=== PATIENT | female | born 1950 | race Caucasian/White ===

== ENCOUNTER → 2016-05-10 | Outpatient (CLI) | payer BC ==
[~2016-05-10] VITALS: Ht 162.6 cm; Wt 68.0 kg
[~2016-05-10] MED LIST: ACDPT PO; ACET-2469 PO; CETI10TA20 PO; CHOL50005 PO; MAGN500T PO; MULT-642 PO; OMG1KC PO; PNT40TEC; SIME125C PO; UBID10CA5 PO; ZLP10T PO; ZOLP10TA PO; [UNRECOGNIZED DRUG - CODE]
--- OUTSIDE RECORDS SUMMARY | 2016-05-10 09:30 | XMS REPORT | Continuity of Care Document ---
Author Author [facility] Organization [facility] Address Unknown Phone Unavailable Care Team Providers Care Egg Processor Name Role Phone Rajan Woods PCP [phone] Source Comments Some departments are not documenting in the electronic medical record. If you do not see the information that you expected, contact Release of Information in the Health Information Management department at [phone] for further assistance in locating additional records.[facility] Active Allergies and Adverse Reactions Allergen Noted Date Severity Reactions Comments Codeine 02/06/2016 Low NAUSEA AND VOMITING Morphine 02/06/2016 Medium SHORTNESS OF BREATH, ITCHING Sterapred 02/06/2016 High SWOLLEN TONGUE Current Medications Prescription Sig. Disp. Refills Start End Date Status Date Simethicone (GAS-X) 125 Take by mouth. Active mg cap cetirizine (ZYRTEC) 10 mg Take 10 mg by mouth at Active tablet bedtime daily. acetaminophen (TYLENOL) Take 1,000 mg by mouth at Active 500 mg tablet bedtime as needed for Pain. Max of 4,000 mg of acetaminophen in 24 hours. fish oil /omega-3 fatty Take 1 Cap by mouth Active acids (SEA-OMEGA) daily. 340/1000 mg capsule ranitidine hcl(+) Take 150 mg by mouth Active (ZANTAC) 150 mg tablet daily. Active Problems No known active problems Most Recent Encounters Date Type Specialty Providers Description 04/11/2016 Telephone GastroenterAdolfo Garcia MD Medication Follow-up 03/26/2016 Orders Only Adolfo Pinto MD 03/22/2016 Telephone Adolfo Pinto MD Follow-up Phone Call 03/22/2016 Result Letter Eagle Florez MD 03/19/2016 Telephone Adolfo Pinto MD Results; Records Request 03/16/2016 [facility] Eagle Barragan MD Diarrhea, unspecified Encounter 03/16/2016 Hospital Radiology Adolfo Newberry MD Encounter 03/14/2016 Screening Form 02/10/2016 Surgery Adolfo Newberry MD HYDROGEN BREATH TEST for weight loss , diarrhea 02/08/2016 Telephone Gastroenterology Adolfo Newberry MD Follow-up Phone Call 02/08/2016 [facility] Grant Ma MD Diarrhea Encounter 02/08/2016 Telephone Pretty Starkey RN Pre-Procedure Instructions Social History Tobacco Use Types Packs/Day Years Used Date Never Smoker Alcohol Use Drinks/Week oz/Week Comments No 0 Standard 0.0 drinks or equivalent Last Filed Vital Signs Vital Sign Reading Time Taken Blood Pressure 159/85 02/06/2016 8:34 AM CDT Pulse 96 02/06/2016 8:34 AM CDT Temperature 36.4 C (97.5 F) 02/06/2016 8:34 AM CDT Respiratory Rate 16 02/06/2016 8:34 AM CDT Height 1.676 m (5' 6") 02/06/2016 8:34 AM CDT Weight 72.576 kg (160 lb) 02/10/2016 9:23 AM CDT Body Mass Index 25.84 02/10/2016 9:23 AM CDT Oxygen Saturation - - Plan of Care Date Type Specialty Providers Description 06/18/2016 Appointment Allergy,Immunology and Kristi Agee DO Rheumatology [address] [facility] [address] [place] [address] [phone] (Fax) Health Maintenance Due Date Last Done Comments Hepatitis C Screening 1950 Physical (Comprehensive) 1958 Exam Pertussis Vaccine 1962 Tetanus Vaccine 1968 Cervical Cancer Screening 1972 Breast Cancer Screening 1991 Shingles Vaccine 2011 Influenza Vaccine 12/08/2015 Colorectal Cancer 03/16/2026 03/16/2016 Screening Procedures from Last 3 Months Procedure Name Priority Date/Time Associated Diagnosis Comments PROCEDURES-SCAN 02/17/2016 Results for this 1:46 PM VENEER PATCHER procedure are in the results section. HYDROGEN BREATH TEST for 02/10/2016 Weight loss weight loss , diarrhea 9:45 AM CDT Results from Last [address] ABD/PELV W CONTRAST (03/16/2016 2:05 PM) Impressions 1. No bowel obstruction, inflammatory mass, abscess or fistula. 2. No abdominal or pelvic adenopathy. Approved by Berna Duarte M.D. on 03/16/2016 3:20 PM By my electronic signature, I attest that I have personally reviewed the images for this examination and formulated the interpretations and opinions expressed in this report Finalized by Florinda Gallardo M.D. on 03/16/2016 3:47 PM. Dictated by Berna Duarte M.D. on 03/16/2016 2:[address] ABDOMEN AND PELVIS Clinical Indication:Female, 65 years old. Diarrhea and bloating. Prior Milena fundoplication. Evaluate for Whipple disease. Technique:Multiple contiguous axial images were obtained through the abdomen and pelvis following the administration of IV contrast material. Portal venous and delayed imaging was obtained. Post processing coronal and sagittal reconstruction images were made from the axial images. IV contrast: Isovue-370 Bowel contrast:Breeza and water Comparison: None FINDINGS: Lower Thorax: Mild dependent atelectasis. The heart is normal in size without significant pericardial effusion.. Liver and Biliary system: The liver is normal in size without focal hepatic lesion. The major portal veins are patent. The gallbladder is unremarkable. No biliary ductal dilatation. Spleen: The spleen is upper limits of normal in size. Adrenal Glands and Kidneys: The adrenal glands and kidneys are unremarkable. Pancreas and Retroperitoneum: Pancreas unremarkable. No enlarged retroperitoneal lymph nodes. Aorta and Major Vessels: Abdominal aorta is normal in caliber with mild aortoiliac atherosclerotic plaque. Bowel, Mesentery and Peritoneal space: Postsurgical changes of Milena fundoplica tion. The large and small bowel loops are normal in caliber. No bowel obstruction, ascites, or lymphadenopathy. Pelvis: The mildly distended urinary bladder is unremarkable. The uterus is absent. No enlarged pelvic lymph nodes or ascites. Abdominal wall and Osseous Structures: Mild degenerative changes of the thoracolumbar spine. Minimal anterolisthesis of L4-L5. Procedure Note Interface, Radiant Results - SatMar 16, 2016 3:[address] ABDOMEN AND PELVIS Clinical Indication: Female, 65 years old. Diarrhea and bloating. Prior Milena fundoplication. Evaluate for Whipple disease. Technique: Multiple contiguous axial images were obtained through the abdomen and pelvis following the administration of IV contrast material. Portal venous and delayed imaging was obtained. Post processing coronal and sagittal reconstruction images were made from the axial images. IV contrast: Isovue-370 Bowel contrast: Breeza and water Comparison: None FINDINGS: Lower Thorax: Mild dependent atelectasis. The heart is normal in size without significant pericardial effusion.. Liver and Biliary system: The liver is normal in size without focal hepatic lesion. The major portal veins are patent. The gallbladder is unremarkable. No biliary ductal dilatation. Spleen: The spleen is upper limits of normal in size. Adrenal Glands and Kidneys: The adrenal glands and kidneys are unremarkable. Pancreas and Retroperitoneum: Pancreas unremarkable. No enlarged retroperitoneal lymph nodes. Aorta and Major Vessels: Abdominal aorta is normal in caliber with mild aortoiliac atherosclerotic plaque. Bowel, Mesentery and Peritoneal space: Postsurgical changes of Milena fundoplication. The large and small bowel loops are normal in caliber. No bowel obstruction, ascites, or lymphadenopathy. Pelvis: The mildly distended urinary bladder is unremarkable. The uterus is absent. No enlarged pelvic lymph nodes or ascites. Abdominal wall and Osseous Structures: Mild degenerative changes of the thoracolumbar spine. Minimal anterolisthesis of L4-L5. IMPRESSION 1. No bowel obstruction, inflammatory mass, abscess or fistula. 2. No abdominal or pelvic adenopathy. Approved by Berna Duarte M.D. on 03/16/2016 3:20 PM By my electronic signature, I attest that I have personally reviewed the images for this examination and formulated the interpretations and opinions expressed in this report Finalized by Florinda Gallardo M.D. on 03/16/2016 3:47 PM. Dictated by Berna Duarte M.D. on 03/16/2016 2:23 PM. POC CREATININE, RAD (03/16/2016 1:22 PM) Component Value Range Creatinine, POC 0.8 0.4-1.00 mg/dL SURGICAL PATHOLOGY (03/16/2016 10:12 AM) Component Value Range PATHOLOGY REPORT [facility] [email or web address] Mica Hart MD, PhD, Director of Anatomic Pathology Department of Pathology and Laboratory Medicine [address] [place] [phone] Surgical Pathology Office: [phone] SURGICAL PATHOLOGY REPORT NAME: KEREN CLAY SURG PATH #: [id number] MR #: [id number] SPECIMEN CLASS: SR BILLING #: [id number] ALT ID #: LOCATION: [facility] DATE OF PROCEDURE: 03/16/2016 AGE: 65 SEX: F DATE RECEIVED: 03/17/2016 : 1950 TIME RECEIVED: 10:12 PHYSICIAN: ADOLFO NEWBERRY M.D. DATE OF REPORT: 03/20/2016 COPY TO: [facility] DATE OF PRINTIN03/21/2016 ################################################## ###################### Final Diagnosis: A. Small bowel mucosa, "duodenal", bx: Normal villous architecture. Congo red special stain is negative for amyloid deposition. B. Gastric mucosa, "gastric bx random", biopsy: No diagnostic abnormalities. No H. pylori-like organisms are identified on H and E sections. Congo red special stain is negative for amyloid deposition. C. Colonic mucosa, "random colon", bx: No diagnostic abnormalities. Congo red special stain is negative for amyloid deposition. D. Colonic mucosa, "rectal", bx: No diagnostic abnormalities. Congo red special stain is negative for amyloid deposition. Attestation: By this signature, I attest that I have personally formulated the final interpretation expressed in this report and that the above diagnosis is based upon my examination of the slides and/or other material indicated in this report. +++Electronically Signed Out By+++ ksw/03/19/2016 Interpreted by: Luis Wilson MD, Attending Physician 03/20/2016 ################################################## ###################### Material Received: A: duodenal bx B: gastric bx random C: random colon bx D: rectal bx History: 65-year-old female with a history of diarrhea, bloating and weight loss. Gross Description: A. Received in formalin labeled "duodenal biopsy" is a 0.6 x 0.5 x 0.2 cm aggregate of laureano-brown soft tissue fragments. The specimen is entirely submitted in cassette A1. (djm) B. Received in formalin labeled "random gastric biopsy" is a 0.5 x 0.3 x 0.2 cm aggregate of laureano-brown soft tissue fragments. The specimen is entirely submitted in cassette B1. (djm) C. Received in formalin labeled "random colon biopsy" is a 0.8 x 0.7 x 0.2 cm aggregate of laureano-brown soft tissue fragments. The specimen is entirely submitted in cassette C1. (djm) D. Received in formalin labeled "rectal biopsy" is a 1.1 x 0.7 x 0.2 cm aggregate of laureano-brown soft tissue fragments. The specimen is entirely submitted in cassette D1. (djm) djm/03/17/2016 ENDOSCOPIC ULTRASOUND (03/16/2016)COLONOSCOPY (03/16/2016)PROCEDURES-SCAN (02/16 1:46 PM) Narrative Ordered by an unspecified provider.
--- OUTSIDE RECORDS SUMMARY | 2016-05-10 09:31 | XMS REPORT | Continuity of Care Document ---
Author Author [facility] Organization [facility] Address Unknown Phone Unavailable Care Team Providers Care Tar Worker Name Role Phone Rajan Woods PCP [phone] Source Comments Some departments are not documenting in the electronic medical record. If you do not see the information that you expected, contact Release of Information in the Health Information Management department at [phone] for further assistance in locating additional records.[facility] Active Allergies and Adverse Reactions Allergen [...] Adolfo Pinto MD Results; Records Request 03/16/2016 [facility] Eagle Barragan MD Diarrhea, unspecified Encounter 03/16/2016 Hospital Radiology Adolfo Newberry MD Encounter 03/14/2016 Screening Form 02/10/2016 Surgery Adolfo Newberry MD HYDROGEN BREATH TEST for weight loss , diarrhea 02/08/2016 Telephone Gastroenterology Adolfo Newberry MD Follow-up Phone Call 02/08/2016 [facility] Grant Ma MD Diarrhea Encounter 02/08/2016 Telephone [...] Allergy,Immunology and Kristi Agee DO Rheumatology [address] [facility] [address] [place] [address] [phone] (Fax) Health Maintenance Due Date Last Done Comments Hepatitis C Screening 1950 Physical (Comprehensive) 1958 Exam Pertussis Vaccine 1962 Tetanus Vaccine 1968 Cervical Cancer Screening 1972 Breast Cancer Screening 1991 Shingles Vaccine 2011 Influenza Vaccine 12/08/2015 Colorectal Cancer 03/16/2026 03/16/2016 Screening Procedures from Last 3 Months Procedure Name Priority Date/Time Associated Diagnosis Comments PROCEDURES-SCAN 02/17/2016 Results for this 1:46 PM EYEGLASS CUTTER procedure are in the results section. HYDROGEN [...] Results - SatMar 16, 2016 3:[address] ABDOMEN AND PELVIS Clinical Indication: Female, [...] AM) Component Value Range PATHOLOGY REPORT [facility] [email or web address] Mica Hart MD, PhD, Director of Anatomic Pathology Department of Pathology and Laboratory Medicine [address] [place] [phone] Surgical Pathology Office: [phone] SURGICAL PATHOLOGY REPORT NAME: KEREN CLAY SURG PATH #: [id number] MR #: [id number] SPECIMEN CLASS: SR BILLING #: [id number] ALT ID #: LOCATION: [facility] DATE OF PROCEDURE: 03/16/2016 AGE: 65 SEX: F DATE RECEIVED: 03/17/2016 : 1950 TIME RECEIVED: 10:12 PHYSICIAN: ADOLFO NEWBERRY M.D. DATE OF REPORT: 03/20/2016 COPY TO: [facility] DATE OF PRINTIN03/21/2016 ################################################## ###################### Final [...]
[2016-05-10 10:09] LABS: BASOPHILS % (AUTO) 0 % (0-10); EOSINOPHILS # (AUTO) 0.1 10^3/uL (0.0-0.3); EOSINOPHILS % (AUTO) 2 % (0-10); LYMPHOCYTES # (AUTO) 1.2 X 10^3 (1.0-4.0); LYMPHOCYTES % (AUTO) 40 % (12-44); MEAN CORPUSCULAR HEMOGLOBIN 29 PG (25-34); MEAN CORPUSCULAR HGB CONC 34 G/DL (32-36); MEAN CORPUSCULAR VOLUME 87 FL (80-99); MEAN PLATELET VOLUME 9.7 FL (7.4-10.4); MONOCYTES # (AUTO) 0.3 X 10^3 (0.0-1.0); MONOCYTES % (AUTO) 11 % (0-12); NEUTROPHILS # (AUTO) 1.4 X 10^3 (1.8-7.8); NEUTROPHILS % (AUTO) 47 % (42-75); PLATELET COUNT 201 10^3/uL (130-400); RED BLOOD COUNT 4.54 10^6/uL (4.35-5.85)
--- NOTE | 2016-05-10 10:56 | Progress Note-Standard ---
Standard Progress Note Progress Notes/Assess & Plan Progress/Assessment & Plan consult for lumbar puncture pt chart reviewed. ct normal. platelets wnl. start time 1025 end time 1044 in sitting position skin prepped and draped under sterile technique. subarachnoid space id'd with positive csf return at lumbar 2-3 x 1 attempt.. appearance clear. opening pressure 16 cm H2O. 3 cc x 4 vials drawn off and labeled for lab examination. needle withdrawn. pt tolerated procedure well. bp 110\77 hr 61 resp 16. sao2 99% FLAVIO CHO CRNA May 10, 2016 10:56
[2016-05-10 11:34] LABS: APPEARANCE,CSF CLEAR; COLOR,CSF COLORLESS; WHITE BLOOD CELL,CSF 0 CELLS (0-5)
[2016-05-10 11:35] VITALS: BP 110/71
[2016-05-10 11:46] LABS: CSF GLUCOSE 57 MG/DL (50-80); CSF TOTAL PROTEIN 19 MG/DL (15-40)
[2016-05-14 08:02] LABS: CSF VDRL Non Reactive (NON REACTIV)
--- OUTSIDE RECORDS SUMMARY | 2016-05-21 15:10 | XMS REPORT | Continuity of Care Document ---
Author Author [facility] Organization [facility] Address Unknown Phone Unavailable Care Team Providers Care Edge Runner Name Role Phone Rajan Woods PCP [phone] Source Comments Some departments are not documenting in the electronic medical record. If you do not see the information that you expected, contact Release of Information in the Health Information Management department at [phone] for further assistance in locating additional records.[facility] Active Allergies and Adverse Reactions Allergen [...] Adolfo Pinto MD Results; Records Request 03/16/2016 [facility] Eagle Brady MD Diarrhea, unspecified Encounter 03/16/2016 Hospital Radiology [...] Allergy,Immunology and Kristi Agee DO Rheumatology [address] [facility] [address] [place] [address] [phone] (Fax) Health Maintenance Due Date Last Done Comments Hepatitis C Screening 1950 Physical (Comprehensive) 1958 Exam Pertussis Vaccine 1962 Tetanus Vaccine 1968 Cervical Cancer Screening 1972 Breast Cancer Screening 1991 Shingles Vaccine 2011 Influenza Vaccine 12/08/2015 Colorectal Cancer 03/16/2026 03/16/2016 Screening Results from Last [address] ABD/PELV [...] Results - SatMar 16, 2016 3:[address] ABDOMEN AND PELVIS Clinical Indication: Female, [...] AM) Component Value Range PATHOLOGY REPORT [facility] www.[email or web address] Mica Hart MD, PhD, Director of Anatomic Pathology Department of Pathology and Laboratory Medicine [address] [place] [phone] Surgical Pathology Office: [phone] SURGICAL PATHOLOGY REPORT NAME: KEREN CLAY SURG PATH #: [id number] MR #: [id number] SPECIMEN CLASS: SR BILLING #: [id number] ALT ID #: LOCATION: [facility] DATE OF PROCEDURE: 03/16/2016 AGE: 65 SEX: F DATE RECEIVED: 03/17/2016 : 1950 TIME RECEIVED: 10:12 PHYSICIAN: ADOLFO NEWBERRY M.D. DATE OF REPORT: 03/20/2016 COPY TO: E[facility]LE BRAD[facility] DATE OF PRINTIN03/21/2016 ################################################## ###################### Final [...] is entirely submitted in cassette D1. (djm) kiana/03/17/2016 ENDOSCOPIC ULTRASOUND (03/16/2016)COLONOSCOPY (03/16/2016)
== END ==
LOC: SDC 09:25 → EDSTATUS 10:00
PROVIDERS: ATTEND Anesthesiology
DX: R51 Headache (principal); H53.9 Unspecified visual disturbance; R50.9 Fever, unspecified; Z20.828 Contact with and (suspected) exposure to other viral communicable diseases
CPT/HCPCS: 36415; 82945; 84157; 85025; 86592; 87070; 87116; 87205; 87252; 89051

== ENCOUNTER 2016-05-17 14:35 | Outpatient (RCR) | payer BC ==
--- OUTSIDE RECORDS SUMMARY | 2016-05-14 14:40 | XMS REPORT | Continuity of Care Document ---
Author Author [facility] Organization [facility] Address Unknown Phone Unavailable Care Team Providers Care Acid Splicer Name Role Phone Rajan Woods PCP [phone] Source Comments Some departments are not documenting in the electronic medical record. If you do not see the information that you expected, contact Release of Information in the Health Information Management department at [phone] for further assistance in locating additional records.[facility] Active Allergies and Adverse Reactions Allergen Noted [...] Adolfo Pinto MD Results; Records Request 03/16/2016 [facility] Eagle Barragan MD Diarrhea, unspecified Encounter 03/16/2016 Hospital Radiology Adolfo Newberry MD Encounter 03/14/2016 Screening Form Social History Tobacco Use Types Packs/Day Years [...] Allergy,Immunology and Kristi Agee DO Rheumatology [address] [facility] [address] [place] [address] [phone] (Fax) Health Maintenance Due Date Last Done Comments Hepatitis C Screening 1950 Physical (Comprehensive) 1958 Exam Pertussis Vaccine 1962 Tetanus Vaccine 1968 Cervical Cancer Screening 1972 Breast Cancer Screening 1991 Shingles Vaccine 2011 Influenza Vaccine 12/08/2015 Colorectal Cancer 03/16/2026 03/16/2016 Screening Procedures from Last 3 Months Procedure Name Priority Date/Time Associated Diagnosis Comments PROCEDURES-SCAN 02/17/2016 Results for this 1:46 PM GINNING 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 Results from Last [address] ABD/PELV [...] Results - SatMar 16, 2016 3:[address] ABDOMEN AND PELVIS Clinical Indication: Female, [...] AM) Component Value Range PATHOLOGY REPORT [facility] [email or web address] Victor Mica Hart MD, PhD, Director of Anatomic Pathology Department of Pathology and Laboratory Medicine [address] [place] [phone] Surgical Pathology Office: [phone] SURGICAL PATHOLOGY REPORT NAME: KEREN CLAY SURG PATH #: [id number] MR #: [id number] SPECIMEN CLASS: SR BILLING #: [id number] ALT ID #: LOCATION: [facility] DATE OF PROCEDURE: 03/16/2016 AGE: 65 SEX: F DATE RECEIVED: 03/17/2016 : 1950 TIME RECEIVED: 10:12 PHYSICIAN: ADOLFO NEWBERRY M.D. DATE OF REPORT: 03/20/2016 COPY TO: E[facility]LE [facility] DATE OF PRINTIN03/21/2016 ################################################## ###################### Final [...]
--- OUTSIDE RECORDS SUMMARY | 2016-05-15 14:39 | XMS REPORT | Continuity of Care Document ---
Author Author [facility] Organization [facility] Address Unknown Phone Unavailable Care Team Providers Care Lapel Stitcher Name Role Phone Rajan Woods PCP [phone] Source Comments Some departments are not documenting in the electronic medical record. If you do not see the information that you expected, contact Release of Information in the Health Information Management department at [phone] for further assistance in locating additional records.[facility] Active Allergies and Adverse Reactions Allergen [...] Date Type Specialty Providers Description 04/11/2016 Telephone GastroenterAdlofo Garcia MD Medication Follow-up 03/26/2016 Orders Only Adolfo Pinto MD 03/22/2016 Telephone Adolfo Pinto MD Follow-up Phone Call 03/22/2016 Result Letter Eagle Florez MD 03/19/2016 Telephone Adolfo Pinto MD Results; Records Request 03/16/2016 [facility] Eagle Barragan MD Diarrhea, unspecified Encounter [...] Providers Description 06/18/2016 Appointment Allergy,Immunology and Kristi Aege DO Rheumatology [address] [facility] [address] [place] [address] [phone] (Fax) Health Maintenance Due Date Last Done Comments Hepatitis C Screening 1950 Physical (Comprehensive) 1958 Exam Pertussis Vaccine 1962 Tetanus Vaccine 1968 Cervical Cancer Screening 1972 Breast Cancer Screening 1991 Shingles Vaccine 2011 Influenza Vaccine 12/08/2015 Colorectal Cancer 03/16/2026 03/16/2016 Screening Procedures from Last 3 Months Procedure Name Priority Date/Time Associated Diagnosis Comments PROCEDURES-SCAN 02/17/2016 Results for this 1:46 PM CONCRETE BATCH PLANT 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 [...] Results - SatMar 16, 2016 3:50 PM CONCRETE BATCH PLANT OPERATOR CT ABDOMEN AND PELVIS Clinical Indication: [...] Value Range PATHOLOGY REPORT [facility] [email or web address] Mica Hart MD, PhD, Director of Anatomic Pathology Department of Pathology and Laboratory Medicine [address] [place] [phone] Surgical Pathology Office: [phone] SURGICAL PATHOLOGY REPORT NAME: KEREN CLAY SURG PATH #: [id number] MR #: [id number] SPECIMEN CLASS: SR BILLING #: [id number] ALT ID #: LOCATION: [facility] DATE OF PROCEDURE: 03/16/2016 AGE: 65 SEX: F DATE RECEIVED: 03/17/2016 : 1950 TIME RECEIVED: 10:12 PHYSICIAN: ADOLFO NEWBERRY M.D. DATE OF REPORT: 03/20/2016 COPY TO: EAGLE OLYAEE [facility] DATE OF PRINTIN03/21/2016 ################################################## ###################### Final Diagnosis: [...]
== END 2016-08-12 | disposition home or self-care (01) ==
LOC: LAB 14:35
PROVIDERS: ATTEND Nurse Practitioner Family
DX: K58.9 Irritable bowel syndrome, unspecified (principal); R63.4 Abnormal weight loss
CPT/HCPCS: 82274; 87045; 87046; 87177

== ENCOUNTER → 2016-06-01 | Outpatient (CLI) | payer BC ==
--- OUTSIDE RECORDS SUMMARY | 2016-06-01 11:21 | XMS REPORT | Continuity of Care Document ---
Author Author [facility] Organization [facility] Address Unknown Phone Unavailable Care Team Providers Care Research Asst Name Role Phone Rajan Woods PCP [phone] Source Comments Some departments are not documenting in the electronic medical record. If you do not see the information that you expected, contact Release of Information in the Health Information Management department at [phone] for further assistance in locating additional records.[facility] Active Allergies and Adverse Reactions Allergen [...] Adolfo Pinto MD Results; Records Request 03/16/2016 [facility] Eagle Brady MD Diarrhea, unspecified Encounter [...] Allergy,Immunology and Kristi Agee DO Rheumatology [address] [facility] [address] [place] [address] [phone] (Fax) Health Maintenance Due Date Last Done [...] Results - SatMar 16, 2016 3:50 PM SED 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 [email or web address] Mica Hart MD, PhD, Director of Anatomic Pathology Department of Pathology and Laboratory Medicine [address] [place] [phone] Surgical Pathology Office: [phone] SURGICAL PATHOLOGY REPORT NAME: KEREN CLAY SURG PATH #: [id number] MR #: [id number] SPECIMEN CLASS: SR BILLING #: [id number] ALT ID #: LOCATION: [facility] DATE OF PROCEDURE: 03/16/2016 AGE: 65 SEX: F DATE RECEIVED: 03/17/2016 : 1950 TIME RECEIVED: 10:12 PHYSICIAN: ADOLFO NEWBERRY M.D. DATE OF REPORT: 03/20/2016 COPY TO: E[facility]LE BRAD[facility] DATE OF PRINTIN03/21/2016 ################################################## ###################### Final Diagnosis: [...]
--- NOTE | 2016-06-01 13:00 | Diagnostic Imaging Report ---
PROCEDURE: US Carotid Duplex Bilateral. TECHNIQUE: Multiple real-time grayscale images were obtained over the carotid arteries in various projections bilaterally. Additional duplex Doppler and color Doppler images were also obtained. INDICATION: Ataxia. Dizziness. FINDINGS: There is moderate plaquing noted in the carotid bulbs bilaterally. This is predominantly calcified. Waveforms and peak velocities are normal throughout the carotid arteries as well as vertebral arteries throughout the neck. Carotid ratios are symmetrical. IMPRESSION: Moderate atherosclerotic plaquing with no hemodynamic changes present within the carotid arteries. Stenosis is estimated to be 30% or less bilaterally within the internal carotid arteries. Dictated by: Dictated on workstation # [id number]
== END ==
LOC: RAD 11:17
PROVIDERS: ATTEND Internal Medicine
DX: I65.23 Occlusion and stenosis of bilateral carotid arteries (principal)
CPT/HCPCS: 93880

== ENCOUNTER 2016-06-22 11:25 | Outpatient (RCR) | payer BC ==
--- OUTSIDE RECORDS SUMMARY | 2016-06-22 11:29 | XMS REPORT | Continuity of Care Document ---
Author Author [facility] Organization [facility] Address Unknown Phone Unavailable Care Team Providers Care Cello Teacher Name Role Phone PeggyRajan PCP [phone] Source Comments Some departments are not documenting in the electronic medical record. If you do not see the information that you expected, contact Release of Information in the Health Information Management department at [phone] for further assistance in locating additional records.[facility] Active Allergies and Adverse Reactions Allergen Noted Date Severity Reactions Comments Azithromycin 06/18/2016 High ANGIOEDEMA Within a few minutes, she had tongue swelling. Codeine 02/06/2016 Low NAUSEA AND VOMITING Morphine 02/06/2016 Medium SHORTNESS OF BREATH, ITCHING Current Medications Prescription Sig. Disp. Refills Start End Date Status Date Simethicone (GAS-X) 125 Take by mouth. Active mg cap cetirizine (ZYRTEC) 10 mg Take 10 mg by mouth at Active tablet bedtime daily. acetaminophen (TYLENOL) Take 1,000 mg by mouth at Active 500 mg tablet bedtime as needed for Pain. Max of 4,000 mg of acetaminophen in 24 hours. ranitidine hcl(+) Take 150 mg by mouth Active (ZANTAC) 150 mg tablet daily. CHOLECALCIFEROL (VITAMIN Take by mouth. Active D3) (VITAMIN D3 PO) cyanocobalamin (VITAMIN Inject 1,000 mcg into the Active B-12, RUBRAMIN) 1,000 muscle every 30 days. mcg/mL injection doxycycline (VIBRAMYCIN) Take 100 mg by mouth Active 100 mg tablet twice daily. hydroxychloroquine Take 200 mg by mouth Active (PLAQUENIL) 200 mg tablet daily. Take with food. UDMTA-N-AZDEIZSQMUIPK Take by mouth. Active (FOOD ENZYME PO) magnesium oxide (MAG-OX) Take 400 mg by mouth Active 400 mg tablet daily. zolpidem (AMBIEN) 10 mg Take 10 mg by mouth at Active tablet bedtime as needed for Sleep. potassium chloride SR Take 10 mEq by mouth Active (K-DUR) 10 mEq tablet daily. Take with a meal and a full glass of water. ALPRAZolam (XANAX) 0.25 Take 0.25 mg by mouth at Active mg tablet bedtime as needed for Anxiety. BIFIDOBACTERIUM INFANTIS Take by mouth. Active (ALIGN PO) DEXTROMETHORPHAN HBR Take by mouth. Active (BENYLIN ADULT FORMULA PO) fish oil /omega-3 fatty Take 1 Cap by mouth 06/19/19 Discontin acids (SEA-OMEGA) daily. 17 ued 340/1000 mg capsule Active Problems No known active problems Most Recent Encounters Date Type Specialty Providers Description 06/18/2016 [facility] Kristi Agee, Other urticaria Encounter 06/18/2016 Office Visit Allergy,Immunology and Kristi Agee DO Chronic urticaria Rheumatology (Primary Dx) 06/13/2016 Telephone Allergy,Immunology and Kristi Agee DO Other - questions about Rheumatology appointment 04/11/2016 Telephone Gastroenterology Trae Llanes MD Medication Follow-up 03/26/2016 Orders Only Gastroenterology Tare Llanes MD Social History Tobacco Use Types Packs/Day Years Used Date Never Smoker Alcohol Use Drinks/Week oz/Week Comments No 0 Standard 0.0 drinks or equivalent Last Filed Vital Signs Vital Sign Reading Time Taken Blood Pressure 117/73 06/18/2016 10:15 AM CDT Pulse 71 06/18/2016 10:15 AM CDT Temperature 36.8 C (98.2 F) 06/18/2016 10:15 AM CDT Respiratory Rate 16 06/18/2016 10:15 AM CDT Height 1.676 m (5' 5.98") 06/18/2016 10:15 AM CDT Weight 65.59 kg (144 lb 9.6 oz) 06/18/2016 10:15 AM CDT Body Mass Index 23.35 06/18/2016 10:15 AM CDT Oxygen Saturation - - Plan of Care Health Maintenance Due Date Last Done Comments Physical (Comprehensive) 1957 Exam Cervical Cancer Screening 1972 Breast Cancer Screening 1991 Shingles Vaccine 2011 Osteoporosis Screening 2016 Prevnar/Pneumovax (#1) 2016 Influenza Vaccine 12/07/2016 12/08/2015 Tetanus Vaccine 04/08/2021 04/08/2011 (Previously completed) Colorectal Cancer 03/16/2026 03/16/2016 Screening Pertussis Vaccine Addressed 04/08/2011 (Previously completed) Overridden with the intention of not completing the topic Hepatitis C Screening Completed 06/18/2016 Results from Last 3 Months GALACTOSE ALPHA 1,3 GALACTOSE IGE (06/18/2016 1:11 PM) Component Value Range Mbbbixmzl-wtgcw-9,3-galac <0.10 tose IgE Reference range: <0.35 Unit: kU/L Previous reports (EPIFANIO 2009;123:426-433) have demonstrated that patients with IgE antibodies to zestclwle-r-6,3-galactose are at risk for delayed anaphylaxis, angioedema, or urticaria following consumption of beef, pork, or higgins. *This test was developed and its performance characteristics determined by [facility]. It has not been cleared or approved by the U.S. Food and Drug Administration. Testing Performed At: [facility] [address] [place] [address] [place] [id number] CLIA ID: [id number] LDH-LACTATE DEHYDROGENASE (06/18/2016 1:11 PM) Component Value Range Lactate Dehydrogenase 153 100-210 U/L Specimen Blood IMMUNOFIXATION, SERUM (IFES) (06/18/2016 1:11 PM) Component Value Range Immuno Fix-Serum NO PARAPROTEIN SEEN Pathologist Signature INTERPRETED BY DENA OCHOA M.D. By the PATH SIGNATURE ABOVE, I attest that I have personally formulated the final interpretation expressed in this report and that the above diagnosis is based upon my examination of the slides and/or other material indicated in this report. Specimen Blood TOTAL PROTEIN SEP (06/18/2016 1:11 PM) Component Value Range Total Protein 6.5 6.0-8.0 g/dL Specimen Blood ELECTROPHORESIS-SERUM PROTEIN (06/18/2016 1:11 PM) Component Value Range Total Protein-SEP 6.5 6.0-8.0 G/DL Albumin % 61.7 48-68 % Alpha 1 % 4.3 2-6 % Alpha 2 % 9.8 5-15 % Beta %,Serum 10.5 9-17 % Gamma % 13.7 9-21 % Interpretation - SEP NORMAL ELECTROPHORETIC PATTERN Pathologist Signature INTERPRETED BY DENA OCHOA M.D. By the PATH SIGNATURE ABOVE, I attest that I have personally formulated the final interpretation expressed in this report and that the above diagnosis is based upon my examination of the slides and/or other material indicated in this report. Specimen Blood C REACTIVE PROTEIN (CRP) (06/18/2016 1:11 PM) Component Value Range C-Reactive Protein <0.02 <1.0 MG/DL Specimen Blood ANTI-THYROPEROXIDASE (MICROSOMAL)AB (06/18/2016 1:11 PM) Component Value Range Microsomal AB, TPO <3.00 <5.61 IU/ML Specimen Blood HEPATITIS C AB (06/18/2016 1:11 PM) Component Value Range Anti HCV NEG Specimen Blood CRYOGLOBULIN W REFLEX IMMUNOFIXATION (06/18/2016 1:11 PM) Component Value Range Cryoglobulin, S Negative Reference range: Negative Unit: %ppt This test is negative at 24 hours. All samples are held and reviewed again at 7 days. If delayed precipitation occurs after 7 days, Immunofixation will be performed and an additional report will follow. [email or web address] Specimen Blood COMPLEMENT, TOTAL (CH50) (06/18/2016 1:11 PM) Component Value Range Complement CH50 64Comment: 41-95 U/mL CH50 INTERPRETATION <41 LOW 41-95 NORMAL >95 HIGH Specimen Blood SED RATE (06/18/2016 1:11 PM) Component Value Range Sed Rate -ESR 1 0-30 MM/HR Specimen Blood THYROGLOBULIN AB (06/18/2016 1:11 PM) Component Value Range Thyroglobulin Ab <3.00 <4.11 IU/ML Specimen Blood TRYPTASE (06/18/2016 1:11 PM) Component Value Range Tryptase <1.0 Reference range: <11.5 Unit: ng/mL [facility] Specimen Blood
[2016-07-02 10:14] LABS: URINE VOLUME REF 3600 ML
[2016-07-02 10:15] LABS: CREATININE METANEPHRINES MG/DL 29 MG/DL; METANEPHRINES RATIO 83 UG/G CRT (0-300); NORMETANEPHRINES RATIO 190 UG/G CRT (0-400)
[2016-07-02 10:16] LABS: NETANEPHRINES INTERP SEE FOOTNOTE
[2016-07-02 10:18] LABS: META CREAT URINE 1044 MG/D (500-1400); METANEPHRINES URINE 86 ug/day (39-143); NORMETANEPHRINES URINE 198 ug/day (109-393)
[2016-07-02 10:23] LABS: MISC LAB TEST & RESULT U N-METHYLH LVL
== END 2016-09-20 | disposition home or self-care (01) ==
LOC: LAB 11:25
PROVIDERS: ATTEND Allergy & Immunology Clinical & Laboratory Immunology
DX: L50.8 Other urticaria (principal)
CPT/HCPCS: 36415; 83835

== ENCOUNTER → 2016-07-06 | Outpatient (CLI) | payer BC ==
[~2016-07-06] MED LIST changes: +REGADENOSON 0.4 MG/5 ML SYR (LEXISCAN) IV ONE
[2016-07-06] MEDS: CATHETER FLUSH 10 ML SYR IV PRN ×2 (07:32→08:29)
[2016-07-06 08:28] VITALS: BP 145/79
--- NOTE | 2016-07-06 14:50 | STRESS TEST ---
PROCEDURE PHYSICIAN: VIET POWELL DATE OF PROCEDURE: 07/06/2016 RESTING AND POST REGADENOSON TECHNETIUM 99M TETROFOSMIN SPECT CT IMAGING ORDERING PHYSICIAN: Dr. Kaur. PRIMARY PHYSICIAN: Dr. Kaur. CLINICAL DIAGNOSES: 1. Chest discomfort. 2. Coronary artery disease. Baseline images were carried out after injection of 10.44 mCi technetium 99m tetrofosmin. This was followed by 0.4 mg of regadenoson and 31.5 mCi technetium 99m tetrofosmin for stress imaging. This was carried out under Dr. Kaur's supervision and the electrocardiographic portion of this study is reported separately by Dr. Kaur. Review of images at rest and following stress, does not indicate any significant perfusion defect with myocardial ischemia or infarction. Gated images show normal global left ventricular systolic function with normal regional wall motion. Left ventricular ejection fraction is calculated to be 74%. Left ventricular end-diastolic volume is 68 mL. TID is absent (1.1). CONCLUSION: 1. No evidence of any significant myocardial ischemia or infarction on this study. 2. Normal regional wall motion. 3. Normal global left ventricular systolic function with a calculated ejection fraction of 74%. 4. Normal left ventricular cavity size. Job ID: [id number] Dictated Date: 07/06/2016 13:41:02 Talent Engineer Date: 07/06/2016 14:46:36 / beth
== END ==
LOC: CARD 07:10
PROVIDERS: ATTEND Nurse Practitioner Family
DX: I25.10 Atherosclerotic heart disease of native coronary artery without angina pectoris (principal); R07.9 Chest pain, unspecified
CPT/HCPCS: 78452; 93017

== ENCOUNTER 2016-11-23 12:05 | Outpatient (CLI) | payer BC ==
[~2016-11-23] VITALS: Ht 162.6 cm; Wt 60.1 kg
[~2016-11-23 12:05] MED LIST changes: -REGADENOSON 0.4 MG/5 ML SYR (LEXISCAN) IV ONE
[2016-11-23] MEDS ORDERED: TRYP500C PO (12:35)
[2016-11-23] MEDS ORDERED: CNC1KV IJ (12:35)
[2016-11-23] MEDS ORDERED: LORA10TA7 PO (12:35)
[2016-11-23] MEDS ORDERED: CHOL4PAC16 PO (12:35)
[2016-11-23] MEDS ORDERED: NYST50002 PO (12:35)
[2016-11-23] MEDS ORDERED: GLUT25PO4 INJ (12:35)
[2016-11-23] MEDS ORDERED: THIO300C PO (12:35)
[2016-11-23] MEDS ORDERED: POT1TABL PO (12:35)
[2016-11-23] MEDS ORDERED: MULT-297 PO (12:35)
[2016-11-23] MEDS ORDERED: [UNRECOGNIZED DRUG - CODE] PO (12:35)
[2016-11-23] MEDS ORDERED: MAGN100T PO (12:35)
[2016-11-23] MEDS ORDERED: FLDR.1T PO (12:35)
[2016-11-23] MEDS ORDERED: RANI150T15 PO (12:35)
[2016-11-23] MEDS ORDERED: AZIT250T PO (12:35)
[2016-11-23] MEDS ORDERED: [UNRECOGNIZED DRUG - OTHER] PO (12:35)
[2016-11-23] MEDS ORDERED: THYR30TA2 PO (12:35)
[2016-11-23] MEDS ORDERED: [UNRECOGNIZED DRUG - CODE] PO (12:35)
[2016-11-23] MEDS ORDERED: LACT1CAP64 PO (12:35)
[2016-11-23 12:43] VITALS: BP 147/84
[2016-11-28] MEDS ORDERED: TRAM50TA2 PO (13:26)
== END 2016-11-26 10:49 | disposition home or self-care (01) ==
LOC: PREOP 12:05
PROVIDERS: ATTEND Surgery
DX: Z01.818 Encounter for other preprocedural examination (principal); R59.0 Localized enlarged lymph nodes
CPT/HCPCS: 87081

== ENCOUNTER 2016-11-28 09:28 | Day surgery (SDC) | payer BC ==
[~2016-11-28] VITALS: Ht 162.6 cm; Wt 60.1 kg
[~2016-11-28 09:28] MED LIST changes: +AZIT250T PO; +CHOL4PAC16 PO; +CNC1KV IJ; +FLDR.1T PO; +GLUT25PO4 INJ; +LACT1CAP64 PO; +LORA10TA7 PO; +MAGN100T PO; +MULT-297 PO; +NYST50002 PO; +POT1TABL PO; +RANI150T15 PO; +THIO300C PO; +THYR30TA2 PO; +TRYP500C PO; +[UNRECOGNIZED DRUG - CODE] PO; +[UNRECOGNIZED DRUG - CODE] PO; +[UNRECOGNIZED DRUG - OTHER] PO
--- OUTSIDE RECORDS SUMMARY | 2016-11-28 09:47 | XMS REPORT | Clinical Summary ---
Author Author [facility] Organization [facility] Address Unknown Phone Unavailable Care Team Providers Care Edge Stainer Machine Name Role Phone PCP Unavailable Source Comments Some departments are not documenting in the electronic medical record. If you do not see the information that you expected, contact Release of Information in the Health Information Management department at [phone] for further assistance in locating additional records.[facility] Allergies Active Allergy Reactions Severity Noted Date Comments Methylprednisolone SHORTNESS OF BREATH, High 07/05/2016 Pt requesting to make a SWOLLEN TONGUE note that she may need to avoid all steroids. Morphine SHORTNESS OF BREATH, Medium 02/06/2016 ITCHING Codeine NAUSEA AND VOMITING Low 02/06/2016 Current Medications Prescription Sig. Disp. Refills Start [...] 200 mg tablet daily. Take with food. [id number] Take by mouth. Active (FOOD ENZYME PO) [...] by mouth. Active (BENYLIN ADULT FORMULA PO) Active Problems Problem Noted Date Urticaria 07/02/2016 Overview: Presumed to be urticaria but may be chronic pruritus vs insect bites. Patient believes these rashes are Herxheimer reactions from the doxycycline for chronic Lyme disease. She is also worried that some of the rashes may be associated with spirochetes moving. She also has a history of urticaria back in 2007 that were exacerbated by pressure. Currently managed with Zyrtec. Weight loss 07/02/2016 Overview: 40-45# since September. Has significantly altered her dietary habits, avoiding gluten, dairy, and sugar because she feels these things promote the chronic Lyme disease. Mental status change 07/02/2016 Overview: Patient describes "episodes" that last 14-18 hours when she is non-function. She can walk but cannot make decisions and may have HTN and tachycardia as well as hot/cold flashes with cold hands and nose. She described it as if some flips a switch off and then back on. Xanax has not been helpful. Cozaar caused her BP to drop too far. MRI 01/09/16 was negative other than some chronic small vessel ischemic changes in the periventricular and subcortical white matter. Allergy or toxic reaction to venom 07/02/2016 Overview: Large local reactions to bees and hornets. Treated with antihistamines. Recurrent sinus infections 07/02/2016 Overview: Sounds like she has had recurrent and/or chronic sinusitis which has characteristically improved since starting the doxycycline and is also better with Zyrtec. May have some allergic rhinoconjunctivitis component. Suspected Lyme disease 07/02/2016 Overview: Patient believes she has chronic Lyme disease and is followed by a local physician Dr. Kaur for this. Currently on week 2 of doxycycline and Plaquenil under the care of Dr. Kaur. She states the plan is to increase her to doxycycline 400 mg IV. She has traveled to the [facility] and [place]. ECHO 09/26/15 revealed a LVEF 60%, mild TR and PAP of 30 mmHg. Chronic diarrhea 07/02/2016 Overview: September through January, associated with 40-45# weight loss as well. EGD and colonoscopy 11/28/15 was reportedly normal other than an intact fundoplication and a few sigmoid diverticula. Biopsies were within normal limits. Celiac evaluation has been negative. CT neck/chest/abd/pelvis 12/29/15 was negative other than L4-5 stenosis and sigmoid diverticulosis. Treated with Xifaxin for possible SIBO and recently Flagyl for the chronic Lyme disease. No identifiable trigger and this has resolved. Biopsies negative 03/22/16 (even negative congo red stain). GET negative 03/06/16. Encounters Date Type Specialty Care Team Description 08/28/2016 Documentation Allergy,Immunology and Kristi Agee DO Rheumatology from Last 3 Months Family History Medical History Relation Name Comments Cancer Father skin Diabetes Father Heart Disease Father Cancer-Breast Mother Diabetes Mother Heart Disease Mother Stroke Mother Relation Name Status Comments Father Mother Social History Tobacco Use Types Packs/Day Years Used Date Never Smoker Alcohol Use Drinks/Week oz/Week Comments No 0 Standard 0.0 drinks or equivalent Sex Assigned at Date Recorded Not on file Last Filed Vital Signs Vital Sign Reading Time Taken Blood Pressure 117/73 06/18/2016 10:15 AM CDT Pulse 71 06/18/2016 10:15 AM CDT Temperature 36.8 C (98.2 F) 06/18/2016 10:15 AM CDT Respiratory Rate 16 06/18/2016 10:15 AM CDT Oxygen Saturation - - Inhaled Oxygen - - Concentration Weight 65.6 kg (144 lb 9.6 oz) 06/18/2016 10:15 AM CDT Height 167.6 cm (5' 5.98") 06/18/2016 10:15 AM CDT Body Mass Index 23.35 06/18/2016 10:15 AM CDT Plan of Treatment Health Maintenance Due Date Last Done Comments PHYSICAL (COMPREHENSIVE) 1957 EXAM BREAST CANCER SCREENING 1991 SHINGLES VACCINE 2011 OSTEOPOROSIS SCREENING 2016 PREVNAR/PNEUMOVAX (#1) 2016 INFLUENZA VACCINE 12/07/2016 12/08/2015 TETANUS VACCINE 04/08/2021 04/08/2011 (Previously completed) COLORECTAL CANCER 03/16/2026 03/16/2016 SCREENING PERTUSSIS VACCINE Addressed 04/08/2011 (Previously completed) Overridden with the intention of not completing the topic HEPATITIS C SCREENING Completed 06/18/2016 Results Not on filefrom Last 3 Months
--- OUTSIDE RECORDS SUMMARY | 2016-11-28 09:47 | XMS REPORT | Encounter Summary ---
Author Author [facility] Organization [facility] Address Unknown Phone Unavailable Care Team Providers Care Floor Surfacer Name Role Phone PCP Unavailable Encounter Details Date Type Department Care Team Description 08/28/2016 Documentation [facility] Kristi Agee DO Physicians - Internal [address] [facility] [place] [address] [place] [address] OFFICE BLDG [phone] [address] [place] [address] Social History Tobacco Use Types Packs/Day Years Used Date Never Smoker Alcohol Use Drinks/Week oz/Week Comments No 0 Standard 0.0 drinks or equivalent Sex Assigned at Date Recorded Not on file as of this encounter Progress Notes * Kristi Agee DO - 08/28/2016 9:53 AM CDT Reviewed outside records from [facility] - scanned into EMR and pertinent findings were noted below: 07/06/16 - resting and post-regadenoson technetium 99m tetrofosmin spect CT imagin. No evidence of any significant myocardial ischemia or infarction on this study. 2. Normal regional wall motion. 3. Normal global left ventricular systolic function with a calculated ejection fraction of 74%. 4. Normal left ventricular cavity size. in this encounter Plan of Treatment Not on fileas of this encounter Visit Diagnoses Not on filein this encounter
[2016-11-28] MEDS ORDERED: proPOfol 200 MG/20 ML (DIPRIVAN) VIAL IV ONE (09:57)
[2016-11-28] MEDS ORDERED: SEVOFLURANE (ULTANE) 15 ML INHAL SOLN ONE ×3 (09:57→11:53)
[2016-11-28] MEDS ORDERED: LIDOCAINE PF 2% 5 ML (XYLOCAINE) VIAL ONE (09:57)
[2016-11-28] MEDS ORDERED: MIDAZOLAM 2 MG/2 ML (VERSED) VIAL ONE (09:58)
[2016-11-28] MEDS ORDERED: fentaNYL INJECTION 100 MCG/2 ML AMP ONE (09:58)
[2016-11-28] MEDS ORDERED: ceFAZolin 1,000 MG (ANCEF) VIAL ONE (10:05)
[2016-11-28] MEDS ORDERED: NS (IVPB) 50 ML ONE (10:06)
[2016-11-28] MEDS ORDERED: FAMOTIDINE 20MG/2ML IV (PEPCID) IV ONE (10:15)
[2016-11-28] MEDS ORDERED: ONDANSETRON 4 MG/2 ML (SDV) Z0FRAN IV ONE (10:15)
[2016-11-28] MEDS ORDERED: SCOPOLAMINE 1.5 MG (TRANSDERM-SCOP) PATCH TOP ONE (10:15)
[2016-11-28] MEDS: LACTATED RINGERS 1,000 ML IV PRN ×2 (10:26→11:55)
[2016-11-28] MEDS ORDERED: BUPIVACAINE 0.5% 30 ML (SENSORCAINE) VIAL ONE (10:27)
[2016-11-28 10:35] VITALS: BP 132/68
[2016-11-28] MEDS ORDERED: ceFAZolin 1 GM/NS 50 ML IVPB IV ONE ×2 (11:00)
[2016-11-28] MEDS ORDERED: ONDANSETRON 4 MG/2 ML (SDV) Z0FRAN IVP PRN (11:45)
[2016-11-28] MEDS ORDERED: HYDROmorphone (DILAUDID) 2 MG/ML VIAL IVP PRN (11:45)
[2016-11-28] MEDS ORDERED: fentaNYL INJECTION 100 MCG/2 ML AMP IVP PRN (11:45)
[2016-11-28] MEDS ORDERED: LACTATED RINGERS 1,000 ML IV ONE (12:05)
[2016-11-28 13:15] VITALS: BP 175/89
--- NOTE | 2016-11-28 13:22 | Progress Note-Pre Operative ---
Pre-Operative Progress Note H&P Reviewed The H&P was reviewed, patient examined and no changes noted. Date Seen by Provider: Nov 15, 2016 Time Seen by Provider: 14:20 Date H&P Reviewed: Nov 28, 2016 Time H&P Reviewed: 10:42 Pre-Operative Diagnosis: Left axillary lymphadenopathy DREW SOLORIO MD Nov 28, 2016 1:22 pm
--- NOTE | 2016-11-28 13:24 | Operative Report ---
Operative Report Date of Procedure/Surgery Nov 28, 2016 Surgeon (s) DREW SOLORIO MD Email Marketing Processor (s): Not applicable Post-Operative Diagnosis Same Procedure Performed Excision biopsy of left axillary lymph node Description of Procedure Anesthesia Type: General Estimated blood loss (mL): Minimal Specimen(s) collected/removed Left axillary lymph node Description of the Procedure Indication for procedure: This lady has been evaluated for profound weight loss and unexplained axillary lymphadenopathy. She was therefore offered an excision biopsy of the left axillary lymph node in anticipation of establishing a definitive diagnosis. Informed consent was obtained after reviewing the operative details and complications of postoperative hematoma and wound infection. Description of procedure: She was placed supine on the operative table and general anesthesia induced. A gram of Ancef was administered intravenously as prophylaxis against wound infection. Sequential compression devices were placed around her legs, to minimize the risk of venous thrombosis. Left axilla was prepared and draped in the usual sterile manner. Pre-emptying analgesia was established using 0.5 percent Marcaine with epinephrine. A 4 cm incision was made over the axilla and an enlarged lymph node excised intact. Lymphatics were controlled with light ligaclips and the area irrigated with saline. The node was sent fresh for histologic analysis and flow cytometry. Incision was then closed using 3-0 Vicryl for the subcutaneous tissue and 4-0 Vicryl for skin, in a subcuticular fashion She tolerated the procedure well, was extubated in the operating room and taken to the recovery room in a stable condition. Findings of the Procedure See operative report Allergies and Home Medications Allergies Coded Allergies: clarithromycin (Verified Allergy, Unknown, 11/23/16) codeine (Verified Allergy, Unknown, 11/23/16) morphine (Unverified Allergy, Unknown, 11/23/16) Uncoded Allergies: STEROIDS (Allergy, Unknown, 08/13/08) Home Medications Acetaminophen/Diphenhydramine 1 Each Tablet, 2 EACH PO HS, (Reported) Activated Charcoal 260 Mg Capsule, 4 CAP PO DAILY, (Reported) Alpha Lipoic Acid 300 Mg Capsule, 300 MG PO DAILY, (Reported) Azithromycin 250 Mg Tablet, 500 MG PO DAILY, (Reported) Cetirizine HCl 10 Mg Tablet, 10 MG PO DAILY, (Reported) Cholecalciferol (Vitamin D3) 50,000 Unit Capsule, 50,000 UNIT PO WEEK, (Reported ) Cholestyramine (with Sugar) 4 Gm Powd.pack, 4 GM PO DAILY, (Reported) Cyanocobalamin 1,000 Mcg/Ml Inj, 1,000 MCG IJ MWF, (Reported) Fludrocortisone Acetate 0.1 Mg Tab, 0.1 MG PO MWF, (Reported) Glutathione 25 Gm Powder, 2.5 ML INJ MWF, (Reported) Glutathione 50 Gm Powder, 500 MG PO DAILY, (Reported) Lactobacillus Combo No.11 1 Each Cap.sprink, 2 EACH PO DAILY, (Reported) Loratadine 10 Mg Tablet, 30 MG PO DAILY, (Reported) Magnesium Glycinate 100 Mg Tablet, 120 MG PO DAILY, (Reported) Multivit with Calcium,Iron,Min 1 Each Tablet, 2 EACH PO DAILY, (Reported) Nystatin 500,000 Unit Tablet, 2 TAB PO DAILY, (Reported) Pot Bicarb/Sod Bicarb/Cit AC 1 Each Tablet.eff, 1 EACH PO DAILY, (Reported) Ranitidine HCl 150 Mg Tablet, 150 MG PO DAILY, (Reported) Simethicone 125 Mg Capsule, 125 MG PO TID, (Reported) Thyroid,Pork 30 Mg Tablet, 60 MG PO DAILY, (Reported) Tryptophan 500 Mg Capsule, 500 MG PO DAILY, (Reported) Ubidecarenone 10 Mg Capsule, 10 MG PO DAILY, (Reported) Zolpidem Tartrate 10 Mg Tablet, 10 MG PO HS, (Reported) [Lumbrokinase] , 20 MG PO DAILY, (Reported) DREW SOLORIO MD Nov 28, 2016 1:24 pm
[2016-11-28] MEDS ORDERED: TRAM50TA2 PO (13:26)
--- NOTE | 2016-11-28 13:27 | Discharge Inst-Simple/Standard ---
Discharge Inst-Standard Discharge Medications New, Converted or Re-Newed RX: RX on Chart Patient Instructions/Follow Up Plan of Care/Instructions/FU: Dressings off in 48 hours. Follow-up in 2 weeks. Activity as Tolerated: Yes Discharge Diet: No Restrictions DREW SOLORIO MD Nov 28, 2016 1:27 pm
[2016-11-28 13:45] VITALS: BP 178/84
[2016-11-28 14:15] VITALS: BP 150/73
[2016-11-28 15:00] VITALS: BP 150/73
[2016-11-28 15:15] VITALS: BP 150/73
== END 2016-11-28 15:15 | disposition home or self-care (01) ==
LOC: SDC 09:28
PROVIDERS: ATTEND Surgery
DX: R59.9 Enlarged lymph nodes, unspecified (principal); A69.20 Lyme disease, unspecified; G43.909 Migraine, unspecified, not intractable, without status migrainosus; Z79.899 Other long term (current) drug therapy

== ENCOUNTER → 2016-12-11 | Outpatient (CLI) | payer BC ==
[~2016-12-11] MED LIST changes: +TRAM50TA2 PO
--- NOTE | 2016-12-11 11:59 | Diagnostic Imaging Report ---
INDICATION: Abnormal screening mammogram. Comparison made to prior examination 09/23/2015, and 03/10/2010, as well as 03/23/2016. FINDINGS: There is a moderate amount of residual fibroglandular tissue bilaterally. There are scattered benign-type calcifications and vascular calcifications. There is no dominant mass, spiculated lesion, or suspicious calcifications identified. IMPRESSION: Category 2 benign. ACR BI-RADS Category 2: Benign findings. Result letter will be mailed to the patient. Note: At least 10% of breast cancer is not imaged by mammography. Dictated by: Dictated on workstation # [id number]
== END ==
LOC: RAD 07:38
PROVIDERS: ATTEND Family Medicine
DX: R92.8 Other abnormal and inconclusive findings on diagnostic imaging of breast (principal)
CPT/HCPCS: 77066

== ENCOUNTER → 2017-01-25 | Outpatient (CLI) | payer BC | LOC: RAD 09:26 | PROVIDERS: ATTEND Nurse Practitioner Family | DX: G40.909 Epilepsy, unspecified, not intractable, without status epilepticus (principal) | CPT/HCPCS: 95816 ==

== ENCOUNTER 2017-03-29 18:57 | Emergency (ER) | payer BC ==
[~2017-03-29] VITALS: Ht 162.6 cm; Wt 60.1 kg
--- OUTSIDE RECORDS SUMMARY | 2017-03-29 19:03 | XMS REPORT | Continuity of Care Document ---
Author Author [facility] Organization [facility] Address Unknown Phone Unavailable Allergies Active Description Code Type Severity Reaction Onset Reported/Identified Relationship to Patient Clinical Status Yes STEROIDS STEROIDS Unknown N/A 08/13/2008 Yes clarithromycin [id number] Drug Allergy Unknown N/A 11/23/2016 Yes codeine [id number] Drug Allergy Unknown N/A 11/23/2016 Yes morphine [id number] Drug Allergy Unknown N/A 11/23/2016 Medications There is no data. 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 02/18/2012 Ot 733.99 BONE CARTILAGE DIS NEC 02/18/2012 Ot 735.4 OTHER HAMMER TOE 06/16/2013 JANENE OBRIEN DO V05.8 ZOSTAVAX DX 07/25/2015 Ot 735.0 HALLUX VALGUS 07/25/2015 Ot 735.4 OTHER HAMMER TOE 07/25/2015 Ot V72.83 EXAM PRE- OPERATIVE NEC 07/25/2015 Ot V74.8 SCREEN- BACTERIAL DIS NEC 07/25/2015 Ot 733.99 BONE CARTILAGE DIS NEC 07/25/2015 Ot 735.4 OTHER HAMMER TOE 07/25/2015 Ot V72.84 EXAM PRE- OPERATIVE NOS 07/25/2015 JUAN DALTON MD Ot 724.02 SPINAL STENOSIS, LUMBAR REG, W/OUT NEURO 07/25/2015 JUAN DALTON MD Ot 959.19 OTH INJURY OF OTHER SITES OF TRUNK 07/25/2015 JUAN DALTON MD Ot E000.8 OTHER EXTERNAL CAUSE STATUS 07/25/2015 JUAN DALTON MD Ot E849.0 ACCIDENT IN HOME 07/25/2015 JUAN DALTON MD Ot E888.9 FALL NOS 07/28/2015 Ot 735.0 HALLUX VALGUS 07/28/2015 Ot 735.4 OTHER HAMMER TOE 07/28/2015 Ot V72.83 EXAM PRE- OPERATIVE NEC 07/28/2015 Ot V74.8 SCREEN- BACTERIAL DIS NEC 07/28/2015 Ot 733.99 BONE CARTILAGE DIS NEC 07/28/2015 Ot 735.4 OTHER HAMMER TOE 07/28/2015 Ot V72.84 EXAM PRE- OPERATIVE NOS 07/28/2015 JUAN DALTON MD Ot 724.02 SPINAL STENOSIS, LUMBAR REG, W/OUT NEURO 07/28/2015 JUAN DALTON MD Ot 959.19 OTH INJURY OF OTHER SITES OF TRUNK 07/28/2015 JUAN DALTON MD Ot E000.8 OTHER EXTERNAL CAUSE STATUS 07/28/2015 JUAN DALTON MD Ot E849.0 ACCIDENT IN HOME 07/28/2015 JUAN DALTON MD Ot E888.9 FALL NOS 09/19/2015 Ot 735.0 HALLUX VALGUS 09/19/2015 Ot 735.4 OTHER HAMMER TOE 09/19/2015 Ot V72.83 EXAM PRE- OPERATIVE NEC 09/19/2015 Ot V74.8 SCREEN- BACTERIAL DIS NEC 09/19/2015 Ot 733.99 BONE CARTILAGE DIS NEC 09/19/2015 Ot 735.4 OTHER HAMMER TOE 09/19/2015 Ot V72.84 EXAM PRE- OPERATIVE NOS 09/19/2015 JUAN DALTON MD Ot 724.02 SPINAL STENOSIS, LUMBAR REG, W/OUT NEURO 09/19/2015 JUAN DALTON MD Ot 959.19 OTH INJURY OF OTHER SITES OF TRUNK 09/19/2015 JUAN DALTON MD Ot E000.8 OTHER EXTERNAL CAUSE STATUS 09/19/2015 JUAN DALTON MD Ot E849.0 ACCIDENT IN HOME 09/19/2015 JUAN DALTON MD Ot E888.9 FALL NOS 09/22/2015 JUAN DALTON MD Ot Z82.49 FAMILY HX OF ISCHEM HEART DIS AND OTH DI 09/26/2015 JUAN DALTON MD R Ot R92.8 OTH ABN AND INCONCLUSIVE FINDINGS ON DX 09/26/2015 JUAN DALTON MD Ot Z12.31 ENCNTR SCREEN MAMMOGRAM FOR MALIGNANT NE 09/26/2015 JUAN DALTON MD R Ot Z82.49 FAMILY HX OF ISCHEM HEART DIS AND OTH DI 09/27/2015 JUAN DALTON MD R Ot Q23.1 CONGENITAL INSUFFICIENCY OF AORTIC VALVE 10/06/2015 JUAN DALTON MD R Ot R92.8 OTH ABN AND INCONCLUSIVE FINDINGS ON DX 10/13/2015 JUAN DALTON MD Ot R92.8 OTH ABN AND INCONCLUSIVE FINDINGS ON DX 10/13/2015 JUAN DALTON MD Ot Z12.31 ENCNTR SCREEN MAMMOGRAM FOR MALIGNANT NE 10/13/2015 JUAN DALTON MD R Ot Z82.49 FAMILY HX OF ISCHEM HEART DIS AND OTH DI 10/13/2015 JUAN DALTON MD Ot Q23.1 CONGENITAL INSUFFICIENCY OF AORTIC VALVE 10/13/2015 JUAN DALTON MD Ot Z82.49 FAMILY HX OF ISCHEM HEART DIS AND OTH DI 10/28/2015 JUAN DALTON MD R Ot R92.8 OTH ABN AND INCONCLUSIVE FINDINGS ON DX 11/24/2015 LYNDSEY VELÁZQUEZ, DREW Velazco Ot K21.9 GASTRO-ESOPHAGEAL REFLUX DISEASE WITHOUT 11/24/2015 DREW SOLORIO MD Ot Z01.818 ENCOUNTER FOR OTHER PREPROCEDURAL EXAMIN 11/28/2015 Ot 735.0 HALLUX VALGUS 11/28/2015 Ot 735.4 OTHER HAMMER TOE 11/28/2015 Ot V72.83 EXAM PRE- OPERATIVE NEC 11/28/2015 Ot V74.8 SCREEN- BACTERIAL DIS NEC 11/28/2015 Ot 733.99 BONE CARTILAGE DIS NEC 11/28/2015 Ot 735.4 OTHER HAMMER TOE 11/28/2015 Ot V72.84 EXAM PRE- OPERATIVE NOS 11/28/2015 JUAN DALTON MD Ot 724.02 SPINAL STENOSIS, LUMBAR REG, W/OUT NEURO 11/28/2015 JUAN DALTON MD Ot 959.19 OTH INJURY OF OTHER SITES OF TRUNK 11/28/2015 JUAN DALTON MD Ot E000.8 OTHER EXTERNAL CAUSE STATUS 11/28/2015 JUAN DALTON MD Ot E849.0 ACCIDENT IN HOME 11/28/2015 JUAN DALTON MD Ot E888.9 FALL NOS 11/28/2015 JUAN DALTON MD Ot R92.8 OTH ABN AND INCONCLUSIVE FINDINGS ON DX 11/28/2015 JUAN DALTON MD Ot Z12.31 ENCNTR SCREEN MAMMOGRAM FOR MALIGNANT NE 11/28/2015 JUAN DALTON MD Ot Z82.49 FAMILY HX OF ISCHEM HEART DIS AND OTH DI 11/28/2015 JUAN DALTON MD Ot Q23.1 CONGENITAL INSUFFICIENCY OF AORTIC VALVE 11/28/2015 JUAN DALTON MD Ot Z82.49 FAMILY HX OF ISCHEM HEART DIS AND OTH DI 11/28/2015 JUAN DALTON MD, Ot R92.8 OTH ABN AND INCONCLUSIVE FINDINGS ON DX 11/28/2015 LYNDSEY VELÁZQUEZ, DREW Velazco Ot K57.90 DVRTCLOS OF INTEST, PART UNSP, W/O PERF 11/28/2015 DREW SOLORIO MD Ot R63.4 ABNORMAL WEIGHT LOSS 11/28/2015 DREW SOLORIO MD Ot Z83.71 FAMILY HISTORY OF COLONIC POLYPS 11/29/2015 DREW SOLORIO MD Ot K57.90 DVRTCLOS OF INTEST, PART UNSP, W/O PERF 11/29/2015 DREW SOLORIO MD Ot R63.4 ABNORMAL WEIGHT LOSS 11/29/2015 DREW SOLORIO MD Ot Z83.71 FAMILY HISTORY OF COLONIC POLYPS 12/28/2015 Ot 735.0 HALLUX VALGUS 12/28/2015 Ot 735.4 OTHER HAMMER TOE 12/28/2015 Ot V72.83 EXAM PRE- OPERATIVE NEC 12/28/2015 Ot V74.8 SCREEN- BACTERIAL DIS NEC 12/28/2015 Ot 733.99 BONE CARTILAGE DIS NEC 12/28/2015 Ot 735.4 OTHER HAMMER TOE 12/28/2015 Ot V72.84 EXAM PRE- OPERATIVE NOS 12/28/2015 JUAN DALTON MD Ot 724.02 SPINAL STENOSIS, LUMBAR REG, W/OUT NEURO 12/28/2015 JUAN DALTON MD R Ot 959.19 OTH INJURY OF OTHER SITES OF TRUNK 12/28/2015 JUAN DALTON MD Ot E000.8 OTHER EXTERNAL CAUSE STATUS 12/28/2015 JUAN DALTON MD Ot E849.0 ACCIDENT IN HOME 12/28/2015 JUAN DALTON MD Ot E888.9 FALL NOS 12/28/2015 JUAN DALTON MD R Ot R92.8 OTH ABN AND INCONCLUSIVE FINDINGS ON DX 12/28/2015 JUAN DALTON MD Ot Z12.31 ENCNTR SCREEN MAMMOGRAM FOR MALIGNANT NE 12/28/2015 JUAN DALTON MD Ot Z82.49 FAMILY HX OF ISCHEM HEART DIS AND OTH DI 12/28/2015 JUAN DALTON MD Ot Q23.1 CONGENITAL INSUFFICIENCY OF AORTIC VALVE 12/28/2015 JUAN DALTON MD Ot Z82.49 FAMILY HX OF ISCHEM HEART DIS AND OTH DI 12/28/2015 JUAN DALTON MD Ot R92.8 OTH ABN AND INCONCLUSIVE FINDINGS ON DX 12/29/2015 JUAN DALTON MD R Ot R61 GENERALIZED HYPERHIDROSIS 12/29/2015 JUAN DALTON MD R Ot R63.4 ABNORMAL WEIGHT LOSS 12/29/2015 JUAN DALTON MD R Ot R61 GENERALIZED HYPERHIDROSIS 12/29/2015 JUAN DALTON MD R Ot R63.4 ABNORMAL WEIGHT LOSS 12/30/2015 JUAN DALTON MD R Ot K57.30 DVRTCLOS OF LG INT W/O PERFORATION OR AB 12/30/2015 JUAN DALTON MD R Ot M48.06 SPINAL STENOSIS, LUMBAR REGION 12/30/2015 JUAN DALTON MD Ot R59.0 LOCALIZED ENLARGED LYMPH NODES 12/30/2015 JUAN DALTON MD R Ot R61 GENERALIZED HYPERHIDROSIS 01/10/2016 JUAN DALTON MD R Ot R61 GENERALIZED HYPERHIDROSIS 01/10/2016 JUAN DALTON MD R Ot R63.4 ABNORMAL WEIGHT LOSS 01/10/2016 JUAN DALTON MD R Ot K57.30 DVRTCLOS OF LG INT W/O PERFORATION OR AB 01/10/2016 JUAN DALTON MD R Ot M48.06 SPINAL STENOSIS, LUMBAR REGION 01/10/2016 JUAN DALTON MD R Ot R59.0 LOCALIZED ENLARGED LYMPH NODES 01/10/2016 JUAN DALTON MD R Ot R61 GENERALIZED HYPERHIDROSIS 01/13/2016 JUAN DALTON MD R Ot R51 HEADACHE 01/13/2016 ARNOLD DALTON MDYD R Ot R53.1 WEAKNESS 01/13/2016 JUAN DALTON MD R Ot R53.83 OTHER FATIGUE 01/18/2016 JUAN DALTON MD R Ot R51 HEADACHE 01/18/2016 JUAN DALTON MD R Ot R53.1 WEAKNESS 01/18/2016 JUAN DALTON MD R Ot R53.83 OTHER FATIGUE 03/07/2016 JUAN DALTON MD R Ot R11.2 NAUSEA WITH VOMITING, UNSPECIFIED 03/07/2016 JUAN DALTON MD R Ot R14.0 ABDOMINAL DISTENSION (GASEOUS) 03/07/2016 JUAN DALTON MD R Ot R19.7 DIARRHEA, UNSPECIFIED 03/07/2016 JUAN DALTON MD R Ot R63.0 ANOREXIA 03/21/2016 JUAN DALTON MD R Ot R11.2 NAUSEA WITH VOMITING, UNSPECIFIED 03/21/2016 JUAN DALTON MD R Ot R14.0 ABDOMINAL DISTENSION (GASEOUS) 03/21/2016 JUAN DALTON MD R Ot R19.7 DIARRHEA, UNSPECIFIED 03/21/2016 JUAN DALTON MD R Ot R63.0 ANOREXIA 03/23/2016 Ot 735.0 HALLUX VALGUS 03/23/2016 Ot 735.4 OTHER HAMMER TOE 03/23/2016 Ot V72.83 EXAM PRE- OPERATIVE NEC 03/23/2016 Ot V74.8 SCREEN- BACTERIAL DIS NEC 03/23/2016 Ot 733.99 BONE CARTILAGE DIS NEC 03/23/2016 Ot 735.4 OTHER HAMMER TOE 03/23/2016 Ot V72.84 EXAM PRE- OPERATIVE NOS 03/23/2016 JUAN DALTON MD R Ot 724.02 SPINAL STENOSIS, LUMBAR REG, W/OUT NEURO 03/23/2016 JUAN DALTON MD R Ot 959.19 OTH INJURY OF OTHER SITES OF TRUNK 03/23/2016 JUAN DALTON MD R Ot E000.8 OTHER EXTERNAL CAUSE STATUS 03/23/2016 JUAN DALTON MD R Ot E849.0 ACCIDENT IN HOME 03/23/2016 JUAN DALTON MD Ot E888.9 FALL NOS 03/23/2016 JUAN DALTON MD R Ot R92.8 OTH ABN AND INCONCLUSIVE FINDINGS ON DX 03/23/2016 JUAN DALTON MD R Ot Z12.31 ENCNTR SCREEN MAMMOGRAM FOR MALIGNANT NE 03/23/2016 JUAN DALTON MD R Ot Z82.49 FAMILY HX OF ISCHEM HEART DIS AND OTH DI 03/23/2016 JUAN DALTON MD R Ot Q23.1 CONGENITAL INSUFFICIENCY OF AORTIC VALVE 03/23/2016 JUAN DALTON MD R Ot Z82.49 FAMILY HX OF ISCHEM HEART DIS AND OTH DI 03/23/2016 JUAN DALTON MD R Ot R92.8 OTH ABN AND INCONCLUSIVE FINDINGS ON DX 03/23/2016 JUAN DALTON MD R Ot R61 GENERALIZED HYPERHIDROSIS 03/23/2016 JUAN DALTON MD R Ot R63.4 ABNORMAL WEIGHT LOSS 03/23/2016 JUAN DALTON MD R Ot K57.30 DVRTCLOS OF LG INT W/O PERFORATION OR AB 03/23/2016 JUAN DALTON MD R Ot M48.06 SPINAL STENOSIS, LUMBAR REGION 03/23/2016 JUAN DALTON MD R Ot R59.0 LOCALIZED ENLARGED LYMPH NODES 03/23/2016 JUAN DALTON MD R Ot R61 GENERALIZED HYPERHIDROSIS 03/23/2016 JUAN DALTON MD R Ot R51 HEADACHE 03/23/2016 JUAN DALTON MD R Ot R53.1 WEAKNESS 03/23/2016 JUAN DALTON MD R Ot R53.83 OTHER FATIGUE 03/23/2016 JUAN DALTON MD R Ot R11.2 NAUSEA WITH VOMITING, UNSPECIFIED 03/23/2016 JUAN DALTON MD R Ot R14.0 ABDOMINAL DISTENSION (GASEOUS) 03/23/2016 JUAN DALTON MD R Ot R19.7 DIARRHEA, UNSPECIFIED 03/23/2016 JUAN DALTON MD R Ot R63.0 ANOREXIA 03/26/2016 JUAN DALTON MD R Ot R53.83 OTHER FATIGUE 03/26/2016 JUAN DALTON MD R Ot R92.8 OTH ABN AND INCONCLUSIVE FINDINGS ON DX 03/26/2016 JUAN DALTON MD R Ot Z20.828 CONTACT W AND EXPOSURE TO OTH VIRAL COMM 03/26/2016 JUAN DALTON MD R Ot Z77.011 CONTACT WITH AND (SUSPECTED) EXPOSURE TO 03/26/2016 JUAN DALTON MD R Ot R53.83 OTHER FATIGUE 03/26/2016 JUAN DALTON MD R Ot R92.8 OTH ABN AND INCONCLUSIVE FINDINGS ON DX 03/26/2016 JUAN DALTON MD R Ot Z20.828 CONTACT W AND EXPOSURE TO OTH VIRAL COMM 03/26/2016 JUAN DALTON MD R Ot Z77.011 CONTACT WITH AND (SUSPECTED) EXPOSURE TO 04/04/2016 JUAN DALTON MD R Ot R53.83 OTHER FATIGUE 04/04/2016 JUAN DALTON MD Ot R92.8 OTH ABN AND INCONCLUSIVE FINDINGS ON DX 04/04/2016 JUAN DALTON MD R Ot Z20.828 CONTACT W AND EXPOSURE TO OTH VIRAL COMM 04/04/2016 JUAN DALTON MD R Ot Z77.011 CONTACT WITH AND (SUSPECTED) EXPOSURE TO 05/11/2016 ADELAIDA SANTOS DO Ot H53.9 UNSPECIFIED VISUAL DISTURBANCE 05/11/2016 ADELAIDA SANTOS DO Ot R50.9 FEVER, UNSPECIFIED 05/11/2016 ADELAIDA SANTOS DO Ot R51 HEADACHE 05/11/2016 ADELAIDA SANTOS DO Ot Z20.828 CONTACT W AND EXPOSURE TO OTH VIRAL COMM 05/15/2016 ЕЛЕНА WEBSTER DIRECTOR OF SCIENCE Ot K58.9 IRRITABLE BOWEL SYNDROME WITHOUT DIARRHE 05/15/2016 ЕЛЕНА WEBSTER DIRECTOR OF SCIENCE Ot R63.4 ABNORMAL WEIGHT LOSS 05/15/2016 ADELAIDA SANTOS DO Ot H53.9 UNSPECIFIED VISUAL DISTURBANCE 05/15/2016 [facility] DO, ADELAIDA Velazco Ot R50.9 FEVER, UNSPECIFIED 05/15/2016 [facility] DO, ADELAIDA M Ot R51 HEADACHE 05/15/2016 [facility], ADELAIDA Velazco Ot Z20.828 CONTACT W AND EXPOSURE TO OTH VIRAL COMM 05/15/2016 [facility] DO ADELAIDA M Ot H53.9 UNSPECIFIED VISUAL DISTURBANCE 05/15/2016 [facility] DO ADELAIDA M Ot R50.9 FEVER, UNSPECIFIED 05/15/2016 [facility] ADELAIDA M Ot R51 HEADACHE 05/15/2016 [facility], ADELAIDA Velazco Ot Z20.828 CONTACT W AND EXPOSURE TO OTH VIRAL COMM 05/15/2016 ЕЛЕНА WEBSTER DIRECTOR OF SCIENCE Ot K58.9 IRRITABLE BOWEL SYNDROME WITHOUT DIARRHE 05/15/2016 ЕЛЕНА WEBSTER DIRECTOR OF SCIENCE Ot R63.4 ABNORMAL WEIGHT LOSS 05/21/2016 [facility] ADELAIDA Velazco Ot H53.9 UNSPECIFIED VISUAL DISTURBANCE 05/21/2016 [facility] ADELAIDA Velazco Ot R50.9 FEVER, UNSPECIFIED 05/21/2016 [facility] ADELAIDA M Ot R51 HEADACHE 05/21/2016 [facility] ADELAIDA Velazco Ot Z20.828 CONTACT W AND EXPOSURE TO OTH VIRAL COMM 05/28/2016 [facility] DO ADELAIDA M Ot H53.9 UNSPECIFIED VISUAL DISTURBANCE 05/28/2016 [facility] DO ADELAIDA M Ot R50.9 FEVER, UNSPECIFIED 05/28/2016 [facility] ADELAIDA M Ot R51 HEADACHE 05/28/2016 [facility], ADELAIDA Velazco Ot Z20.828 CONTACT W AND EXPOSURE TO OTH VIRAL COMM 05/31/2016 [facility] DO ADELAIDA M Ot H53.9 UNSPECIFIED VISUAL DISTURBANCE 05/31/2016 [facility] DO ADELAIDA M Ot R50.9 FEVER, UNSPECIFIED 05/31/2016 [facility] DO, ADELAIDA M Ot R51 HEADACHE 05/31/2016 [facility] ADELAIDA Velazco Ot Z20.828 CONTACT W AND EXPOSURE TO OTH VIRAL COMM 06/07/2016 DARREL WEBSTER DO Ot I65.23 OCCLUSION AND STENOSIS OF BILATERAL JAY 06/07/2016 DARREL WEBSTER DO Ot I65.23 OCCLUSION AND STENOSIS OF BILATERAL AJY 06/11/2016 DARINЕЛЕНА DIRECTOR OF SCIENCE Ot K58.9 IRRITABLE BOWEL SYNDROME WITHOUT DIARRHE 06/11/2016 JOSE CARLOS WEBSTERIA Arielle CAMACHOP Ot R63.4 ABNORMAL WEIGHT LOSS 06/13/2016 DARREL WEBSTER DO Ot I65.23 OCCLUSION AND STENOSIS OF BILATERAL JAY 06/21/2016 DARINЕЛЕНА DIRECTOR OF SCIENCE Ot K58.9 IRRITABLE BOWEL SYNDROME WITHOUT DIARRHE 06/21/2016 ЕЛЕНА WEBSTER DIRECTOR OF SCIENCE Ot R63.4 ABNORMAL WEIGHT LOSS 06/25/2016 MICHAEL DO BROOKE Nicole Ot L50.8 OTHER URTICARIA 07/11/2016 Ot 735.0 HALLUX VALGUS 07/11/2016 Ot 735.4 OTHER HAMMER TOE 07/11/2016 Ot V72.83 EXAM PRE- OPERATIVE NEC 07/11/2016 Ot V74.8 SCREEN- BACTERIAL DIS NEC 07/11/2016 Ot 733.99 BONE CARTILAGE DIS NEC 07/11/2016 Ot 735.4 OTHER HAMMER TOE 07/11/2016 Ot V72.84 EXAM PRE- OPERATIVE NOS 07/11/2016 JUAN DALTON MD Ot 724.02 SPINAL STENOSIS, LUMBAR REG, W/OUT NEURO 07/11/2016 JUAN DALTON MD Ot 959.19 OTH INJURY OF OTHER SITES OF TRUNK 07/11/2016 JUAN DALTON MD Ot E000.8 OTHER EXTERNAL CAUSE STATUS 07/11/2016 JUAN DALTON MD Ot E849.0 ACCIDENT IN HOME 07/11/2016 JUAN DALTON MD, Ot E888.9 FALL NOS 07/11/2016 UJAN DALTON MD, Ot R92.8 OTH ABN AND INCONCLUSIVE FINDINGS ON DX 07/11/2016 JUAN DALTON MD, Ot Z12.31 ENCNTR SCREEN MAMMOGRAM FOR MALIGNANT NE 07/11/2016 JUAN DALTON MD, Ot Z82.49 FAMILY HX OF ISCHEM HEART DIS AND OTH DI 07/11/2016 JUAN DALTON MD Ot Q23.1 CONGENITAL INSUFFICIENCY OF AORTIC VALVE 07/11/2016 JUAN DALTON MD Ot Z82.49 FAMILY HX OF ISCHEM HEART DIS AND OTH DI 07/11/2016 JUAN DALTON MD, Ot R92.8 OTH ABN AND INCONCLUSIVE FINDINGS ON DX 07/11/2016 JUAN DALTON MD Ot R61 GENERALIZED HYPERHIDROSIS 07/11/2016 JUAN DALTON MD Ot R63.4 ABNORMAL WEIGHT LOSS 07/11/2016 JUAN DALTON MD Ot K57.30 DVRTCLOS OF LG INT W/O PERFORATION OR AB 07/11/2016 JUAN DALTON MD, Ot M48.06 SPINAL STENOSIS, LUMBAR REGION 07/11/2016 JUAN DALTON MD Ot R59.0 LOCALIZED ENLARGED LYMPH NODES 07/11/2016 JUAN DALTON MD Ot R61 GENERALIZED HYPERHIDROSIS 07/11/2016 JUAN DALTON MD Ot R51 HEADACHE 07/11/2016 JUAN DALTON MD Ot R53.1 WEAKNESS 07/11/2016 JUAN DALTON MD Ot R53.83 OTHER FATIGUE 07/11/2016 JUAN DALTON MD Ot R11.2 NAUSEA WITH VOMITING, UNSPECIFIED 07/11/2016 JUAN DALTON MD Ot R14.0 ABDOMINAL DISTENSION (GASEOUS) 07/11/2016 JUAN DALTON MD Ot R19.7 DIARRHEA, UNSPECIFIED 07/11/2016 JUAN DALTON MD Ot R63.0 ANOREXIA 07/11/2016 JUAN DALTON MD Ot R53.83 OTHER FATIGUE 07/11/2016 JUAN DALTON MD Ot R92.8 OTH ABN AND INCONCLUSIVE FINDINGS ON DX 07/11/2016 JUAN DALTON MD, Ot Z20.828 CONTACT W AND EXPOSURE TO OTH VIRAL COMM 07/11/2016 JUAN DALTON MD, Ot Z77.011 CONTACT WITH AND (SUSPECTED) EXPOSURE TO 07/11/2016 ADELAIDA SANTOS DO Ot H53.9 UNSPECIFIED VISUAL DISTURBANCE 07/11/2016 ADELAIDA SANTOS DO Ot R50.9 FEVER, UNSPECIFIED 07/11/2016 ADELAIDA SANTOS DO Ot R51 HEADACHE 07/11/2016 TAVOADELAIDA ADEN DO Ot Z20.828 CONTACT W AND EXPOSURE TO OTH VIRAL COMM 07/11/2016 ЕЛЕНА WEBSTER DIRECTOR OF SCIENCE Ot K58.9 IRRITABLE BOWEL SYNDROME WITHOUT DIARRHE 07/11/2016 ЕЛЕНА WEBSTER DIRECTOR OF SCIENCE Ot R63.4 ABNORMAL WEIGHT LOSS 07/11/2016 DARREL WEBSTER DO Ot I65.23 OCCLUSION AND STENOSIS OF BILATERAL JAY 07/11/2016 MICHAEL ARANA BROOKE A Ot L50.8 OTHER URTICARIA 07/11/2016 JOSE CARLOS WEBSTERIA L DIRECTOR OF SCIENCE Ot I25.10 ATHSCL HEART DISEASE OF [place] CORONARY 07/11/2016 JOSE CARLOS WEBSTERIA L DIRECTOR OF SCIENCE Ot R07.9 CHEST PAIN, UNSPECIFIED 07/23/2016 POLA RODRIGUEZ DOINA A Ot L50.8 OTHER URTICARIA 07/23/2016 JOSE CARLOS WEBSTERIA L DIRECTOR OF SCIENCE Ot I25.10 ATHSCL HEART DISEASE OF [place] CORONARY 07/23/2016 JOSE CARLOS WEBSTERIA L DIRECTOR OF SCIENCE Ot R07.9 CHEST PAIN, UNSPECIFIED 08/12/2016 JOSE CARLOS WEBSTERIA L DIRECTOR OF SCIENCE Ot K58.9 IRRITABLE BOWEL SYNDROME WITHOUT DIARRHE 08/12/2016 JOSE CARLOS WEBSTERIA L DIRECTOR OF SCIENCE Ot R63.4 ABNORMAL WEIGHT LOSS 09/20/2016 POLA RODRIGUEZ DOINA A Ot L50.8 OTHER URTICARIA 11/23/2016 JOSE CARLOS WEBSTERIA L DIRECTOR OF SCIENCE Ot K58.9 IRRITABLE BOWEL SYNDROME WITHOUT DIARRHE 11/23/2016 KANE WEBSTERRICIA L DIRECTOR OF SCIENCE Ot R63.4 ABNORMAL WEIGHT LOSS 11/23/2016 POLA RODRIGUEZ DOINA A Ot L50.8 OTHER URTICARIA 11/28/2016 LYNDSEY VELÁZQUEZ, DREW Velazco Ot A69.20 LYME DISEASE, UNSPECIFIED 11/28/2016 LYNDSEY VELÁZQUEZ, DREW Velazco Ot G43.909 MIGRAINE, UNSP, NOT INTRACTABLE, WITHOUT 11/28/2016 LYNDSEY VELÁZQUEZ, DREW Velazco Ot R59.9 ENLARGED LYMPH NODES, UNSPECIFIED 11/28/2016 LYNDSEY VELÁZQUEZ, DREW Velazco Ot Z79.899 OTHER NURSING HOME (CURRENT) DRUG THERAPY 11/29/2016 LYNDSEY VELÁZQUEZ, DREW Velazco Ot R59.0 LOCALIZED ENLARGED LYMPH NODES 11/29/2016 LYNDSEY VELÁZQUEZ, DREW Velazco Ot Z01.818 ENCOUNTER FOR OTHER PREPROCEDURAL EXAMIN 11/30/2016 LYNDSEY VELÁZQUEZ, DREW Velazco Ot A69.20 LYME DISEASE, UNSPECIFIED 11/30/2016 LYNDSEY VELÁZQUEZ, DREW Velazco Ot G43.909 MIGRAINE, UNSP, NOT INTRACTABLE, WITHOUT 11/30/2016 LYNDSEY VELÁZQUEZ, DREW Velazco Ot R59.9 ENLARGED LYMPH NODES, UNSPECIFIED 11/30/2016 LYNDSEY VELÁZQUEZ, DREW M Ot Z79.899 OTHER NURSING HOME (CURRENT) DRUG THERAPY 12/04/2016 LYNDSEY VELÁZQUEZ, DREW Velazco Ot A69.20 LYME DISEASE, UNSPECIFIED 12/04/2016 LYNDSEY VELÁZQUEZ, DREW Velazco Ot G43.909 MIGRAINE, UNSP, NOT INTRACTABLE, WITHOUT 12/04/2016 LYNDSEY VELÁZQUEZ, DREW Velazco Ot R59.9 ENLARGED LYMPH NODES, UNSPECIFIED 12/04/2016 LYNDSEY VELÁZQUEZ, DREW Velazco Ot Z79.899 OTHER NURSING HOME (CURRENT) DRUG THERAPY 12/05/2016 LYNDSEY VELÁZQUEZ, DREW Velazco Ot A69.20 LYME DISEASE, UNSPECIFIED 12/05/2016 LYNDSEY VELÁZQUEZ, DREW Velazco Ot G43.909 MIGRAINE, UNSP, NOT INTRACTABLE, WITHOUT 12/05/2016 LYNDSEY VELÁZQUEZ, DREW Velazco Ot R59.9 ENLARGED LYMPH NODES, UNSPECIFIED 12/05/2016 LYNDSEY VELÁZQUEZ, DREW Velazco Ot Z79.899 OTHER NURSING HOME (CURRENT) DRUG THERAPY 12/06/2016 LYNDSEY VELÁZQUEZ, DREW Velazco Ot 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 Results Test Result Range Erythrocyte sedimentation rate by westergren method - 12/28/15 11:47 Erythrocyte sedimentation rate by westergren method 6 mm 0-30 Ehrlichia chaffeensis antibody panel (IgG and IgM) - 12/28/15 11:47 Serum Ehrlichia chaffeensis IgG antibody detection <1:16 <1:16 Serum Ehrlichia chaffeensis IgM antibody detection <1:10 <1:10 Serum Borrelia species antibody assay (units/volume) - 12/28/15 11:47 Borrelia burgdorferi (Lyme disease) antibody 0.21 0.00- 0.90 Serum or plasma estradiol (E2) measurement (mass/volume) - 12/28/15 11:47 Serum or plasma estrogen measurement (mass/volume) 81.4 pg/mL [facility] [id number] - 01/09/16 17:30 Serum or plasma urea nitrogen measurement (mass/volume) 12 mg/dL 7-18 Serum or plasma creatinine measurement (mass/volume) 1.05 mg/dL 0.60-1.30 Serum or plasma urea nitrogen/creatinine mass ratio 11 NRG Serum or plasma creatinine measurement with calculation of estimated glomerular filtration rate 53 NRG Serum gliadin antibody assay (units/volume) - 01/09/16 17:30 Serum gliadin IgA antibody assay (units/volume) 3 % 0-19 Gliadin IgG antibody assay 2 % 0-19 Lead measurement (mass/volume) - 03/23/16 09:22 Specimen type Venous G Blood lead detection 3.1 <=10.0 Rickettsia rickettsii IgG and IgM antibody assay - 03/23/16 09:22 Serum Rickettsia rickettsii IgG antibody assay (units/volume) <1:16 <1:16 [place] spotted fever panel <1:10 <1:10 Complete blood count (CBC) with automated white blood cell (WBC) differential - 05/10/16 10:00 Blood leukocytes automated count (number/volume) 3.0 10*3/uL 4.3-11.0 Blood erythrocytes automated count (number/volume) 4.54 10*6/uL 4.35-5.85 Venous blood hemoglobin measurement (mass/volume) 13.3 g/dL 11.5-16.0 Blood hematocrit (volume fraction) 40 % 35-52 Automated erythrocyte mean corpuscular volume 87 [foz_us] 80-99 Automated erythrocyte mean corpuscular hemoglobin (mass per erythrocyte) 29 pg 25-34 Automated erythrocyte mean corpuscular hemoglobin concentration measurement ( mass/volume) 34 g/dL 32-36 Automated erythrocyte distribution width ratio 13.0 % 10.0-14.5 Automated blood platelet count (count/volume) 201 10*3/uL 130-400 Automated blood platelet mean volume measurement 9.7 [foz_us] 7.4-10.4 Automated blood neutrophils/100 leukocytes 47 % 42-75 Automated blood lymphocytes/100 leukocytes 40 % 12-44 Blood monocytes/100 leukocytes 11 % 0-12 Automated blood eosinophils/100 leukocytes 2 % 0-10 Automated blood basophils/100 leukocytes 0 % 0-10 Blood neutrophils automated count (number/volume) 1.4 10*3 1.8-7.8 Blood lymphocytes automated count (number/volume) 1.2 10*3 1.0-4.0 Blood monocytes automated count (number/volume) 0.3 10*3 0.0-1.0 Automated eosinophil count 0.1 10*3/uL 0.0-0.3 Automated blood basophil count (count/volume) 0.0 10*3/uL 0.0-0.1 Cerebrospinal fluid cell count - 05/10/16 10:43 Cerebrospinal fluid appearance description CLEAR NRG Cerebrospinal fluid color identification COLORLESS NRG Cerebrospinal fluid leukocytes count (number/volume) 0 % 0-5 Cerebrospinal fluid erythrocytes count (number/volume) 0 % 0-0 Manual cerebrospinal fluid lymphocytes/100 leukocytes TNP NRG Manual cerebrospinal fluid mononuclear cells/100 leukocytes TNP NRG Manual cerebrospinal fluid polymorphonuclear cells/100 leukocytes TNP NRG Cerebrospinal fluid cell count on specimen from last tube collected 3 NRG Cerebrospinal fluid glucose measurement (mass/volume) - 05/10/16 10:43 Cerebrospinal fluid glucose measurement (mass/volume) 57 mg/dL 50-80 Cerebrospinal fluid protein measurement (mass/volume) - 05/10/16 10:43 Cerebrospinal fluid protein measurement (mass/volume) 19 mg/dL 15-40 Gram stain microscopy - 05/10/16 10:43 GRAM STAIN RESULT NO WBC'S OR BACTERIA OBSERVED NRG Bacterial cerebrospinal fluid culture - 05/10/16 10:43 Bacterial cerebrospinal fluid culture NG NRG Cerebrospinal fluid VDRL titer - 05/10/16 10:43 Cerebrospinal fluid VDRL titer Non Reactive NON REACTIV * Reference lab test name - 05/10/16 10:43 * Reference lab test results LYME PCR CSF NRG Mycobacterium species detection by organism specific culture - 05/10/16 10:43 AFB CULTURE NEGATIVE NRG DATE FINAL AFB CULTURE 07/03/16 08:49 NRG * Reference lab test name - 05/10/16 10:43 * Reference lab test results Lymph Choriomen NRG Virus identification by culture - 05/10/16 10:43 DATE OF REF LAB REPORT 05/23/16 11:40 NRG Virus identification by culture FOOTNOTE NRG Stool occult blood screen - 05/14/16 15:00 Stool gastrointestinal hemoglobin detection NEGATIVE NEGATIVE Stool bacteria identification by culture - 05/14/16 15:00 Stool bacteria identification by culture N2 NRG Ova and parasites - 05/14/16 15:00 DATE OF REF LAB REPORT 05/18/2016 NRG OTP NEGATIVE RESULT PARASITES NOT FOUND NRG Ova and parasites - 05/15/16 11:00 DATE OF REF LAB REPORT 05/18/2016 NRG OTP NEGATIVE RESULT PARASITES NOT FOUND NRG Ova and parasites - 05/17/16 07:15 DATE OF REF LAB REPORT 05/22/16 NRG OTP NEGATIVE RESULT PARASITES NOT FOUND NRG 24 hour urine metanephrine measurement (mass/volume) - 06/22/16 11:30 [id number] 55 ug/L NRG Urine collection time duration 24 h NRG Urine volume measurement 3600 mL NRG Metanephrine and normetanephrine [interpretation] in serum or plasma narrative SEE FOOTNOTE NRG 24 hour urine normetanephrine/creatinine mass ratio 190 ug/g{Cre} 0-400 Urine metanephrine measurement (mass/volume) 86 % 39-143 Urine normetanephrine measurement (mass/volume) 198 % 109 -393 Timed urine creatinine measurement(moles/volume) 1044 mg 500-1400 Urine metanephrine/creatinine mass ratio 29 mg/dL NRG Urine metanephrines/creatinine mass ratio 83 ug/g{Cre} 0- 300 * Reference lab test name - 06/22/16 11:30 * Reference lab test results U N-METHYLH LVL NRG Methicillin resistant Staphylococcus aureus (MRSA) screening culture - 13:00 Methicillin resistant Staphylococcus aureus (MRSA) screening culture NEG NRG Encounters ACCT No. Visit Date/Time Discharge Status Pt. Type Provider Facility Loc./Unit Complaint [id number] 01/25/2017 09:26:00 01/25/2017 23:59:59 CLS Outpatient ЕЛЕНА WEBSTER [facility] RAD SEIZURE ACTIVITY [id number] 12/11/2016 07:38:00 12/11/2016 23:59:59 CLS Outpatient SHA VELÁZQUEZ, JUAN R [facility] RAD R92.8 ABNORMAL MAMMO [id number] 11/28/2016 09:28:00 11/28/2016 15:15:00 DIS Outpatient DREW SOLORIO MD [facility] SDC LEFT AXILLARY LYMPHADENOPATHY [id number] 11/23/2016 12:05:00 11/26/2016 10:49:00 DIS Outpatient DREW SOLORIO MD [facility] PREOP LEFT AXILLARY LYMPHADENOPATHY [id number] 09/21/2016 00:12:00 09/21/2016 23:59:59 CLS Preadmit BROOKE RODRIGUEZ DO [facility] LAB CHRONIC URTICARIA [id number] 06/22/2016 11:25:00 09/20/2016 00:01:00 DIS Outpatient BROOKE RODRIGUEZ DO [facility] LAB CHRONIC URTICARIA [id number] 08/13/2016 00:14:00 08/13/2016 23:59:59 CLS Preadmit ЕЛЕНА WEBSTERP [facility] LAB IBS-WEIGHT LOSS [id number] 05/17/2016 14:35:00 08/12/2016 00:01:00 DIS Outpatient ЕЛЕНА WEBSTER DIRECTOR OF SCIENCE [facility] LAB IBS-WEIGHT LOSS [id number] 07/06/2016 07:10:00 07/06/2016 23:59:59 CLS Outpatient ЕЛЕНА WEBSTER DIRECTOR [employer] SCIENCE [facility] CARD CAD,CHEST PAIN [id number] 06/01/2016 11:17:00 06/01/2016 23:59:59 CLS Outpatient DARIN DARREL Reeves [facility] RAD DIZZINESS [id number] 05/10/2016 09:25:00 05/10/2016 23:59:59 CLS Outpatient TOM ARANA ADELAIDA Velazco [facility] HEADACHES;TICK BITE [id number] 03/23/2016 08:43:00 03/23/2016 23:59:59 CLS Outpatient JUAN DALTON MD [facility] RAD 6 MONTH FOLLOW UP, FATIGUE NO ENERGY [id number] 03/06/2016 08:36:00 03/06/2016 23:59:59 CLS Outpatient JUAN DALTON MD [facility] CARD BLOATING,DIARRHEA, NAUSEA [id number] 01/09/2016 16:58:00 01/09/2016 23:59:59 CLS Outpatient JUAN DALTON MD [facility] RAD BRAIN FOG [id number] 12/29/2015 08:45:00 12/29/2015 23:59:59 CLS Outpatient JUAN DALTON MD [facility] RAD WEIGHT LOSS, DIAPHARIESIS [id number] 12/28/2015 11:28:00 12/28/2015 23:59:59 CLS Outpatient JUAN DALTON MD [facility] LAB WEIGHT LOSS, DIAPHARISIS [id number] 11/28/2015 09:33:00 11/28/2015 12:30:00 DIS Outpatient DREW SOLORIO MD [facility] CHANGE IN BOWEL HABITS; GERD [id number] 11/24/2015 05:56:00 11/24/2015 14:15:00 DIS Outpatient DREW SOLORIO MD [facility] PREOP CHANGE IN BOWEL HABITS; GERD [id number] 10/05/2015 14:04:00 10/05/2015 23:59:59 CLS Outpatient JUAN DALTON MD [facility] RAD ASYMMETRY PROJECTING ABOVE NIPPLE [id number] 09/26/2015 14:27:00 09/26/2015 23:59:59 CLS Outpatient JUAN DALTON MD [facility] CARD BICUSPID VALVE-FAMILIAL [id number] 09/23/2015 07:44:00 09/23/2015 23:59:59 CLS Outpatient JUAN DALTON MD [facility] RAD SCREENING, STRONG FAMILY AORTIC DIS [id number] 09/19/2015 14:48:00 09/19/2015 23:59:59 CLS Outpatient JUAN DALTON MD [facility] LAB BICUSPID VALVE FAMILIAL [id number] 01/29/2013 11:21:00 01/29/2013 23:59:59 CLS Outpatient JUAN DALTON MD [facility] RAD FALL W/CONT PAIN [id number] 02/18/2012 08:28:00 Document Registration [id number] 02/14/2012 12:53:00 Document Registration [id number] 05/11/2011 05:34:00 Document Registration [id number] 05/04/2011 09:19:00 Document Registration [id number] 06/16/2013 14:42:00 06/16/2013 23:59:59 CLS Outpatient JANENE OBRIEN DO
--- OUTSIDE RECORDS SUMMARY | 2017-03-29 19:03 | XMS REPORT | Clinical Summary ---
Author Author [facility] Organization [facility] Address Unknown Phone Unavailable Care Team Providers Care Tax Compliance Representative Name Role Phone PCP Unavailable Source Comments Some departments are not documenting in the electronic medical record. If you do not see the information that you expected, contact Release of Information in the Health Information Management department at [phone] for further assistance in locating additional records.[facility] Allergies Active Allergy Reactions Severity Noted Date [...] 200 mg tablet daily. Take with food. [id number] Take by mouth. Active (FOOD ENZYME PO) [...] IV. She has [place] [facility] and [place]. ECHO 09/26/15 revealed a LVEF [...] negative congo red stain). GET negative 03/06/16. Family History Medical History Relation Name Comments [...] SCREENING 2016 PREVNAR/PNEUMOVAX (#1) 2016 INFLUENZA VACCINE 11/06/2016 12/08/2015 TETANUS VACCINE 04/08/2021 04/08/2011 (Previously completed) COLORECTAL CANCER 03/16/2026 03/16/2016 SCREENING PERTUSSIS VACCINE Addressed 04/08/2011 (Previously completed) Overridden with the intention of not completing the topic HEPATITIS C SCREENING Completed 06/18/2016 Results Not on filefrom Last 3 Months
[2017-03-29 19:15] LABS: BASOPHILS % (AUTO) 0 % (0-10); EOSINOPHILS # (AUTO) 0.1 10^3/uL (0.0-0.3); EOSINOPHILS % (AUTO) 1 % (0-10); LYMPHOCYTES # (AUTO) 2.3 X 10^3 (1.0-4.0); LYMPHOCYTES % (AUTO) 52 % (12-44); MEAN CORPUSCULAR HEMOGLOBIN 29 PG (25-34); MEAN CORPUSCULAR HGB CONC 33 G/DL (32-36); MEAN CORPUSCULAR VOLUME 89 FL (80-99); MEAN PLATELET VOLUME 10.2 FL (7.4-10.4); MONOCYTES # (AUTO) 0.4 X 10^3 (0.0-1.0); MONOCYTES % (AUTO) 9 % (0-12); NEUTROPHILS # (AUTO) 1.7 X 10^3 (1.8-7.8); NEUTROPHILS % (AUTO) 38 % (42-75); PLATELET COUNT 211 10^3/uL (130-400); RED BLOOD COUNT 4.88 10^6/uL (4.35-5.85); RED CELL DISTRIBUTION WIDTH 13.3 % (10.0-14.5); WHITE BLOOD COUNT 4.4 10^3/uL (4.3-11.0)
[2017-03-29 19:17] LABS: BILIRUBIN,URINE NEGATIVE (NEGATIVE); KETONES,URINE NEGATIVE (NEGATIVE); LEUKOCYTE ESTERASE ,URINE NEGATIVE (NEGATIVE); NITRITE,URINE NEGATIVE (NEGATIVE); PH,URINE 7 (5-9); PROTEIN,URINE NEGATIVE (NEGATIVE); UROBILINOGEN,URINE NORMAL (NORMAL)
[2017-03-29 19:24] LABS: SQUAMOUS EPITHELIAL CELL,UR RARE /HPF
[2017-03-29] MEDS ORDERED: NALOXONE 2 MG/2 ML (NARCAN) SYR IV ONE ×2 (19:30→19:45)
[2017-03-29] MEDS ORDERED: NS IV 1000 ML 1,000 ML IV ONE ×2 (19:33→20:59)
--- NOTE | 2017-03-29 19:37 | Diagnostic Imaging Report ---
PROCEDURE: CT head and CT cervical spine without contrast. TECHNIQUE: Multiple contiguous axial images were obtained through the brain and cervical spine without the use of intravenous contrast. Sagittal and coronal reformations through the cervical spine were then performed. INDICATION: Possible overdose, mental status changes, fall COMPARISON: None CT head: Ventricles are normal in size, shape, and position. There is no midline shift or mass effect. There is no hemorrhage or evidence of acute ischemia. The bony calvarium is normal. Mastoid air cells and paranasal sinuses clear. IMPRESSION: Negative CT head. CT cervical spine: Alignment is normal. There is no subluxation or fracture. Degenerative changes are present throughout. There is no osseous lesion. IMPRESSION: No traumatic malalignment or fracture. Dictated by: Dictated on workstation # [id number]
[2017-03-29 19:46] LABS: ALANINE AMINOTRANSFERASE 20 U/L (0-55); ALBUMIN 3.9 GM/DL (3.2-4.5); ANION GAP 11 MMOL/L (5-14); ASPARTATE AMINO TRANSFERASE 19 U/L (5-34); BILIRUBIN,TOTAL 0.6 MG/DL (0.1-1.0); BLOOD UREA NITROGEN 15 MG/DL (7-18); BUN/CREATININE RATIO 17; CALCIUM 8.8 MG/DL (8.5-10.1); CARBON DIOXIDE 27 MMOL/L (21-32); CHLORIDE 105 MMOL/L (98-107); CREATININE SERUM 0.87 MG/DL (0.60-1.30); GFR ESTIMATED > 60; GLUCOSE 83 MG/DL (70-105); MAGNESIUM 2.2 MG/DL (1.8-2.4); SODIUM 143 MMOL/L (135-145); TOTAL PROTEIN 6.4 GM/DL (6.4-8.2)
[2017-03-29 19:51] LABS: TROPONIN I < 0.30 NG/ML (<0.30)
--- NOTE | 2017-03-29 19:52 | ED General ---
General Chief Complaint: Altered Mental Status Stated Complaint: FALL;OVERDOSE Nursing Triage Note: altered mental status, possible drug overdose Nursing Sepsis Screen: No Definite Risk Source of Information: Patient Exam Limitations: No Limitations History of Present Illness Time Seen by Provider: 18:58 Initial Comments This 66-year-old woman presents to the emergency room by private vehicle. Her brought her in after she had a fall in the home and struck her head. He reports she has been having episodes of decreased alertness and generalized weakness intermittently for many months. Recently these episodes have been happening about every other day. He lets her rest when these episodes occur. Apparently she has been worked up extensively for these episodes including a visit to the [facility]. She is on multiple medications that could cause sedation including Remeron and Ambien. She does have a history of an axonal Ambien overdose in the past. Patient's became concerned tonight when he went in to wake her up and did not get an appropriate response. He noticed a Remeron pill in the bed. He believes based on counts of pills and the quantity of pills in the home that she took approximately ten 15 mg tablets. He does not know what time the ingestion occurred. Patient has been in her room since the morning hours. Patient is maintaining her airway at this time. She did become hypoxic but recovered her oxygen saturations on nasal cannula at 4 L/m. Patient had a mild tremor of the right upper extremity which reports is typical for her episodes. Allergies and Home Medications Allergies Coded Allergies: clarithromycin (Verified Allergy, Unknown, 11/23/16) codeine (Verified Allergy, Unknown, 11/23/16) morphine (Unverified Allergy, Unknown, 11/23/16) Uncoded Allergies: STEROIDS (Allergy, Unknown, 08/13/08) Home Medications Acetaminophen/Diphenhydramine 1 Each Tablet, 2 EACH PO HS, (Reported) Alpha Lipoic Acid 300 Mg Capsule, 300 MG PO DAILY, (Reported) Azithromycin 250 Mg Tablet, 500 MG PO DAILY, (Reported) Cetirizine HCl 10 Mg Tablet, 10 MG PO DAILY, (Reported) Cholecalciferol (Vitamin D3) 50,000 Unit Capsule, 50,000 UNIT PO WEEK, (Reported ) Cholestyramine (with Sugar) 4 Gm Powd.pack, 4 GM PO DAILY, (Reported) Cyanocobalamin 1,000 Mcg/Ml Inj, 1,000 MCG IJ MWF, (Reported) Fludrocortisone Acetate 0.1 Mg Tab, 0.1 MG PO MWF, (Reported) Glutathione 25 Gm Powder, 2.5 ML INJ MWF, (Reported) Glutathione 50 Gm Powder, 500 MG PO DAILY, (Reported) Lactobacillus Combo No.11 1 Each Cap.sprink, 2 EACH PO DAILY, (Reported) Loratadine 10 Mg Tablet, 30 MG PO DAILY, (Reported) Magnesium Glycinate 100 Mg Tablet, 120 MG PO DAILY, (Reported) Multivit with Calcium,Iron,Min 1 Each Tablet, 2 EACH PO DAILY, (Reported) Nystatin 500,000 Unit Tablet, 2 TAB PO DAILY, (Reported) Pot Bicarb/Sod Bicarb/Cit AC 1 Each Tablet.eff, 1 EACH PO DAILY, (Reported) Ranitidine HCl 150 Mg Tablet, 150 MG PO DAILY, (Reported) Simethicone 125 Mg Capsule, 125 MG PO TID, (Reported) Thyroid,Pork 30 Mg Tablet, 60 MG PO DAILY, (Reported) Tramadol HCl 50 Mg Tablet, 50 MG PO Q12H PRN for PAIN-MILD TO MODERATE, #30 Prescribed by: DREW SOLORIO on 11/28/16 1326 Tryptophan 500 Mg Capsule, 500 MG PO DAILY, (Reported) Ubidecarenone 10 Mg Capsule, 10 MG PO DAILY, (Reported) Zolpidem Tartrate 10 Mg Tablet, 10 MG PO HS, (Reported) [Lumbrokinase] , 20 MG PO DAILY, (Reported) Constitutional: see HPI, malaise, weakness EENTM: no symptoms reported Respiratory: no symptoms reported Cardiovascular: no symptoms reported Gastrointestinal: no symptoms reported Genitourinary: no symptoms reported Musculoskeletal: no symptoms reported Skin: no symptoms reported Psychiatric/Neurological: See HPI Hematologic/Lymphatic: No Symptoms Reported Past Lidrkbz-Zpszvt-Wuxhmb Hx Patient Social History Alcohol Use: Denies Use Recreational Drug Use: No Smoking Status: Never a Smoker 2nd Hand Smoke Exposure: No Recent Foreign Travel: No Contact w/Someone Who Travel: No Recent Infectious Disease Expo: No Recent Hopitalizations: No Immunizations Up To Date Tetanus Booster (TDap): Unknown PED Vaccines UTD: No Seasonal Allergies Seasonal Allergies: Yes (NOT SURE-MAY BE PART OF TIC BORN ILLNESS) Surgeries History of Surgeries: Yes (FOOT SURGERY, HIATAL HERNIA REPAIR, ECTOPIC , WISDOM TEETH) Surgeries: Hysterectomy Respiratory History of Respiratory Disorde: No Cardiovascular History of Cardiac Disorders: Yes (HX ABLATION FOR A-FIB-DIDNT WORK, AFTER HIATAL HERNIA WENT AWAY) Neurological History of Neurological Disord: Yes (TIC BORN ILLNESS-CAUSES TREMORS) Neurological Disorders: Headaches /Migraines Reproductive System : No Hx Reproductive Disorders: No Sexually Transmitted Disease: No HIV/AIDS: No 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, 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 Gastrointestinal History of Gastrointestinal Di: Yes Gastrointestinal Disorders: Chronic Diarrhea Musculoskeletal History of Musculoskeletal Dis: Yes (STENOSIS OF SPINE) Endocrine History of Endocrine Disorders: Yes (TAKES THYROID MEDS TO HELP METABOLISM) Endocrine Disorders: Hypothyroidsim HEENT Loss of Vision: Bilateral Hearing Impairment: Denies Cancer History of Cancer: No Psychosocial History of Psychiatric Problem: Yes Behavioral Health Disorders: Anxiety Integumentary History of Skin or Integumenta: No Blood Transfusions History of Blood Disorders: Yes (TIC BORN ILLNESS) Adverse Reaction to a Blood Tr: No Physical Exam Vital Signs Vital Sign - Last 12Hours 03/29/17 19:00 Temp 94.5 Pulse 66 Resp 12 B/P (MAP) 145/78 (100) Pulse Ox 98 O2 Delivery Nasal Cannula O2 Flow Rate 2.00 Capillary Refill : Less Than 3 Seconds General Appearance: No Apparent Distress, WD/WN, Other (unresponsive) HEENT: PERRL/EOMI (constricted but equal), TMs Normal, Normal ENT Inspection, Pharynx Normal Neck: Normal Inspection, Non Tender, Supple Respiratory: Lungs Clear, Normal Breath Sounds, No Accessory Muscle Use, No Respiratory Distress Cardiovascular: Regular Rate, Rhythm, No Edema, No Murmur, Normal Peripheral Pulses Gastrointestinal: Normal Bowel Sounds, Non Tender, Soft Back: Normal Inspection Extremity: Normal Capillary Refill, Normal Inspection Neurologic/Psychiatric: Other (unresponsive) Skin: Normal Color, Warm/Dry Progress/Results/Core Measures Suspected Sepsis Recent Fever Within 48 Hours: No Infection Criteria Present: None New/Unexplained Altered Menta: No Sepsis Screen: No Definite Risk Sepsis Diagnosis: SIRS Temperature:94.5 Pulse: 66 Respiratory Rate: 12 Laboratory Tests 03/29/17 19:02: White Blood Count 4.4 Blood Pressure 145 /78 Mean: 100 Laboratory Tests 03/29/17 19:02: Creatinine 0.87, Platelet Count 211, Total Bilirubin 0.6 Results/Orders Lab Results Laboratory Tests Test 03/29/17 19:01 03/29/17 19:02 Range/Units Glucometer 75 70-110 MG/DL White Blood Count 4.4 4.3-11.0 10^3/uL Red Blood Count 4.88 4.35-5.85 10^6/uL Hemoglobin 14.3 11.5-16.0 G/DL Hematocrit 44 35-52 % Mean Corpuscular Volume 89 80-99 FL Mean Corpuscular Hemoglobin 29 25-34 PG Mean Corpuscular Hemoglobin Concent 33 32-36 G/DL Red Cell Distribution Width 13.3 10.0-14.5 % Platelet Count 211 130-400 10^3/uL Mean Platelet Volume 10.2 7.4-10.4 FL Neutrophils (%) (Auto) 38 L 42-75 % Lymphocytes (%) (Auto) 52 H 12-44 % Monocytes (%) (Auto) 9 0-12 % Eosinophils (%) (Auto) 1 0-10 % Basophils (%) (Auto) 0 0-10 % Neutrophils # (Auto) 1.7 L 1.8-7.8 X 10^3 Lymphocytes # (Auto) 2.3 1.0-4.0 X 10^3 Monocytes # (Auto) 0.4 0.0-1.0 X 10^3 Eosinophils # (Auto) 0.1 0.0-0.3 10^3/uL Basophils # (Auto) 0.0 0.0-0.1 10^3/uL Urine Color YELLOW Urine Clarity CLEAR Urine pH 7 5-9 Urine Specific [place] 1.005 L 1.016-1.022 Urine Protein NEGATIVE NEGATIVE Urine Glucose (UA) NEGATIVE NEGATIVE Urine Ketones NEGATIVE NEGATIVE Urine Nitrite NEGATIVE NEGATIVE Urine Bilirubin NEGATIVE NEGATIVE Urine Urobilinogen NORMAL NORMAL MG/DL Urine Leukocyte Esterase NEGATIVE NEGATIVE Urine RBC (Auto) NEGATIVE NEGATIVE Urine RBC NONE /HPF Urine WBC NONE /HPF Urine Squamous Epithelial Cells RARE /HPF Urine Crystals NONE /LPF Urine Bacteria NONE /HPF Urine Casts NONE /LPF Urine Mucus NEGATIVE /LPF Urine Culture Indicated NO Sodium Level 143 135-145 MMOL/L Potassium Level 4.0 3.6-5.0 MMOL/L Chloride Level 105 98-107 MMOL/L Carbon Dioxide Level 27 21-32 MMOL/L Anion Gap 11 5-14 MMOL/L Blood Urea Nitrogen 15 7-18 MG/DL Creatinine 0.87 0.60-1.30 MG/DL Estimat Glomerular Filtration Rate > 60 BUN/Creatinine Ratio 17 Glucose Level 83 70-105 MG/DL Calcium Level 8.8 8.5-10.1 MG/DL Magnesium Level 2.2 1.8-2.4 MG/DL Total Bilirubin 0.6 0.1-1.0 MG/DL Aspartate Amino Transf (AST/SGOT) 19 5-34 U/L Alanine Aminotransferase (ALT/SGPT) 20 0-55 U/L Alkaline Phosphatase 55 40-136 U/L Total Creatine Kinase 34 29-168 U/L Troponin I < 0.30 <0.30 NG/ML Total Protein 6.4 6.4-8.2 GM/DL Albumin 3.9 3.2-4.5 GM/DL Thyroid Stimulating Hormone (TSH) 2.29 0.35-4.94 UIU/ML Free Thyroxine 0.89 0.70-1.48 NG/DL Salicylates Level < 5.0 L 5.0-20.0 MG/DL Urine Opiates Screen NEGATIVE NEGATIVE Urine Oxycodone Screen NEGATIVE NEGATIVE Urine Methadone Screen NEGATIVE NEGATIVE Urine Propoxyphene Screen NEGATIVE NEGATIVE Acetaminophen Level < 10 L 10-30 UG/ML Urine Barbiturates Screen NEGATIVE NEGATIVE Ur Tricyclic Antidepressants Screen NEGATIVE NEGATIVE Urine Phencyclidine Screen NEGATIVE NEGATIVE Urine Amphetamines Screen NEGATIVE NEGATIVE Urine Methamphetamines Screen NEGATIVE NEGATIVE Urine Benzodiazepines Screen POSITIVE H NEGATIVE Urine Cocaine Screen NEGATIVE NEGATIVE Urine Cannabinoids Screen NEGATIVE NEGATIVE Serum Alcohol < 10 <10 MG/DL My Orders Orders - LUDWIN REDDING MD Ct Head/Cervical Spine Wo (03/29/17 19:08) Acetaminophen (03/29/17 19:08) Alcohol (03/29/17 19:08) Cbc With Automated Diff (03/29/17 19:08) Comprehensive Metabolic Panel (03/29/17 19:08) Drug Screen Stat (Urine) (03/29/17 19:08) Magnesium (03/29/17 19:08) Salicylate (03/29/17 19:08) Ua Culture If Indicated (03/29/17 19:08) Accucheck Stat ONCE (03/29/17 19:08) Saline Lock/Iv-Start (03/29/17 19:08) Ekg Tracing (03/29/17 19:08) Catheter(Urinary) Insert & Ass 03,15 (03/29/17 19:08) O2 (03/29/17 19:08) Monitor-Rhythm Ecg Trace Only (03/29/17 19:08) Troponin I (03/29/17 19:12) Thyroid Stimulating Hormone (03/29/17 19:16) Free T4 (Free Thyroxine) (03/29/17 19:16) Naloxone Injection (Narcan Injection) (03/29/17 19:30) Creatine Kinase (03/29/17 19:21) Naloxone Injection (Narcan Injection) (03/29/17 19:45) Saline Lock/Iv-Start (03/29/17 19:33) Ns Iv 1000 Ml (Sodium Chloride 0.9%) (03/29/17 19:33) Propofol Drip (Icu) (Diprivan Drip (Icu) (03/29/17 19:54) Chest 1 View, Ap/Pa Only (03/29/17 20:14) Propofol Injection (Diprivan Injection) (03/29/17 21:00) Ns Iv 1000 Ml (Sodium Chloride 0.9%) (03/29/17 20:59) Medications Given in ED Current Medications Medications Dose Ordered Sig/Amelia Route Start Time Stop Time Status Last Admin Dose Admin Naloxone HCl 1 mg ONCE ONCE IV 03/29/17 19:30 03/29/17 19:31 DC 03/29/17 19:31 1 MG Naloxone HCl 1 mg ONCE ONCE IV 03/29/17 19:45 03/29/17 19:46 DC 03/29/17 19:37 1 MG Sodium Chloride 1,000 ml @ 0 mls/hr Q0M ONCE IV 03/29/17 19:33 03/29/17 19:35 DC 03/29/17 19:10 0 MLS/HR Sodium Chloride 1,000 ml @ 0 mls/hr Q0M ONCE IV 03/29/17 20:59 03/29/17 21:00 DC 03/29/17 20:05 0 MLS/HR Vital Signs/I&O Vital Sign - Last 12Hours 03/29/17 03/29/17 03/29/17 03/29/17 19:00 19:00 20:45 20:55 Temp 94.5 97.6 97.6 Pulse 66 65 65 Resp 12 17 17 B/P (MAP) 145/78 (100) 140/76 Pulse Ox 98 98 100 100 O2 Delivery Nasal Cannula Nasal Cannula Nasal Cannula Nasal Cannula O2 Flow Rate 2.00 2.00 2.00 2.00 Capillary Refill : Less Than 3 Seconds Blood Pressure Mean: 100 Point of Care Testing Finger Stick Blood Glucose: 75 ECG Initial ECG Impression Date: Mar 29, 2017 Initial ECG Impression Time: 19:25 Initial ECG Rate: 61 Initial ECG Rhythm: Normal Sinus Initial ECG Intervals: Normal Initial ECG Impression: Normal Comment Normal sinus rhythm with no ST elevation or depression. No abnormal intervals or axis deviation. Diagnostic Imaging Diagonstic Imaging: CT Plain Films/CT/US/NM/MRI: c-spine, head Comments CT head and C-spine viewed by me and report reviewed. See report below: NAME: KARLA CLAY [facility] REC#: [id number] PT STATUS: REG ER : 1950 PHYSICIAN: LUDWIN REDDING MD ADMIT DATE: 03/29/17/ER Signed Date of Exam: 03/29/17 CT HEAD/CERVICAL SPINE WO PROCEDURE: CT head and CT cervical spine without contrast. TECHNIQUE: Multiple contiguous axial images were obtained through the brain and cervical spine without the use of intravenous contrast. Sagittal and coronal reformations through the cervical spine were then performed. INDICATION: Possible overdose, mental status changes, fall COMPARISON: None CT head: Ventricles are normal in size, shape, and position. There is no midline shift or mass effect. There is no hemorrhage or evidence of acute ischemia. The bony calvarium is normal. Mastoid air cells and paranasal sinuses clear. IMPRESSION: Negative CT head. CT cervical spine: Alignment is normal. There is no subluxation or fracture. Degenerative changes are present throughout. There is no osseous lesion. IMPRESSION: No traumatic malalignment or fracture. Dictated by: Dictated on workstation # [id number] Dict: 03/29/171929 Trans: 03/29/171937 Interpreted by: AMBER LEUNG Electronically signed by: AMBER LEUNG 03/29/171937 Diagonstic Imaging: Xray Plain Films/CT/US/NM/MRI: chest Comments Chest x-ray viewed by me and report reviewed. See report below: NAME: KARLA CLAY [facility] REC#: [id number] PT STATUS: DEP ER : 1950 PHYSICIAN: LUDWIN REDDING MD ADMIT DATE: 03/29/17/ER Signed Date of Exam:03/29/17 CHEST 1 VIEW, AP/PA ONLY INDICATION: Drug overdose COMPARISON: 03/18/2008 FINDINGS: Single view of the chest demonstrates new cardiac enlargement without pulmonary edema or infiltrate. There is no pneumothorax or effusion. Osseous structures normal. IMPRESSION: Cardiac enlargement without pulmonary edema or infiltrate Dictated by: Dictated on workstation # [id number] Dict: 03/29/172099 Trans: 03/29/172116 ADARSH [id number] Interpreted by: AMBER LEUNG Electronically signed by: AMBER LEUNG 03/29/172116 Critical Care Note Critical Care Total Time (minutes) 19:50 - CT head and C-spine viewed by me and report reviewed. No acute injuries were identified. Patient is still unresponsive. Narcan 1 mg IV 2 was administered was no response. Labs show no significant abnormalities at this point. Poison control advised that a Remeron overdose can last 20-40 hours. They recommended monitoring for serotonin syndrome. Patient is protecting her airway at this time. Transfer is necessary due to no bed availability at this facility. I spoke with Dr. Mejia, instructor industrial design at [facility]. She is having me route the patient through the ER because of the head trauma. [facility] was selected at 's preference. C-collar remains in place. 20:00 - Case was reviewed with Dr. Kan, ER provider. She and Dr. Mejia both request intubation prior to transfer. 20:35 - Patient is now waking up and speaking in complete sentences but is very somnolent still. [facility] transfer center will pass along this information to Dr. Vasquez who will call back when she is available. 21:09 - Patient departed it with [facility] for transfer to [facility]. As patient was being prepared for transfer, she became less responsive again. Vital signs remained stable including oxygen saturation on 2 L by nasal cannula. Poison control called back and suggested considering [facility] because of the positive benzodiazepines in the urine. However, since EMS was ready to transfer, I did not want to risk agitating the patient at this point in time. She was stable for transfer and no further medications were given. C- collar remained in place for transfer. Departure Impression Impression: Primary Impression: Altered mental status Qualified Codes: R41.82 - Altered mental status, unspecified Additional Impressions: Overdose of medication Qualified Codes: T50.904A - Poisoning by unspecified drugs, medicaments and biological substances, undetermined, initial encounter Fall on same level Qualified Codes: W18.30XA - Fall on same level, unspecified, initial encounter Minor head injury Qualified Codes: S00.90XA - Unspecified superficial injury of unspecified part of head, initial encounter Disposition: 01 HOME, SELF-CARE Condition: Improved Transfer Time Spoke to Accepting Phy: 19:55 Transfer Facility: [facility] to Dr. Kan in the ED. Method of Transfer: EMS Departure-Patient Inst. Referrals: JUAN DALTON MD (PCP) Primary Care Physician ЕЛЕНА WEBSTER DNP (Family) Primary Care Physician LUDWIN REDDING MD Mar 29, 2017 19:52
[2017-03-29 19:53] LABS: ALCOHOL < 10 MG/DL (<10)
[2017-03-29 19:54] LABS: ACETAMINOPHEN < 10 UG/ML (10-30); SALICYLATE < 5.0 MG/DL (5.0-20.0)
[2017-03-29 20:05] LABS: THYROID STIMULATING HORMONE 2.29 UIU/ML (0.35-4.94)
[2017-03-29] MEDS: PROPOFOL DRIP (ICU) 100 ML IV ONE ×2 (20:05→20:55)
[2017-03-29 20:55] VITALS: BP 140/76
[2017-03-29] MEDS ORDERED: PROPOFOL INJECTION 50 ML IV SCH (21:00)
--- NOTE | 2017-03-29 21:07 | Diagnostic Imaging Report ---
INDICATION: Drug overdose COMPARISON: 03/18/2008 FINDINGS: Single view of the chest demonstrates new cardiac enlargement without pulmonary edema or infiltrate. There is no pneumothorax or effusion. Osseous structures normal. IMPRESSION: Cardiac enlargement without pulmonary edema or infiltrate Dictated by: Dictated on workstation # [id number]
== END 2017-03-29 21:09 | disposition short-term general hospital (02) ==
LOC: EDUNIT# 18:57 → ER 18:58
DX: S09.90XA Unspecified injury of head, initial encounter (principal); T43.021A Poisoning by tetracyclic antidepressants, accidental (unintentional), initial encounter; R41.82 Altered mental status, unspecified; I48.91 Unspecified atrial fibrillation; G43.909 Migraine, unspecified, not intractable, without status migrainosus; E03.9 Hypothyroidism, unspecified; F41.9 Anxiety disorder, unspecified; Z90.710 Acquired absence of both cervix and uterus; Z87.19 Personal history of other diseases of the digestive system; W18.30XA Fall on same level, unspecified, initial encounter
CPT/HCPCS: 36415; 70450; 71010; 72125; 80053; 80306; 80320; 80329; 81000; 82550; 82962; 83735; 84439; 84443; 84484; 85025; 93005; 93041

== ENCOUNTER → 2017-06-06 | Outpatient (CLI) | payer BC ==
[~2017-06-06] VITALS: Ht 162.6 cm; Wt 60.1 kg
[~2017-06-06] MED LIST changes: +LACTATED RINGERS 1,000 ML IV ONE; +LACTATED RINGERS 1,000 ML IV SCH
[2017-06-06 13:50] VITALS: BP 129/79
== END ==
LOC: SDC 11:14
PROVIDERS: ATTEND Nurse Practitioner Family
DX: E86.0 Dehydration (principal)
CPT/HCPCS: 96360; 96361

== ENCOUNTER → 2018-04-02 | Outpatient (CLI) | payer BC ==
[~2018-04-02] MED LIST changes: -LACTATED RINGERS 1,000 ML IV ONE; -LACTATED RINGERS 1,000 ML IV SCH; -RANI150T15 PO; +RANI150T46 PO
--- NOTE | 2018-04-02 18:12 | Diagnostic Imaging Report ---
INDICATION: 40-pound weight loss. Comparison is made with prior mammograms from 12/11/2016 and 03/23/2016. 2-D and 3-D bilateral diagnostic mammography was performed with Computer Aided Detection (CAD) system. FINDINGS: Both breasts are heterogeneously dense, limiting the sensitivity of mammography. No dominant mass or malignant-appearing microcalcifications are seen. There are vascular calcifications present. There are surgical clips in the left axilla. IMPRESSION: No mammographic features suspicious for malignancy are identified. ACR BI-RADS Category 2: Benign findings. Result letter will be mailed to the patient. Note: At least 10% of breast cancer is not imaged by mammography. Dictated by: Dictated on workstation # [id number]
== END ==
LOC: RAD 14:22
PROVIDERS: ATTEND Family Medicine
DX: R92.8 Other abnormal and inconclusive findings on diagnostic imaging of breast (principal); R63.4 Abnormal weight loss
CPT/HCPCS: 77066

== ENCOUNTER → 2019-03-25 | Outpatient (CLI) | payer BC ==
[~2019-03-25] MED LIST changes: +RANI-613 PO; -RANI150T46 PO
--- NOTE | 2019-03-25 13:20 | Diagnostic Imaging Report ---
PROCEDURE: MR imaging of the brain without contrast. TECHNIQUE: Multiplanar, multisequence MR imaging of the brain was performed without contrast. INDICATION: Cognitive problems. COMPARISON: Correlation is made with prior MRI of the brain from 01/09/2016. FINDINGS: Diffusion-weighted imaging is unremarkable without evidence of diffusion restriction. The normal expected flow-voids within the carotid siphons are seen. Ventricles are stable in size. Periventricular and subcortical white matter signal abnormality is again noted consistent with chronic microvascular ischemia. No acute intra-axial or extra-axial hemorrhage is detected. The corpus callosum is unremarkable. The sella and parasellar structures are unremarkable. IMPRESSION: Findings of chronic microvascular ischemia, similar to the examination from 2016. No acute intracranial process is detected. Dictated by: Dictated on workstation # [id number]
== END ==
LOC: RAD 12:21
PROVIDERS: ATTEND Nurse Practitioner Family
DX: I67.82 Cerebral ischemia (principal); G47.52 REM sleep behavior disorder; R29.90 Unspecified symptoms and signs involving the nervous system
CPT/HCPCS: 70551

== ENCOUNTER → 2019-04-27 | Outpatient (CLI) | payer BC ==
[~2019-04-27] MED LIST changes: -ACET-2469 PO; +ACET-2715 PO; -TRAM50TA2 PO; +TRM50T PO
--- NOTE | 2019-04-27 12:12 | Diagnostic Imaging Report ---
INDICATION: Routine screening. COMPARISON: 04/02/2018 and 12/11/2016. TECHNIQUE: 2D and 3D bilateral screening mammography was performed with CAD. FINDINGS: Both breasts are heterogeneously dense, limiting the sensitivity of mammography. A circumscribed density in the upper outer right breast appears stable. No new mass or malignant appearing microcalcifications are seen. The axillae are unremarkable. There are clips in the left axilla. IMPRESSION: No mammographic features suspicious for malignancy are identified. ACR BI-RADS Category 2: Benign findings. Result letter will be mailed to the patient. Note: At least 10% of breast cancer is not imaged by mammography. Dictated by: Dictated on workstation # [id number]
== END ==
LOC: RAD 09:34
PROVIDERS: ATTEND Family Medicine
DX: Z12.31 Encounter for screening mammogram for malignant neoplasm of breast (principal)
CPT/HCPCS: 77067

== ENCOUNTER 2019-05-03 14:30 | Observation (INO) | payer BC ==
[~2019-05-03] VITALS: Ht 167.7 cm; Wt 56.7 kg
[2019-05-03 14:51] LABS: BASOPHILS % (AUTO) 0 % (0-10); BILIRUBIN,URINE NEGATIVE (NEGATIVE); CLARITY,URINE CLEAR; COLOR,URINE YELLOW; EOSINOPHILS # (AUTO) 0.1 10^3/uL (0.0-0.3); EOSINOPHILS % (AUTO) 2 % (0-10); GLUCOSE, URINE (UA) NEGATIVE (NEGATIVE); HEMATOCRIT 44 % (35-52); HEMOGLOBIN 14.7 G/DL (11.5-16.0); KETONES,URINE NEGATIVE (NEGATIVE); LEUKOCYTE ESTERASE ,URINE NEGATIVE (NEGATIVE); LYMPHOCYTES # (AUTO) 1.5 X 10^3 (1.0-4.0); LYMPHOCYTES % (AUTO) 42 % (12-44); MEAN CORPUSCULAR HEMOGLOBIN 29 PG (25-34); MEAN CORPUSCULAR HGB CONC 33 G/DL (32-36); MEAN CORPUSCULAR VOLUME 87 FL (80-99); MEAN PLATELET VOLUME 10.3 FL (7.4-10.4); MONOCYTES # (AUTO) 0.4 X 10^3 (0.0-1.0); MONOCYTES % (AUTO) 11 % (0-12); NEUTROPHILS # (AUTO) 1.6 X 10^3 (1.8-7.8); NEUTROPHILS % (AUTO) 45 % (42-75); NITRITE,URINE NEGATIVE (NEGATIVE); PLATELET COUNT 216 10^3/uL (130-400); PROTEIN,URINE NEGATIVE (NEGATIVE); RED CELL DISTRIBUTION WIDTH 12.8 % (10.0-14.5); WHITE BLOOD COUNT 3.6 10^3/uL (4.3-11.0)
--- NOTE | 2019-05-03 14:56 | NUR ---
UNABLE TO DO A NIH SCREENING ON PT DUE TO PT INABLILTY TO FOLLOW COMMANDS AT THIS TIME.
--- NOTE | 2019-05-03 14:59 | ED Neurological Problem ---
General Chief Complaint: Neurological Problems Stated Complaint: ACTING ABNORMALLY/LOW HR Source: patient Exam Limitations: no limitations History of Present Illness Date Seen by Provider: May 03, 2019 Time Seen by Provider: 14:32 Initial Comments Here with report of altered mental status. reports that he noted when she woke up this morning that she was confused and this sometimes occurs. Usually he just lets her sleep again and she will be better the next day. He tried this today but and he was having more difficulty with her as she was increasingly more confused. Has history of being sick or not feeling well and having weakness over the last 4 years. She's been extensively worked up here and by [facility]. Currently she is under the care of Dr. Kaur and they're evaluating for Lyme disease. Patient is only on Ambien which the keeps control of. She does take a Zyrtec daily. No recent injuries noted or reported. No recent significant illnesses otherwise. Timing/Duration: increasing Severity: moderate, severe Associated Symptoms: confusion Allergies and Home Medications Allergies Coded Allergies: clarithromycin (Verified Allergy, Unknown, 11/23/16) codeine (Verified Allergy, Unknown, 11/23/16) morphine (Unverified Allergy, Unknown, 11/23/16) Uncoded Allergies: STEROIDS (Allergy, Unknown, 08/13/08) Home Medications Cetirizine HCl 10 Mg Tablet, 10 MG PO DAILY, (Reported) Hydroxyzine HCl 25 Mg Tablet, 25 MG PO TID Prescribed by: EITAN GARNETT on 05/06/19 1401 Magnesium Oxide 250 Mg Tablet, 2 TAB PO HS, (Reported) Melatonin 1 Mg Tablet, 1 MG PO HS, (Reported) Multivitamin 1 Each Tablet, 1 TAB PO DAILY, (Reported) Zolpidem Tartrate 10 Mg Tablet, 5 MG PO 0300,2100, (Reported) TAKES 1/2 (10MG) TABLET AT BEDTIME (IN ADDITION TO CR DOSE) AND THEN AGAIN AROUND 3AM Patient Home Medication List Home Medication List Reviewed: Yes Review of Systems Review of Systems Constitutional: see HPI; No fever Unable to complete review of systems due to altered mental status Past Etugisx-Cxebbc-Kqazqn Hx Past Med/Social Hx: Reviewed Nursing Past Med/Soc Hx Patient Social History Alcohol Use: Denies Use Recreational Drug Use: No Smoking Status: Never a Smoker 2nd Hand Smoke Exposure: No Recent Foreign Travel: No Contact w/Someone Who Travel: No Recent Hopitalizations: No Physical Abuse: No Sexual Abuse: No Mistreated: No Immunizations Up To Date Tetanus Booster (TDap): Unknown PED Vaccines UTD: No Seasonal Allergies Seasonal Allergies: Yes (NOT SURE-MAY BE PART OF TIC BORN ILLNESS) Past Medical History Surgeries: Yes (FOOT SURGERY, HIATAL HERNIA REPAIR, ECTOPIC , WISDOM TEETH) Hysterectomy Respiratory: No Cardiac: Yes (HX ABLATION FOR A-FIB-DIDNT WORK, AFTER HIATAL HERNIA WENT AWAY) Neurological: Yes (TIC BORN ILLNESS-CAUSES TREMORS) Headaches /Migraines Reproductive Disorders: No 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, Menopausal Sexually Transmitted Disease: No HIV/AIDS: No Gastrointestinal: Yes Chronic Diarrhea Musculoskeletal: Yes (STENOSIS OF SPINE) Endocrine: Yes (TAKES THYROID MEDS TO HELP METABOLISM) Hypothyroidsim Loss of Vision: Bilateral Hearing Impairment: Denies Cancer: No Psychosocial: Yes Anxiety Integumentary: No Blood Disorders: Yes (TIC BORN ILLNESS) Adverse Reaction/Blood Tranf: No Family Medical History Reviewed Nursing Family Hx Physical Exam Vital Signs Vital Signs - First Documented 05/03/19 14:35 Temp 36.4 Pulse 89 Resp 24 B/P (MAP) 143/107 (119) Pulse Ox 100 O2 Delivery Room Air Capillary Refill : Height, Weight, BMI Height: 5'4.00" Weight: 132lbs. 8.0oz. [id number]; 22.7 BMI Method:Estimated General Appearance: WD/WN, no apparent distress HEENT: PERRL/EOMI, pharynx normal Neck: full range of motion, supple Respiratory: lungs clear, normal breath sounds Cardiovascular: regular rate, rhythm, no murmur Gastrointestinal: non tender, soft Back: normal inspection, no CVA tenderness, no vertebral tenderness Extremities: non-tender, normal inspection Neurologic/Psychiatric: disoriented x 3, other (not answering questions or following commands. Patient is awake, confused and moving all 4 extremities.) Crainal Nerves: PERRL; No abnormal eye position Coordination/Gait: other (unable to determine due to altered mental status) Motor/Sensory: other (patient is moving all 4 extremities as well as head, neck and torso. No obvious facial droop. Unable to determine sensory due to altered mental status. She does localize to pain.) Skin: normal color, warm/dry Focused Exam Lactate Level 1/26/20 14:37: Lactic Acid Level 0.86 Lactic Acid Level Laboratory Tests Test 05/03/19 14:37 Lactic Acid Level 0.86 MMOL/L (0.50-2.00) Progress/Results/Core Measures Results/Orders Lab Results Laboratory Tests Test 05/03/19 14:36 05/03/19 14:37 05/03/19 15:04 Range/Units Glucometer 99 70-110 MG/DL Urine Opiates Screen NEGATIVE NEGATIVE Urine Oxycodone Screen NEGATIVE NEGATIVE Urine Methadone Screen NEGATIVE NEGATIVE Urine Propoxyphene Screen NEGATIVE NEGATIVE Urine Barbiturates Screen NEGATIVE NEGATIVE Ur Tricyclic Antidepressants Screen NEGATIVE NEGATIVE Urine Phencyclidine Screen NEGATIVE NEGATIVE Urine Amphetamines Screen NEGATIVE NEGATIVE Urine Methamphetamines Screen NEGATIVE NEGATIVE Urine Benzodiazepines Screen NEGATIVE NEGATIVE Urine Cocaine Screen NEGATIVE NEGATIVE Urine Cannabinoids Screen NEGATIVE NEGATIVE White Blood Count 3.6 L 4.3-11.0 10^3/uL Red Blood Count 5.07 4.35-5.85 10^6/uL Hemoglobin 14.7 11.5-16.0 G/DL Hematocrit 44 35-52 % Mean Corpuscular Volume 87 80-99 FL Mean Corpuscular Hemoglobin 29 25-34 PG Mean Corpuscular Hemoglobin Concent 33 32-36 G/DL Red Cell Distribution Width 12.8 10.0-14.5 % Platelet Count 216 130-400 10^3/uL Mean Platelet Volume 10.3 7.4-10.4 FL Neutrophils (%) (Auto) 45 42-75 % Lymphocytes (%) (Auto) 42 12-44 % Monocytes (%) (Auto) 11 0-12 % Eosinophils (%) (Auto) 2 0-10 % Basophils (%) (Auto) 0 0-10 % Neutrophils # (Auto) 1.6 L 1.8-7.8 X 10^3 Lymphocytes # (Auto) 1.5 1.0-4.0 X 10^3 Monocytes # (Auto) 0.4 0.0-1.0 X 10^3 Eosinophils # (Auto) 0.1 0.0-0.3 10^3/uL Basophils # (Auto) 0.0 0.0-0.1 10^3/uL Prothrombin Time 13.1 12.2-14.7 SEC INR Comment 1.0 0.8-1.4 Activated Partial Thromboplast Time 32 24-35 SEC D-Dimer 0.71 H 0.00-0.49 UG/ML Urine Color YELLOW Urine Clarity CLEAR Urine pH 8.0 5-9 Urine Specific [place] 1.010 L 1.016-1.022 Urine Protein NEGATIVE NEGATIVE Urine Glucose (UA) NEGATIVE NEGATIVE Urine Ketones NEGATIVE NEGATIVE Urine Nitrite NEGATIVE NEGATIVE Urine Bilirubin NEGATIVE NEGATIVE Urine Urobilinogen 0.2 < = 1.0 MG/DL Urine Leukocyte Esterase NEGATIVE NEGATIVE Urine RBC (Auto) NEGATIVE NEGATIVE Urine RBC NONE /HPF Urine WBC NONE /HPF Urine Squamous Epithelial Cells NONE /HPF Urine Crystals NONE /LPF Urine Amorphous Sediment LARGE KLARISSA PHOSPHATE H /LPF Urine Bacteria NEGATIVE /HPF Urine Casts NONE /LPF Urine Mucus NEGATIVE /LPF Urine Culture Indicated NO Sodium Level 144 135-145 MMOL/L Potassium Level 4.0 3.6-5.0 MMOL/L Chloride Level 110 H 98-107 MMOL/L Carbon Dioxide Level 22 21-32 MMOL/L Anion Gap 12 5-14 MMOL/L Blood Urea Nitrogen 13 7-18 MG/DL Creatinine 1.05 0.60-1.30 MG/DL Estimat Glomerular Filtration Rate 52 BUN/Creatinine Ratio 12 Glucose Level 103 70-105 MG/DL Lactic Acid Level 0.86 0.50-2.00 MMOL/L Calcium Level 9.3 8.5-10.1 MG/DL Corrected Calcium 9.1 8.5-10.1 MG/DL Total Bilirubin 0.7 0.1-1.0 MG/DL Aspartate Amino Transf (AST/SGOT) 16 5-34 U/L Alanine Aminotransferase (ALT/SGPT) < 6 0-55 U/L Alkaline Phosphatase 66 40-136 U/L Troponin I < 0.028 <0.028 NG/ML C-Reactive Protein High Sensitivity 0.01 0.00-0.50 MG/DL Total Protein 7.1 6.4-8.2 GM/DL Albumin 4.3 3.2-4.5 GM/DL TSH [place] Testing 0.64 0.35-4.94 UIU/ML Blood Gas Puncture Site R RADIAL Blood Gas Patient Temperature 36.4 Arterial Blood pH 7.40 7.37-7.43 Arterial Blood Partial Pressure CO2 38 35-45 MMHG Arterial Blood Partial Pressure O2 89 79-93 MMHG Arterial Blood HCO3 23 23-27 MMOL/L Arterial Blood Total CO2 24.4 21.0-31.0 MMOL/L Arterial Blood Oxygen Saturation 98 94-100 % Arterial Blood Base Excess -1.0 -2.5-2.5 MMOL/L Agus Test YES-POS Blood Gas Ventilator Setting NO Blood Gas Inspired Oxygen ROOM AIR Micro Results Microbiology 05/03/19 Blood Culture - Preliminary, Resulted No growth 05/03/19 Blood Culture - Preliminary, Resulted No growth My Orders Orders - LAVON VALENTE MD Hs C Reactive Protein (05/03/19 14:45) Lactic Acid Analyzer (05/03/19 14:45) Blood Culture (05/03/19 14:45) Drug Screen Stat (Urine) (05/03/19 14:50) Arterial Blood Gas (05/03/19 14:59) Thyroid Analyzer (05/03/19 14:59) Lactated Ringers (Lr 1000 Ml Iv Solution (05/03/19 15:01) Medications Given in ED Vital Signs/I&O 05/03/19 14:35 Temp 36.4 Pulse 89 Resp 24 B/P (MAP) 143/107 (119) Pulse Ox 100 O2 Delivery Room Air Progress Progress Note : Progress Note Seen and evaluated. IV, labs, EKG, chest x-ray and CT head ordered. Martinez catheter, UA and UDS ordered. LR 1 L bolus. Monitor patient. 1700: Evaluation as above. No significant findings but remains with altered mental status. We will go ahead and admit. I did discuss the case with Dr. Truong and he accepts patient for admission. Family agrees with plan. Initial ECG Impression Date: May 03, 2019 Initial ECG Impression Time: 14:35 Initial ECG Rate: 91 Initial ECG Rhythm: Normal Sinus Comment Sinus rhythm with left bundle branch block, new from 03/29/17. Normal axis. No evidence of ST elevation NH. Interpreted by me. Diagnostic Imaging Diagonstic Imaging: CT Plain Films/CT/US/NM/MRI: head Comments [facility] [place], [place] NAME: KARLA CLAY [facility] REC#: [id number] PT STATUS: REG ER : 1950 PHYSICIAN: CYRIL SINGER APRN ADMIT DATE: 05/03/19/ER Draft Date of Exam:05/03/19 CT HEAD WO-R/O STROKE PROCEDURE: CT head wo r/o stroke. TECHNIQUE: Multiple contiguous axial images were obtained through the brain without the use of intravenous contrast. Auto Exposure Controls were utilized during the CT exam to meet ALARA standards for radiation dose reduction. INDICATION: Nonverbal. The study is less than optimal due to streak and motion artifact. There is no mass, shift of the midline or hemorrhage to suggest an acute intracranial abnormality. The ventricles are not abnormally dilated and similar in size to the prior exam of 03/29/2017. The mild cortical atrophy seen previously is again evident and no different. The bone windows show no evidence for a fracture or for a destructive lesion. The orbits and sinuses were not well-visualized due to the motion artifact. IMPRESSION: 1. There is no evidence for an acute intracranial abnormality on this suboptimal exam. 2. If clinical concern regarding an underlying abnormality persists and further imaging is desired, then MRI would be recommended if the patient can be safely sedated. Dictated on workstation # [id number] Dict: 05/03/19 1510 Trans: 05/03/19 1516 [facility] [id number] Interpreted by: JAYLEN VIGIL MD Electronically signed by: Tu Imaging: Xray Plain Films/CT/US/NM/MRI: chest Comments [facility] [place] [place] NAME: KARLA CLAY [facility] REC#: [id number] PT STATUS: REG ER : 1950 PHYSICIAN: CYRIL SINGER APRN ADMIT DATE: 05/03/19/ER Draft Date of Exam:05/03/19 CHEST 1 VIEW, AP/PA ONLY INDICATION: Weakness, unable to talk. EXAMINATION: Portable erect AP chest at 3:16 p.m. FINDINGS: The heart size is within normal limits and the heart does seem less prominent than noted on the prior exam of 03/29/2017. The lungs are clear. There is no evidence for failure, pneumonia or for a pleural effusion. The mediastinum is not widened. The osseous structures are intact. Surgical clips are again seen overlying the left axilla. IMPRESSION: There is no evidence for active disease. Dictated on workstation # [id number] Dict: 05/03/19 1527 Trans: 05/03/19 1530 [facility] [id number] Interpreted by: JAYLEN VIGIL MD Electronically signed by: Departure Communication (Admissions) Time/Spoke to Admitting Phy: 17:00 Impression Primary Impression: Altered mental status Qualified Codes: R40.4 - Transient alteration of awareness Disposition: ADMITTED INPATIENT Condition: Stable Admissions Decision to Admit Reason: Admit from ER (General) Decision to Admit/Date: May 03, 2019 Time/Decision to Admit Time: 17:00 Departure-Patient Inst. Referrals: DARREL KAUR DO (PCP) Primary Care Physician ЕЛЕНА KAUR DNP (Family) Primary Care Physician Scripts Hydroxyzine HCl (Hydroxyzine HCl) 25 Mg Tablet 25 MG PO TID for anxiety, #90 TAB Prov: EITAN GARNETT MD 05/06/19 LAVON VALENTE MD May 03, 2019 14:59
[2019-05-03] MEDS ORDERED: LACTATED RINGERS 1,000 ML IV ONE (15:01)
[2019-05-03 15:08] LABS: AMORPHOUS SEDIMENT,UR LARGE AMOR PHOSPHATE /LPF; BACTERIA,URINE NEGATIVE /HPF
[2019-05-03 15:10] LABS: ALANINE AMINOTRANSFERASE < 6 U/L (0-55); ALBUMIN 4.3 GM/DL (3.2-4.5); ALKALINE PHOSPHATASE 66 U/L (40-136); BILIRUBIN,TOTAL 0.7 MG/DL (0.1-1.0); BUN/CREATININE RATIO 12; CALCIUM 9.3 MG/DL (8.5-10.1); CARBON DIOXIDE 22 MMOL/L (21-32); CHLORIDE 110 MMOL/L (98-107); CREATININE SERUM 1.05 MG/DL (0.60-1.30); GFR ESTIMATED 52; GLUCOSE 103 MG/DL (70-105); SODIUM 144 MMOL/L (135-145); TOTAL PROTEIN 7.1 GM/DL (6.4-8.2)
--- NOTE | 2019-05-03 15:16 | Diagnostic Imaging Report ---
PROCEDURE: CT head wo r/o stroke. TECHNIQUE: Multiple contiguous axial images were obtained through the brain without the use of intravenous contrast. Auto Exposure Controls were utilized during the CT exam to meet ALARA standards for radiation dose reduction. INDICATION: Nonverbal. The study is less than optimal due to streak and motion artifact. There is no mass, shift of the midline or hemorrhage to suggest an acute intracranial abnormality. The ventricles are not abnormally dilated and similar in size to the prior exam of 03/29/2017. The mild cortical atrophy seen previously is again evident and no different. The bone windows show no evidence for a fracture or for a destructive lesion. The orbits and sinuses were not well-visualized due to the motion artifact. IMPRESSION: 1. There is no evidence for an acute intracranial abnormality on this suboptimal exam. 2. If clinical concern regarding an underlying abnormality persists and further imaging is desired, then MRI would be recommended if the patient can be safely sedated. Dictated by: Dictated on workstation # [id number]
[2019-05-03 15:17] LABS: ABG OXYGEN SATURATION 98 % (94-100); ABG PCO2 38 MMHG (35-45); ABG PO2 89 MMHG (79-93); ABG TCO2 24.4 MMOL/L (21.0-31.0)
[2019-05-03 15:18] LABS: ALLENS TEST YES-POS; INSPIRED O2 ROOM AIR; PATIENT TEMP 36.4; VENTILATOR NO
[2019-05-03 15:19] LABS: AMPHETAMINE SCREEN, URINE NEGATIVE (NEGATIVE); BARBITURATE SCREEN URINE NEGATIVE (NEGATIVE); BENZODIAZEPINES SCREEN URINE NEGATIVE (NEGATIVE); CANNABINOID SCREEN, URINE NEGATIVE (NEGATIVE); COCAINE SCREEN URINE NEGATIVE (NEGATIVE); METHADONE STAT NEGATIVE (NEGATIVE); METHAMPHETAMINE SCREEN URINE S NEGATIVE (NEGATIVE); OPIATE SCREEN URINE NEGATIVE (NEGATIVE); OXYCODONE STAT NEGATIVE (NEGATIVE); PROPOXYPHENE STAT NEGATIVE (NEGATIVE); TRICYCLIC ANTIDEPRESSANTS SCRE NEGATIVE (NEGATIVE)
[2019-05-03 15:28] LABS: FIBRIN DEGRADATION PRODUCTS 0.71 UG/ML (0.00-0.49); PROTHROMBIN TIME PATIENT 13.1 SEC (12.2-14.7)
--- NOTE | 2019-05-03 15:31 | Diagnostic Imaging Report ---
INDICATION: Weakness, unable to talk. EXAMINATION: Portable erect AP chest at 3:16 p.m. FINDINGS: The heart size is within normal limits and the heart does seem less prominent than noted on the prior exam of 03/29/2017. The lungs are clear. There is no evidence for failure, pneumonia or for a pleural effusion. The mediastinum is not widened. The osseous structures are intact. Surgical clips are again seen overlying the left axilla. IMPRESSION: There is no evidence for active disease. Dictated by: Dictated on workstation # [id number]
[2019-05-03 17:51] VITALS: BP 141/89
--- NOTE | 2019-05-03 18:08 | NUR ---
KARLA CLAY admitted to room 422-1, with an admitting diagnosis of AMS, on 05/03/19 from ER via CART, accompanied by ER STAFF.KARLA CLAY introduced to surroundings, call light, bed controls, phone, TV, temperature control, lights, meal times, smoking policy, visitor policy, side rail policy, bathrooms and showers. Patient Rights given to patient in the handbook. KARLA CLAY verbalizes understanding that [facility] is not responsible for the loss or damage to any personal effects or valuables that are kept in the patients posession during their hospitalization. The following Patient Care Plans were discussed with the PT AND FAMILY: Discharge Planning, ALT CEREBRAL TISSUE PERFUSSION, INEFF AIRWAY CLEARANCE, IM MOBILITY, IMP COMMUNICATION, HIGH RISK ASPIRATION, DYSPHAGIA, OT FOR FALL, HIGH RISK INJURY, HIGH RISK ACT INTOL. KARLA CLAY verbalizes understanding of Interdisciplinary Patient Education. Patient and/or family were informed about the Rapid Response Team and its purpose. REPORT FROM CITY COUNCIL MEMBER AT 3193 -- PT CAME TO FLOOR FROM ER AT 1748 WITH SL IN L AC NOTE THAT PT IS TALKING SOME -- VERY SOFT VOICE HARD TO UNDERSTAND AT TIMES -- AND AT TIMES CLEAR -- THEN GARBLED AT TIMES Addendum: 05/03/19 at 1956 by TOBI FUNEZ RN NOTE THAT ORDERS READ FOR PT TO HAVE A SITTER -- CEMENT WORKER VOICED THAT PT WOULD HAVE TELE SITTER THAT WAS STAYING THE NIGHT WITH PT -- HE WILL ADVISED STAFF IF HE NEEDS ASSIST AND IF HE LEAVES --
--- NOTE | 2019-05-03 19:44 | NUR ---
PT HAS TELESITTER AT THIS TIME. SHE DOES HAVE ORDERS FROM ER THAT STATES SHE NEEDS A SITTER D/T AMS. REPORTS THAT HE WILL STAY TONIGHT AND IF HE NEEDS ASSISTANCE TO PLEASE ASK THIS RN OR ANYONE ON NURSING STAFF. BAND SAWING MACHINE OPERATOR IS AWARE OF THIS SITUATION.
[2019-05-03 20:00] VITALS: BP 152/90
[2019-05-03] MEDS: ONDANSETRON 4 MG/2 ML (SDV) Z0FRAN IV PRN (21:02)
[2019-05-04 00:23] VITALS: BP 152/88
[2019-05-04] MEDS: LACTATED RINGERS 1,000 ML IV SCH ×4 (01:42→17:41)
[2019-05-04 04:59] VITALS: BP 142/76
[2019-05-04 05:29] LABS: BASOPHILS % (AUTO) 0 % (0-10); EOSINOPHILS # (AUTO) 0.1 10^3/uL (0.0-0.3); EOSINOPHILS % (AUTO) 2 % (0-10); HEMATOCRIT 41 % (35-52); HEMOGLOBIN 13.6 G/DL (11.5-16.0); LYMPHOCYTES # (AUTO) 1.2 X 10^3 (1.0-4.0); LYMPHOCYTES % (AUTO) 30 % (12-44); MEAN CORPUSCULAR HEMOGLOBIN 29 PG (25-34); MEAN CORPUSCULAR HGB CONC 33 G/DL (32-36); MEAN CORPUSCULAR VOLUME 88 FL (80-99); MONOCYTES # (AUTO) 0.4 X 10^3 (0.0-1.0); MONOCYTES % (AUTO) 10 % (0-12); NEUTROPHILS # (AUTO) 2.2 X 10^3 (1.8-7.8); NEUTROPHILS % (AUTO) 57 % (42-75); PLATELET COUNT 195 10^3/uL (130-400); RED CELL DISTRIBUTION WIDTH 12.6 % (10.0-14.5); WHITE BLOOD COUNT 3.9 10^3/uL (4.3-11.0)
[2019-05-04 06:04] LABS: ALANINE AMINOTRANSFERASE < 6 U/L (0-55); ALBUMIN 3.9 GM/DL (3.2-4.5); ALKALINE PHOSPHATASE 62 U/L (40-136); BILIRUBIN,TOTAL 0.7 MG/DL (0.1-1.0); BUN/CREATININE RATIO 10; CARBON DIOXIDE 23 MMOL/L (21-32); CHLORIDE 111 MMOL/L (98-107); CHOLESTEROL 181 MG/DL (< 200); CREATININE SERUM 0.99 MG/DL (0.60-1.30); GFR ESTIMATED 56; GLUCOSE 88 MG/DL (70-105); HDL CHOLESTEROL 70 MG/DL (40-60); POTASSIUM 3.9 MMOL/L (3.6-5.0); SODIUM 144 MMOL/L (135-145); TOTAL PROTEIN 6.2 GM/DL (6.4-8.2); TRIGLYCERIDES 90 MG/DL (<150); VLDL CHOLESTEROL 18 MG/DL (5-40)
[2019-05-04 07:55] VITALS: BP 136/76
--- NOTE | 2019-05-04 08:38 | ST Dysphagia Evaluation ---
Speech Evaluation-General Medical Diagnosis Neurological Problems Onset Date: May 03, 2019 Therapy Diagnosis Therapy Diagnosis: Oropharyngeal Dysphagia Referral Referring Physician: Dr. Truong Reason for Referral: Evaluation/Treatment Social History Current Living Status: Spouse Speech PLF/Current-Dysphagia Prior Level of Function Patient reported that she had normal swallow functions and no problems with different liquid/food consistencies prior to hospital admission. Subjective Patient was alert and cooperative for evaluation tasks. Patient sat upright in her bed for the duration of the evaluation. It is important to note that the patients energy level was low and she reported having no appetite this morning. Cognitive Status Patient Orientation: Person, Place, Eyes Open, Situation Oral Motor Skills Dentition: Natural Current Food Consistancy: Regular, Thin Liquids Ability to Follow Directions: Good Oral Expression Ability: No Impairment Voice Voice Phonatory-Based Quality: Breathy, Weak Voice Pitch: Normal Voice Loudness: Mildly Soft/Quiet Face Facial Symmetry: Symmetrical Oral-Facial Assessment Oral-Facial Dentition: Normal Labial Seal Description: Normal Smile: Normal Lingual Protrusion: Normal Lingual ROM: Normal Lingual Strength: Normal Volitional Dry Swallow: Yes Dysphagia Evaluation Consistencies Presented: Regular, Thin Liquid, Mechanical Soft, Pureed Dietary Recommendations: Regular Liquid Recommendations: Thin Swallowing Precautions: Alternate Liquids/Solids, Double Swallow, Decreased Bolus 1/2 Tsp, Liquids from Straw, Small Bites and Sips, Sitting Upright 90 Degrees, Sitting 90 Degrees 30 Post Intake Dysphagia Evaluation Summary Patient was admitted to the acute floor s/p neurological problems. Patient was presented thin liquid via 1/2 tsp spoon and straw and presented with no s/s of aspiration. Patient was then presented with pureed, mechanical soft, and regular consistencies via 1/2 tsp spoon and demonstrated no s/s of aspiration. It is recommended that the patient receive a DYSPHAGIA III diet with thin liquids. Patient was educated on the compensatory strategies of alternate liquids and solids during mealtime, reduced bolus size, and sitting upright during all meal times. Barriers to Learning Current medical status Speech-Plan Patient/Family Goals Patient/Family Goals: Patient reports that she would like to have more of an appetite to eat. Treatment Plan Speech Therapy Treatment Plan: Discontinue ST Treatment Duration: May 04, 2019 Frequency: 1 time per week Estimated Hrs Per Day: .25 hour per day Rehab Potential: Good Barriers to Learning: Current medical status Pt/Family Agrees to Plan: Yes Safety Risks/Education Teaching Recipient: Patient, Significant Other Teaching Methods: Demonstration, Discussion Response to Teaching: Verbalize Understanding Education Topics Provided: Patient was educated on the importance of utilizing compensatory strategies during mealtime. Time Speech Therapy Time In: 08:15 Speech Therapy Time Out: 08:30 Total Billed Time: 15 Billed Treatment Time Naveen GLENNA Perez May 04, 2019 08:37
[2019-05-04] MEDS ORDERED: METHYLPHENIDATE 5 MG (RITALIN) TAB PO NR (11:00)
[2019-05-04] MEDS ORDERED: CATHETER FLUSH 10 ML SYR IV PRN (11:45)
--- NOTE | 2019-05-04 11:45 | History & Physical-Hospitalist ---
History of Present Illness HPI/Chief Complaint Patient is a 68-year-old female with a past medical history of relapsing altered mental status who presented to the emergency department due to a recurrent episode. She is able to provide some history feels she cannot fully explain her sentences and will first to her for most details. Her symptoms started roughly 3 years ago. She followed with Dr. Woods at the time and had extensive workup done but has since transferred to [facility] and continued to have further workup done. He states she has had a lumbar puncture, sleep study, multiple MRIs, and countless blood tests without any answer to the etiology of her symptoms. She states that she can feel her episodes coming on. Her hands and feet get very cold and shaky. She becomes very weak. She has difficulty forming sentences. She was just increased on her Ambien last month and her symptoms have worsened in that timeframe. I did call and discuss this with [facility] who states she has same sleep medicine and neurology without any answers. She reports she is feeling better today and about 50 percent of her baseline. We did discuss options for workup and treatment but that etiology would likely not be found while inpatient. We did discuss possible psychiatric etiologies. She is hesitant at this time to pursue psychiatric evaluation. Source: patient Date Seen 05/04/19 Time Seen by a Provider: 10:45 Attending Physician Yasmin Truong MD PCP Mehul Kaur DO Referring Physician Date of Admission May 03, 2019 at 17:00 Home Medications & Allergies Home Medications Reviewed patient Home Medication Reconciliation performed by pharmacy medication reconciliations database technician and/or nursing. Patients Allergies have been reviewed. Allergies Allergies Coded Allergies clarithromycin (Verified Allergy, Unknown, 11/23/16) codeine (Verified Allergy, Unknown, 11/23/16) morphine (Unverified Allergy, Unknown, 11/23/16) Uncoded Allergies STEROIDS ( Allergy, Unknown, 08/13/08) Past Holmcbt-Zjeeci-Sjjnct Hx Past Med/Social Hx: Reviewed Nursing Past Med/Soc Hx Patient Social History Alcohol Use: Denies Use Recreational Drug Use: No Smoking Status: Never a Smoker 2nd Hand Smoke Exposure: No Physical Abuse Screen: No Sexual Abuse: No Recent Foreign Travel: No Contact w/other who traveled: No Recent Hopitalizations: No Recent Infectious Disease Expo: No Immunizations Up To Date Tetanus Booster (TDap): Unknown Pediatric: No Date of Influenza Vaccine: Jan 06, 2019 Seasonal Allergies Seasonal Allergies: Yes (NOT SURE-MAY BE PART OF TIC BORN ILLNESS) Past Medical History Surgeries: Hysterectomy Neurological: Headaches /Migraines Reproductive: No Sexually Transmitted Disease: No HIV/AIDS: No Hysterectomy, Menopausal Gastrointestinal: Chronic Diarrhea Endocrine: Hypothyroidsim Loss of Vision: Bilateral Hearing Impairment: Denies Psychosocial: Anxiety History of Blood Disorders: Yes (TIC BORN ILLNESS) Adverse Reaction to Blood Combs: No Family History Reviewed Nursing Family Hx No Pertinent Family Hx Review of Systems Constitutional: malaise, weakness EENTM: no symptoms reported Respiratory: no symptoms reported Gastrointestinal: loss of appetite; No nausea, No vomiting Genitourinary: no symptoms reported Musculoskeletal: no symptoms reported, muscle weakness Skin: no symptoms reported Psychiatric/Neurological: See HPI; Denies Headache, Denies Numbness; Tremors, Weakness Physical Exam Physical Exam Vital Signs Vital Signs - First Documented 05/03/19 14:35 Temp 36.4 Pulse 89 Resp 24 B/P (MAP) 143/107 (119) Pulse Ox 100 O2 Delivery Room Air Capillary Refill : Less Than 3 Seconds Height, Weight, BMI Height: 5'4.00" Weight: 132lbs. 8.0oz. [id number]; 20.16 BMI Method:Estimated General Appearance: Thin HEENT: Moist Mucous Membranes; No Scleral Icterus (L), No Scleral Icterus (R) Neck: Normal Inspection, Supple Respiratory: Lungs Clear, No Respiratory Distress Cardiovascular: Regular Rate, Rhythm, No Murmur Gastrointestinal: Normal Bowel Sounds, Non Tender, Soft Neurologic/Psychiatric: Alert, Oriented x3, Other (incredibly flat affect, keeps eyes closed more of the time) Results Results/Procedures Labs Laboratory Tests 05/03/19 14:37 05/04/19 05:10 Patient resulted labs reviewed. Imaging: Reviewed Imaging Report Imaging CT HEAD WO-R/O STROKE PROCEDURE: CT head wo r/o stroke. TECHNIQUE: Multiple contiguous axial images were obtained through the brain without the use of intravenous contrast. Auto Exposure Controls were utilized during the CT exam to meet ALARA standards for radiation dose reduction. INDICATION: Nonverbal. The study is less than optimal due to streak and motion artifact. There is no mass, shift of the midline or hemorrhage to suggest an acute intracranial abnormality. The ventricles are not abnormally dilated and similar in size to the prior exam of 03/29/2017. The mild cortical atrophy seen previously is again evident and no different. The bone windows show no evidence for a fracture or for a destructive lesion. The orbits and sinuses were not well-visualized due to the motion artifact. IMPRESSION: 1. There is no evidence for an acute intracranial abnormality on this suboptimal exam. 2. If clinical concern regarding an underlying abnormality persists and further imaging is desired, then MRI would be recommended if the patient can be safely sedated. Assessment/Plan Admission Diagnosis AMS and Weakness Admission Status: Observation Assessment and Plan AMS Generalized Weakness - CT negative for acute CVA - Offered MRI and pt declined at this time - Will consult PT/OT - Discussed with her PCNP and will trial short acting stimulant in AM to help with sleep wake cycle- informed patient this would only be a short term measure, she is agreeable - Discussed with pt, , and PCNP about possible [facility] at [facility] admission, PCNP agreeable to this plan- pt would like to discuss with family - Hold AM ambien, DC ER Ambien Pt taking 5mg Ambien at 2100 and 0300, along with 12.5mg Ambien ER at 2100 and 5mg Ambien in AM for total of 27.5mg Ambien per day Clinical Quality Measures DVT/VTE Risk/Contraindication: Risk Factor Score Per Nursin RFS Level Per Nursing on Admit: 4+=Very High EITAN GARNETT MD May 04, 2019 11:45
[2019-05-04] MEDS ORDERED: MAGN250T13 PO (11:56)
[2019-05-04] MEDS ORDERED: MULT1TAB69 PO (11:56)
[2019-05-04] MEDS ORDERED: MELA1TAB8 PO (11:56)
[2019-05-04] MEDS ORDERED: ZOLP12.546 PO (11:56)
[2019-05-04] MEDS ORDERED: ZOLP10TA5 PO (11:56)
--- NOTE | 2019-05-04 11:57 | NUR ---
SPOKE WITH THE PATIENTS ABOUT MEDICATIONS. HE LISTED WHAT SHE TAKES. I EXPLAINED WE HAD SEVERAL MEDICATION ON HER PROFILE FROM PREVIOUS ADMISSIONS AND HE STATES HE IS AWARE BUT SHE NO LONGER TAKES ANYTHING OTHER THAT WHAT HE LISTED. I VERIFIED THE ZOLPIDEM SCRIPTS WITH THE EXT MED HX WHICH IS THE ONLY PRESCRIPTION MEDICATION HE STATES SHE TAKES. SHE FILLED ZOLPIDEM 10MG #45 FOR 30 DAYS AND THE CR 12.5MG DOSE. HE STATES SHE TAKES THE CR TAB ALONG WITH 1/2 TAB OF THE 10MG AT BEDTIME THEN AROUND 3AM TAKES ANOTHER 1/2 TAB OF THE 10MG. THE OTHER 1/2 TAB OF THE 10MG THAT IS ALLOTTED TO HER SHE DOES NOT ALWAYS TAKE, SHE TAKES IT DURING THE DAY IF SHE HAS AN EPISODE THAT SHE NEEDS TO CALM DOWN FROM AND SLEEP. OTC MEDS: ZYRTEC DAILY MTV DAILY 2 MAG HS MELATONIN 1MG HS
[2019-05-04 12:00] VITALS: BP 150/76
--- NOTE | 2019-05-04 13:16 | NUR ---
Pt is [place]. Passenger Service Representative provided prayer and Communion.
--- NOTE | 2019-05-04 13:53 | Occupational Therapy Eval ---
OT Evaluation-General/PLF Medical Diagnosis Admission Date May 03, 2019 at 17:00 Medical Diagnosis: Neurological Problems/ AMS Onset Date: May 03, 2019 Therapy Diagnosis Therapy Diagnosis: Decreased ADL status. Height/Weight Height (Feet): 5 Height (Inches): 4.00 Weight (Pounds): 132 Weight (Ounces): 8.0 Precautions Precautions/Isolations: Fall Prevention, Standard Precautions Safety Interventions: Notify Family, Reorient-PRN Weight Bear Status Weight Bearing Restriction: Weight Bearing/Tolerated Referral Physician: Noemi Walter MD Referral Reason: Activity Tolerance, Self Care, Evaluation/Treatment, Strengthening/ROM Medical History Additional Medical History anxiety, hypothyroidism, bilateral loss of vision. Reviewed History: Yes Social History Home: Multilevel Current Living Status: Spouse Entry Into Home: Stairs With Railing Steps Into Home: 1 ADL-Prior Level of Function SCALE: Activities may be completed with or without assistive devices. 7-Lohqdtfjuf-fksvwsc completes the activity by him/herself with no assistance from a helper. 5-Set-up or Clean-up Assistance-helper sets up or cleans up; patient completes activity. [place] assists only prior to or following the activity. 4-Supervision or Touching Assistance-helper provides verbal cues and/or touching/steadying and/or contact guard assistance as patient completes activity. Assistance may be provided throughout the activity or intermittently. 3-Partial/Moderate Assistance-helper does LESS THAN HALF the effort. [place] lifts, holds or supports trunk or limbs, but provides less than half the effort. 2-Substantial/Maximal Assistance-helper does MORE THAN HALF the effort. [place] lifts or holds trunk or limbs and provides more than half the effort. 7-Crmxpeziw-ufsvsd does ALL the effort. Patient does none of the effort to complete the activity. Or, the assistance of 2 or more helpers is required for the patient to complete the activity. If activity was not attempted, code reason: 7-Patient Refused. 9-Not Applicable-not attempted and the patient did not perform the activity before the current illness, exacerbation or injury. 10-Not Attempted due to Environmental Limitations-(lack of equipment, weather restraints, etc.). 88-Not Attempted due to Medical Conditions or Safety Concerns. 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 Pt states decreased appetite and no desire to eat any more. Pt agreeable to OT eval/ treat. Mental Status/Objective Patient Orientation: Person, Place, Situation, Normal For Age Attachments: Maloney Catheter, IV Current Glasses/Contacts: Yes Hearing Aids: No Dentures/Partials: No Hand Dominance: Right Upper Extremity ROM WLF BUE Upper Extremity Coordination WFL BUE Upper Extremity Sensation WLF BUE Upper Extremity Strength WFL BUE decreased color checker roving or yarn strength. ADL-Treatment Eating (QC): 6 (able to eat with IND, pt expresses minimal desire to continue eating. ) Lower Body Dressing (QC): 7 On/Off Footwear (QC): 2 Other Treatments Pt seen in bed, present through session. Pt states she is on the uphill cole of "episode," explains episode as a depletion of desire to complete activities, she lays down during day, pt's appetite depletes, pt's mind "slows down," and all of her senses become "slow/ sensitive." Pt's states pt will not go up/ down stairs or do much self-care during episodes. Pt states she is typically able to do all ADLs on own, but during episodes has "no desire" to complete ADLs, assists. Pt's states episodes last ~3-5 days, balance decreases, pt denies dizziness. Pt able to reach socks while in bed/ unable to doff. Pt completes UB MMT EOB. PT/ OT co-treat from [id number]: Co-treat rendered due to safety and need for 2 skilled therapists that of which an aide would not be able to complete. Pt completes bed mob with SBA, encouragement to walk as pt concerned of maloney cath and IV. Pt sit to stand with SBA, up to walker. Pt able to walk down elder while talking. Pt expresses once in room/ in recliner that she "wears out" more easily when in episode. Pt left in room with and PT present. Pt to benefit from OT tx session to increase strength and abilities to complete ADLs with more IND. Education OT Patient Education: Correct positioning, Exercise program, Instructions to caregiver, Modified ADL techniques, Rehab process, Safety issues Teaching Recipient: Patient Teaching Methods: Demonstration, Discussion Response to Teaching: Verbalize Understanding, Return Demonstration OT Residential Goals Mortgage Closing Clerk Goals Time Frame: May 11, 2019 Eating (QC): 6 Oral Hygiene (QC): 6 Toileting Hygiene (QC): 6 Shower/Bathe Self (QC): 6 Upper Body Dressing (QC): 6 Lower Body Dressing (QC): 6 On/Off Footwear (QC): 6 Additional Goals: 1-Demonstrate ADL Tasks, 2-Verbalize Understanding, 3-ImproveStrength/Marj 1=Demonstrate adherence to instructed precautions during ADL tasks. 2=Patient will verbalize/demonstrate understanding of assistive devices/modifications for ADL. 3=Patient will improve strength/tolerance for activity to enable patient to perform ADL's. OT Education/Plan Problem List/Assessment Assessment: Decreased Activ Tolerance, Impaired I ADL's, Impaired Self-Care Skills Discharge Recommendations Plan/Recommendations: Continue POC Therapy Discharge Recommendati: Home & Family Treatment Plan/Plan of Care Treatment,Training & Education: Yes Patient would benefit from OT for education, treatment and training to promote independence in ADL's, mobility, safety and/or upper extremity function for ADL's. Plan of Care: ADL Retraining, Caregiver Training, Functional Mobility, UE Funct Exercise/Act Treatment Duration: May 11, 2019 Frequency: 5 times per week Estimated Hrs Per Day: .25 hour per day Agreement: Yes Rehab Potential: Good Time/GCodes Start Time: 13:20 Stop Time: 13:45 Total Time Billed (hr/min): 25 Billed Treatment Time OT IND session: [id number] (1, EVM 12) OT/ PT co-treat: [id number] (1, FA 13)= 25 min. WOLF VELASCO OTR May 04, 2019 13:53
--- NOTE | 2019-05-04 14:20 | Physical Therapy Evaluation ---
PT Evaluation-General Medical Diagnosis Admission Date May 03, 2019 at 17:00 Medical Diagnosis: Neurological Problems/ AMS Onset Date: May 03, 2019 Therapy Diagnosis Therapy Diagnosis: Debility/Deconditioning Height/Weight Height (Feet): 5 Height (Inches): 4.00 Weight (Pounds): 132 Weight (Ounces): 8.0 Precautions Precautions/Isolations: Fall Prevention, Standard Precautions Weight Bear Status Right Lower Extremity: Right Weight Bearing/Tolerated Left Lower Extremity: Left Weight Bearing/Tolerated Referral Physician: Noemi Walter MD Reason for Referral: Evaluation/Treatment Medical History Pertinent Medical History: Atrial Fib, Hypothroidism Additional Medical History Anxiety Current History Patient presented to ER with AMS. brought patient in. Reviewed History: Yes Social History Home: Multilevel Current Living Status: Spouse Entry Into Home: Stairs With Railing PT Steps Into Home: 1 Prior Prior Level of Function SCALE: Activities may be completed with or without assistive devices. 5-Mjcfxlgfgg-dspdepp completes the activity by him/herself with no assistance from a helper. 5-Set-up or Clean-up Assistance-helper sets up or cleans up; patient completes activity. [place] assists only prior to or following the activity. 4-Supervision or Touching Assistance-helper provides verbal cues and/or touching/steadying and/or contact guard assistance as patient completes activity. Assistance may be provided throughout the activity or intermittently. 3-Partial/Moderate Assistance-helper does LESS THAN HALF the effort. [place] lift s, holds or supports trunk or limbs, but provides less than half the effort. 2-Substantial/Maximal Assistance-helper does MORE THAN HALF the effort. [place] lifts or holds trunk or limbs and provides more than half the effort. 2-Hfteqzvml-bhfjhv does ALL the effort. Patient does none of the effort to complete the activity. Or, the assistance of 2 or more helpers is required for the patient to complete the activity. If activity was not attempted, code reason: 7-Patient Refused. 9-Not Applicable-not attempted and the patient did not perform the activity before the current illness, exacerbation or injury. 10-Not Attempted due to Environmental Limitations-(lack of equipment, weather restraints, etc.). 88-Not Attempted due to Medical Conditions or Safety Concerns. Bed Mobility: 6 Transfers (B,C,W/C): 6 Gait: 6 Stairs: 6 Indoor Mobility (Ambulation): Independent Stairs: Independent Prior Devices Use: None PT Evaluation-Current Subjective Patient is agreeable to therapy. Objective Patient Orientation: Person, Place, Time, Situation Attachments: Martinez Catheter, IV ROM/Strength ROM Lower Extremities WFL BLE Strength Lower Extremities WFL BLE Integumentary/Posture Integumentary See nursing notes. Bowel Incontinence: No Bladder Incontinence: Martinez Cath Sensory Vision: Functional Hearing: Functional Hand Dominance: Right Sensation Right Lower Extremit: Intact Sensation Left Lower Extremity: Intact Transfers Roll Left to Right (QC): 6 Lying to Sitting/Side of Bed(Q: 6 Sit to Stand (QC): 4 Chair/Cyr-xc-Qknzc Xfer(QC): 4 CGA for safety. Gait Does the Patient Walk?: Yes Mode of Locomotion: Walk Anticipated Mode of Locomotion: Walk Walk 10 feet (QC): 4 Walk 50 ft with 2 Turns(QC): 4 Walk 150 ft (QC): 4 Distance: 300' Gait Assistive Device: FWW Comments/Gait Description CGA for safety. Patient states she feel shaky during ambulation. Wheelchair Training Does the Pt Use a Wheelchair?: No Balance Sitting Static: Good Sitting Dynamic: Good Standing Static: Good Standing Dynamic: Good Assessment/Needs Patient is lethargic and fatigues quickly during ambulation but is willing to walk further. Patient states that this is a good day for her and on a bad she would not be able to do as much as she has done today. Patient was slightly unsteady during ambulation. Patient requires skilled therapy to aide patient in reaching and maintaining her maximum LOF. Rehab Potential: Fair PT Customer Solutions Coordinator Goals Shelter Goals PT Shelter Goals Time Frame: May 11, 2019 Roll Left & Right (QC): 6 Sit to Lying (QC): 6 Lying-Sitting on Side/Bed(QC): 6 Sit to Stand (QC): 6 Chair/Zvn-li-Kamak Xfer(QC): 6 Does the Patient Walk: Yes Walk 10 feet (QC): 6 Walk 50ft with 2 Turns (QC): 6 Walk 150 ft (QC): 6 PT Plan Problem List Problem List: Activity Tolerance, Functional Strength, Safety, Balance, Gait, Transfer, Bed Mobility, ROM Treatment/Plan Treatment Plan: Continue Plan of Care Treatment Plan: Bed Mobility, Education, Functional Activity Marj, Functional Strength, Gait, Safety, Therapeutic Exercise, Transfers Treatment Duration: May 11, 2019 Frequency: 6 times per week Estimated Hrs Per Day: .25 hour per day Patient and/or Family Agrees t: Yes Safety Risks/Education Patient Education: Gait Training, Transfer Techniques Teaching Recipient: Patient Teaching Methods: Discussion Response to Teaching: Reinforcement Needed Discharge Recommendations Therapy Discharge Recommendati: Home & Family Time/GCodes Time In: 1332 Time Out: 1349 Total Billed Treatment Time: 17 Total Billed Treatment 1 visit EV (17 minutes) PAULETTE OCAMPO PT May 04, 2019 14:20
[2019-05-04 16:00] VITALS: BP 149/88
--- NOTE | 2019-05-04 16:10 | NUR ---
CM/SS sent referral to [facility] via fax ([phone]) per families request to Dr. Walter. They are reviewing the referral and will contact this CM/SS sometime this evening. Will continue to follow and work with the patient and family.
[2019-05-04] MEDS ORDERED: PATIENT MAY USE OWN MEDS, ALL MC SCH (19:00)
[2019-05-04] MEDS ORDERED: NON-FORMULARY MEDICATION 1 EA EA (Zolpidem Tartrate 5 MG) PO PRN (19:00)
[2019-05-04 20:00] VITALS: BP 151/66
[2019-05-04] MEDS ORDERED: MAGNESIUM OXIDE PO SCH (21:00)
[2019-05-04] MEDS ORDERED: NON-FORMULARY MEDICATION 1 EA EA (Zolpidem Tartrate (Ambien) 5 MG) PO SCH (21:00)
[2019-05-04] MEDS ORDERED: NON-FORMULARY MEDICATION 1 EA EA (Melatonin 1 MG) PO SCH (21:00)
[2019-05-04] MEDS: ZOLPIDEM 5 MG (AMBIEN) TAB PO SCH (22:13)
[2019-05-04] MEDS: MELATONIN 3 MG TABLET PO SCH (22:13)
[2019-05-04] MEDS: MAGNESIUM OXIDE (MAG-OX)400 MG TAB PO SCH (22:13)
[2019-05-05] VITALS (7 sets, daily range): BP systolic 107–166; BP diastolic 56–85
[2019-05-05] MEDS ORDERED: NON-FORMULARY MEDICATION 1 EA EA (Cetirizine HCl (Zyrtec) 10 MG) PO SCH (09:00)
[2019-05-05] MEDS ORDERED: METHYLPHENIDATE 5 MG (RITALIN) TAB PO SCH (09:00)
[2019-05-05] MEDS: MULTIVIT W/MINERALS TAB (THERAGRAN M) PO SCH (09:37)
[2019-05-05] MEDS: LORATADINE (CLARITIN) 10 MG TAB PO SCH (09:39)
--- NOTE | 2019-05-05 11:53 | NUR ---
NOTE THAT DR GARNETT VOICED PT IS HAVING ANXIETY ATTACKS -- SHE IS TRYING TO PLACE PT FOR AMBIEN WITHDRAW AND THE ANXIETY --
--- NOTE | 2019-05-05 12:08 | Physical Therapy Daily Note ---
PT Daily Note-Current Subjective Patient refuse getting up for walk but agreed because she had to get up to go the bathroom. Appearance Patient in bed with call light and bedside table within reach. Patient present. Bed alarm activated. Mental Status Patient Orientation: Confused, [place] Transfers SCALE: Activities may be completed with or without assistive devices. 5-Zpytofgwjd-vmuewdt completes the activity by him/herself with no assistance from a helper. 5-Set-up or Clean-up Assistance-helper sets up or cleans up; patient completes activity. [place] assists only prior to or following the activity. 4-Supervision or Touching Assistance-helper provides verbal cues and/or touching/steadying and/or contact guard assistance as patient completes activit y. Assistance may be provided throughout the activity or intermittently. 3-Partial/Moderate Assistance-helper does LESS THAN HALF the effort. [place] lifts, holds or supports trunk or limbs, but provides less than half the effort. 2-Substantial/Maximal Assistance-helper does MORE THAN HALF the effort. [place] lifts or holds trunk or limbs and provides more than half the effort. 6-Qgqnsdgqj-dyhkwq does ALL the effort. Patient does none of the effort to complete the activity. Or, the assistance of 2 or more helpers is required for the patient to complete the activity. If activity was not attempted, code reason: 7-Patient Refused. 9-Not Applicable-not attempted and the patient did not perform the activity before the current illness, exacerbation or injury. 10-Not Attempted due to Environmental Limitations-(lack of equipment, weather restraints, etc.). 88-Not Attempted due to Medical Conditions or Safety Concerns. Roll Left & Right (QC): 6 Sit to Lying (QC): 6 Lying to Sitting/Side of Bed(Q: 6 Sit to Stand (QC): 4 Toilet Transfer (QC): 4 Patient performed toileting hygiene IND. Weight Bearing Right Lower Extremity: Right Weight Bearing/Tolerated Left Lower Extremity: Left Weight Bearing/Tolerated Gait Training Does the Patient Walk?: Yes Distance: 80' Walk 10 feet (QC): 3 Walk 50 ft with 2 Turns(QC): 3 Gait Persons Needed: 1 Gait Assistive Device: FWW CGA for safety and patient needed help navigating walker. Wheelchair Training Does the Pt Use a Wheelchair?: No Exercises Supine Ex: Ankle pumps (10BLE), Heel Slides (5BLE), Straight leg raise (5BLE) Treatments Ambulation. Toilet transfer. Bed mobility. BLE Exercises. Assessment Patient was lethargic today and did not want to get out of bed but needed to get up and go to the bathroom. Patient soiled gown and kept apologizing. Once up and in the bathroom patient agreed to ambulation. During ambulation patient was shaky and couldn't navigate the walker on her own. PT Assisted Goals Assisted Goals PT Boat Outfitting Supervisor Goals Time Frame: May 11, 2019 Roll Left & Right (QC): 6 Sit to Lying (QC): 6 Lying-Sitting on Side/Bed(QC): 6 Sit to Stand (QC): 6 Chair/Fbt-gf-Yzklp Xfer(QC): 6 Does the Patient Walk: Yes Walk 10 feet (QC): 6 Walk 50ft with 2 Turns (QC): 6 Walk 150 ft (QC): 6 PT Plan Problem List Problem List: Activity Tolerance, Functional Strength, Safety, Balance, Gait, Transfer, Bed Mobility Treatment/Plan Treatment Plan: Continue Plan of Care Treatment Plan: Bed Mobility, Education, Functional Activity Marj, Functional Strength, Gait, Safety, Therapeutic Exercise, Transfers Treatment Duration: May 11, 2019 Frequency: 6 times per week Estimated Hrs Per Day: .25 hour per day Patient and/or Family Agrees t: Yes Safety Risks/Education Patient Education: Gait Training, Transfer Techniques Teaching Recipient: Patient, Significant Other Teaching Methods: Discussion Response to Teaching: Reinforcement Needed Time/GCodes Time In: 1128 Time Out: 1143 Total Billed Treatment Time: 15 Total Billed Treatment 1 visit GT (15 minutes) PAULETTE OCAMPO PT May 05, 2019 12:08
--- NOTE | 2019-05-05 12:09 | Occupational Ther Daily Note ---
OT Current Status-Daily Note Subjective Pt alert, sitting up in bed. Pt and agrees to therapy. Pt anxious about seeing physician and wanted to wait until she sees the doctor to take a shower. Then after seeing physician and SW pt's anxiety increased and pt declined shower. Mental Status/Objective Patient Orientation: Person, Place, Time, Situation Attachments: IV ADL-Treatment Therapy Code Descriptions/Definitions Functional [place] Measure: 0=Not Assessed/NA 4=Minimal Assistance 1=Total Assistance 5=Supervision or Setup 2=Maximal Assistance 6=Modified [place] 3=Moderate Assistance 7=Complete IndependenceSCALE: Activities may be completed with or without assistive devices. 2-Ceorhnbwyp-iwtnhlm completes the activity by him/herself with no assistance from a helper. 5-Set-up or Clean-up Assistance-helper sets up or cleans up; patient completes activity. [place] assists only prior to or following the activity. 4-Supervision or Touching Assistance-helper provides verbal cues and/or touching/steadying and/or contact guard assistance as patient completes activity. Assistance may be provided throughout the activity or intermittently. 3-Partial/Moderate Assistance-helper does LESS THAN HALF the effort. [place] lifts, holds or supports trunk or limbs, but provides less than half the effort. 2-Substantial/Maximal Assistance-helper does MORE THAN HALF the effort. [place] lifts or holds trunk or limbs and provides more than half the effort. 6-Ubmzjgojy-kflwmy does ALL the effort. Patient does none of the effort to complete the activity. Or, the assistance of 2 or more helpers is required for the patient to complete the activity. If activity was not attempted, code reason: 7-Patient Refused. 9-Not Applicable-not attempted and the patient did not perform the activity before the current illness, exacerbation or injury. 10-Not Attempted due to Environmental Limitations-(lack of equipment, weather restraints, etc.). 88-Not Attempted due to Medical Conditions or Safety Concerns. Other Treatment Discussed with pt and about modifications, strategies and AE during pt's episodes. Pt and voiced understanding of different strategies, though declined any equipment. stated that he helps pt during those times. After therapy, pt lying in bed with call light/phone in reach. All needs met in room. OT Jail Goals Sheet Metal Shop Foreman Goals Time Frame: May 11, 2019 Eating (QC): 6 Oral Hygiene (QC): 6 Toileting Hygiene (QC): 6 Shower/Bathe Self (QC): 6 Upper Body Dressing (QC): 6 Lower Body Dressing (QC): 6 On/Off Footwear (QC): 6 Additional Goals: 1-Demonstrate ADL Tasks, 2-Verbalize Understanding, 3- ImproveStrength/Marj 1=Demonstrate adherence to instructed precautions during ADL tasks. 2=Patient will verbalize/demonstrate understanding of assistive devices/modifications for ADL. 3=Patient will improve strength/tolerance for activity to enable patient to perform ADL's. OT Education/Plan Problem List/Assessment Assessment: Decreased Activ Tolerance Discharge Recommendations Plan/Recommendations: Continue POC Treatment Plan/Plan of Care Patient would benefit from OT for education, treatment and training to promote independence in ADL's, mobility, safety and/or upper extremity function for ADL's. Plan of Care: ADL Retraining, Caregiver Training, Functional Mobility, UE Funct Exercise/Act Treatment Duration: May 11, 2019 Frequency: 5 times per week Estimated Hrs Per Day: .25 hour per day Agreement: Yes Rehab Potential: Fair Time/GCodes Start Time: 10:10 Stop Time: 10:21 Total Time Billed (hr/min): 11 Billed Treatment Time 1 visit-FA 1 (11 min) BAN DRAKE May 05, 2019 12:09
--- NOTE | 2019-05-05 12:32 | NUR ---
Pt not feeling up to Communion but received. Cotton Baler also offered prayer.
--- NOTE | 2019-05-05 14:32 | Progress Note - Hospitalist ---
Subjective HPI/CC On Admission Date Seen by Provider: May 05, 2019 Time Seen by Provider: 14:25 Patient is a 68-year-old female with a past medical history of relapsing altered mental status who presented to the emergency department due to a recurrent episode. She is able to provide some history feels she cannot fully explain her sentences and will first to her for most details. Her symptoms started roughly 3 years ago. She followed with Dr. Woods at the time and had extensive workup done but has since transferred to [facility] and continued to have further workup done. He states she has had a lumbar puncture, sleep study, multiple MRIs, and countless blood tests without any answer to the etiology of her symptoms. She states that she can feel her episodes coming on. Her hands and feet get very cold and shaky. She becomes very weak. She has difficulty forming sentences. She was just increased on her Ambien last month and her symptoms have worsened in that timeframe. I did call and discuss this with [facility] who states she has same sleep medicine and neurology without any answers. She reports she is feeling better today and about 50 percent of her baseline. We did discuss options for workup and treatment but that etiology would likely not be found while inpatient. We did discuss possible psychiatric etiologies. She is hesitant at this time to pursue psychiatric evaluation. Subjective/Events-last exam Pt reports feeling better this am and at beginning of the conversation was able to speak in full sentences without difficulty. Discussed with her, her , and regarding plan of care and the denial from [facility]. Patient agreeable to referral to [facility] but immediately upon agreement she appeared to tense up and her sentences became very short and she was unable to complete a sentence. I did point this out to her and her and identified it as anxiety which they both agreed that was contributing to her symptoms. Focused Exam Lactate Level 05/03/19 14:37: Lactic Acid Level 0.86 Objective Exam Vital Signs Vital Signs Date Time Temp Pulse Resp B/P (MAP) Pulse Ox O2 Delivery O2 Flow Rate FiO2 05/05/19 08:05 Room Air 05/05/19 08:00 36.8 68 18 142/85 (104) 92 Capillary Refill : Less Than 3 Seconds General Appearance: No Apparent Distress, Anxious Respiratory: Lungs Clear, No Respiratory Distress Cardiovascular: Regular Rate, Rhythm, No Murmur Neurologic/Psychiatric: Alert, Oriented x3 Results/Procedures Lab Patient resulted labs reviewed. Imaging: Reviewed Imaging Report Assessment/Plan Assessment and Plan Assess & Plan/Chief Complaint AMS- resolved Generalized Weakness BIJAL - CT negative for acute CVA - Offered MRI and pt declined at this time - Will consult PT/OT - Discussed with her PCNP and pt and trialed short acting stimulant in AM to help with sleep wake cycle- informed patient this would only be a short term measure, she is agreeable - Discussed with pt, , and PCNP regarding inpatient psych admission for BIJAL - Screened by [facility] and they declined and recommended ambien detox - Referral sent to [facility] but declined, will continue to attempt placement for psych treatment if able but could DC home with family support for outpatient placement - BIJAL score of 18 and likely main source of her "episodes" - Hold AM ambien, DC ER Ambien Pt taking 5mg Ambien at 2100 and 0300, along with 12.5mg Ambien ER at 2100 and 5mg Ambien in AM for total of 27.5mg Ambien per day at home Diagnosis/Problems Diagnosis/Problems (1) Generalized anxiety disorder Status: Acute (2) Ambien use disorder, mild (3) Altered mental status Status: Acute Qualifiers: Altered mental status type: transient alteration of awareness Qualified Codes: R40.4 - Transient alteration of awareness Clinical Quality Measures DVT/VTE Risk/Contraindication: Risk Factor Score Per Nursin RFS Level Per Nursing on Admit: 4+=Very High EITAN GARNETT MD May 05, 2019 14:32
[2019-05-05] MEDS: hydrOXYzine (ATARAX) 10 MG TAB PO PRN ×2 (14:52→21:26)
--- NOTE | 2019-05-05 15:10 | NUR ---
CM/SS visited with the patient to continue discharge planning. [facility] did an assessment on the patient today. After the assessment the worker Alayna called and informed this CM/SS that they are declining the patient due to not meeting criteria. The patient and her were informed about this decision. CM/SS spent a lot of time with the patients to figure out next steps. The patients wanted information on [facility] and gave verbal approval for CM/SS to send a referral via fax ([phone]). [facility] information this SS that the patient did not meet the criteria for inpatient services based on medical capability. SS informed the family of this denial. They gave SS a verbal consent to fax ([phone]) to [facility]. [place] called and denied the patient due to not meeting the criteria and they believe she should be in a full medical hospital for ambien detox. One referral has been sent to [facility] via fax ([phone]). Still awaiting an answer. Will continue to follow.
--- NOTE | 2019-05-05 16:11 | NUR ---
CM/SS called Walker Zbigniew from [facility] to see if patient would be appropriate to be screened. Walker stated that she would not be due to her willingness to go somewhere. He suggested an out patient behavioral health service for the patient. CM/SS spoke with the patient again this evening about possible plans for tomorrow.
[2019-05-05] MEDS: MELATONIN 3 MG TABLET PO SCH (21:26)
[2019-05-05] MEDS: ONDANSETRON 4 MG/2 ML (SDV) Z0FRAN IV PRN (21:26)
[2019-05-05] MEDS: MAGNESIUM OXIDE (MAG-OX)400 MG TAB PO SCH (21:26)
[2019-05-05] MEDS: ZOLPIDEM 5 MG (AMBIEN) TAB PO SCH (21:26)
[2019-05-06] MEDS ORDERED: ZOLPIDEM 5 MG (AMBIEN) TAB ONE (03:07)
--- NOTE | 2019-05-06 03:15 | NUR ---
0245- CHECKED TO SEE IF PATIENT WAS ASLEEP. SHE WAS WIDE AWAKE. SO, NEXT STEP WAS TO GIVE AMBIEN 5 MG PER DOCTOR MARIOLA'S ORDERS. 0250- TRIED TO PULL AMBIEN FROM THE OMNICELL. COULD NOT LOCATE PATIENT IN THE OMNICELL. 0255- TRIED CALLING EPHARMACY TO SEE IF THERE WAS AN ISSUE ON THEIR END OR IF THERE WAS A WAY TO FIX THE ISSUE. THERE WAS NOTHING THAT THEY COULD DO ON THEIR END BECAUSE IT HAD THE PATIENT'S INFORMATION AND MEDS ON THEIR END. 0259- ASKED FEED PROJECT ENGINEER ON FLOOR TO ASSIST WITH SAID ISSUE WITH NO SUCCESS. 0302- CALLED PROPULSION GENERATOR REPAIRER FOR ASSISTANCE. PROPULSION GENERATOR REPAIRER SAID HE WOULD TRACK DOWN THE MEDICATION AND BRING IT TO THE FLOOR. 0315- AMBIEN 5MG BROUGHT TO THE FLOOR BY PROPULSION GENERATOR REPAIRER AT THIS TIME. 0317- MEDICATION GIVEN TO PATIENT.
[2019-05-06] MEDS: ZOLPIDEM 5 MG (AMBIEN) TAB PO SCH (03:17)
[2019-05-06 03:40] VITALS: BP 146/78
[2019-05-06 08:00] VITALS: BP 175/85
--- NOTE | 2019-05-06 09:21 | Diagnostic Imaging Report ---
CLINICAL INDICATION: Altered mental status since morning. Non-activation. Rule out stroke. EXAM: Axial CT scan of the brain performed without IV contrast. COMPARISON: Axial CT scan of the brain performed without IV contrast dated 05/03/2019. FINDINGS: There is no evidence of acute cerebral infarct, intracranial hemorrhage, or gross mass effect. The brain parenchymal volume appears appropriate for patient's age. Again seen subtle patchy areas of low attenuation white matter changes involving both cerebral hemispheres likely representing chronic small vessel ischemic disease. There is normal [place]-white matter distinction. There is no significant midline shift or herniation. There is no evidence of hydrocephalus. The basal cisterns are unremarkable. The skull, extracranial soft tissue, and orbits are unremarkable. The paranasal sinuses are unremarkable. Temporal bones show no significant abnormality. IMPRESSION: Stable CT scan of the brain with no evidence of acute intracranial process. Results of this were discussed with Dr. Noemi Walter via the telephone on 05/06/2019 at 0915 hours. Dictated by: Dictated on workstation # [id number]
--- NOTE | 2019-05-06 09:33 | Progress Note - Hospitalist ---
Subjective HPI/CC On Admission Date Seen by Provider: May 06, 2019 Time Seen by Provider: 08:25 Patient is a 68-year-old female with a past medical history of relapsing altered mental status who presented to the emergency department due to a recurrent episode. She is able to provide some history feels she cannot fully explain her sentences and will first to her for most details. Her symptoms started roughly 3 years ago. She followed with Dr. Woods at the time and had extensive workup done but has since transferred to [facility] and continued to have further workup done. He states she has had a lumbar puncture, sleep study, multiple MRIs, and countless blood tests without any answer to the etiology of her symptoms. She states that she can feel her episodes coming on. Her hands and feet get very cold and shaky. She becomes very weak. She has difficulty forming sentences. She was just increased on her Ambien last month and her symptoms have worsened in that timeframe. I did call and discuss this with [facility] who states she has same sleep medicine and neurology without any answers. She reports she is feeling better today and about 50 percent of her baseline. We did discuss options for workup and treatment but that etiology would likely not be found while inpatient. We did discuss possible psychiatric etiologies. She is hesitant at this time to pursue psychiatric evaluation. Subjective/Events-last exam Called to beside regarding altered mental status. two nurses at bedside and performing NIH. Patient mumbling incoherently and does not respond to any verbal stimuli. Attempted sternal rub with minimal response. Sent for stat CT head to rule out stroke. Focused Exam Lactate Level 05/03/19 14:37: Lactic Acid Level 0.86 Objective Exam Vital Signs Vital Signs Date Time Temp Pulse Resp B/P (MAP) Pulse Ox O2 Delivery O2 Flow Rate FiO2 05/06/19 03:40 36.4 75 20 146/78 (100) 96 Room Air Capillary Refill : Less Than 3 Seconds General Appearance: Other (mumbling, unresponsive) HEENT: PERRL/EOMI Cardiovascular: Regular Rate, Rhythm, No Murmur Gastrointestinal: Normal Bowel Sounds, Soft Neurologic/Psychiatric: No Facial Droop; Motor Weakness (does not independently move either leg or arm, arms held directly above head and let go and arm falls down to her side and does not strike her face) Results/Procedures Lab Patient resulted labs reviewed. Imaging: Reviewed Imaging Report Assessment/Plan Assessment and Plan Assess & Plan/Chief Complaint AMS- Generalized Weakness BIJAL - CT negative for acute CVA - Repeat CT Head negative again today, MRI ordered - Discussed with Stroke Neurology at [facility] who believes presentation to be psychiatric in origin - Offered MRI on admission and pt had declined originally but now agreeable - PT/OT - Discussed with her PCNP on admission and pt and trialed short acting stimulant in AM to help with sleep wake cycle- informed patient this would only be a short term measure, she is agreeable - Discussed with pt, , and PCNP regarding inpatient psych admission for BIJAL - Screened by [facility] and they declined and recommended ambien detox - Referral sent to [facility] but declined, will continue to attempt placement for psych treatment if able but could DC home with family support for outpatient placement - BIJAL score of 18 and likely main source of her "episodes" - Hold AM ambien, DC ER Ambien Pt taking 5mg Ambien at 2100 and 0300, along with 12.5mg Ambien ER at 2100 and 5mg Ambien in AM for total of 27.5mg Ambien per day at home Critical Care CC TIME : Critical Care Start Date: May 06, 2019 Critical Care Start Time: 08:25 Stop date: May 06, 2019 Stop Time: 09:20 Diagnosis/Problems Diagnosis/Problems (1) Generalized anxiety disorder Status: Acute (2) Ambien use disorder, mild (3) Altered mental status Status: Acute Qualifiers: Altered mental status type: transient alteration of awareness Qualified Codes: R40.4 - Transient alteration of awareness Clinical Quality Measures DVT/VTE Risk/Contraindication: Risk Factor Score Per Nursin RFS Level Per Nursing on Admit: 4+=Very High EITAN GARNETT MD May 06, 2019 09:33
--- NOTE | 2019-05-06 09:55 | Physical Therapy Progress Note ---
Therapy Progress Note Patient on hold. Patient is having medical issues, currently headed down to have a CT scan for a suspected stroke per nurse. ROCIO MANCILLA PT May 06, 2019 09:55
--- NOTE | 2019-05-06 09:59 | NUR ---
PATIENTS FAMILY REPORTS PATIENT LESS ALERT AND MORE CONFUSED. I DID AN NIH SCALE AND FOUND THE PATIENT SCORED A 25. PATIENT WAS ALERT BUT UNABLE TO ANSWER QUESTIONS. PATIENT LOOKED AT ME WHEN ASKED BUT COULD NOT PERFORM ANY OF THE TESTS. I ASKED MARIANNE GAYTAN TO ALSO ASSESS. WE THEN CALLED DR. GARNETT WHO CAME IMMEDIATELY. ORDERED CT SCAN AND THEN MRI. ACCORDING TO SHIFT REPORT EVELIA, PATIENT'S FUNCTIONALITY WAS UP AND DOWN AND DR'S THINKING IT WAS TICK BITE RELATED. PATIENT HAD TREMORS AT ADMISSION
--- NOTE | 2019-05-06 10:06 | NUR ---
PATIENTS VITALS WERE TAKEN AND WERE WNL ALSO BLOOD SUGAR WAS TAKEN AND BOB 124.
--- NOTE | 2019-05-06 10:22 | NUR ---
CM/SS visited with the patient for follow up. CM/SS called [facility] in [place] who stated they usually take 2-3 days to look over the file and determine if they are going to accept a patient. The worker reports that they should be contacting the family first and if they can't get a hold of them they will contact SS next. CM/SS informed the patients spouse of this and he verbalized understanding. The patients was in bed having an "episode" and didn't talk to SS while in the room but the patient is undergoing further testing to determine discharge. Will continue to follow.
--- NOTE | 2019-05-06 10:43 | Diagnostic Imaging Report ---
CLINICAL INDICATION: Patient with altered mental status since this morning. Rule out stroke. Patient has history of being nonverbal. Exam: MRI of the brain performed without IV contrast. Sequences include axial DWI, ADC map, axial T2, axial FLAIR, axial T1, axial gradient echo, and sagittal T1. Comparison: Head CT without contrast dated 05/06/2019. MRI of the brain performed without contrast dated 03/25/2019. Findings: There is no interval evidence of acute cerebral infarct, intracranial hemorrhage, or gross mass effect. The brain parenchymal volume appears appropriate for patient's age. Stable small focal and patchy areas of high T2 signal white matter changes involving both cerebral hemispheres. There is normal medina-white matter distinction. There is no significant midline shift or herniation. The [place] vascular structures show no gross abnormality as visualized. The pituitary gland, sella, and suprasellar regions are unremarkable as visualized. There is no evidence of hydrocephalus. The basal cisterns are unremarkable. The skull, extracranial soft tissue, and orbits are unremarkable. There is mild ethmoid sinus mucosal thickening which is not significantly changed. Temporal bones show no significant abnormality. IMPRESSION: 1: Stable MRI of the brain with no evidence of acute intracranial process. There is no interval acute cerebral infarct or intracranial hemorrhage. 2: Stable age-related brain parenchymal changes. Dictated by: Dictated on workstation # [id number]
[2019-05-06 12:00] VITALS: BP 179/86
--- NOTE | 2019-05-06 13:49 | NUR ---
PATIENT WAS OFF FLOOR FOR TESTS THIS AM AND IN CONSULTATION WITH AND ARIELLE. SHE IS HERE OBSERVATION PATIENT AND HAS FALLEN OFF THE MEDICATION MACHINE. I CALLED PHARMACY AND THEY ARE REPLACING HER IN THE MACHINE. MEDS WILL BE PASSED WHEN ACCESSIBLE
--- NOTE | 2019-05-06 13:57 | Occupational Ther Daily Note ---
OT Current Status-Daily Note Subjective Pt alert, lying in bed. Daughter and in room. Pt required encouragement from STEPHENSON and family to take shower. No c/o pain. Mental Status/Objective Patient Orientation: Person, Place, Time, Situation Attachments: IV ADL-Treatment Pt agrees to shower. Pt is able to complete shower standing up without LOB. Pt able to complete lower body dressing (footwear), independently. Pt completed oral care, independently. Pt donned/doffed hospital gown, independently. Pt able to set up own meal and use regular utensils. Pt retrieved grooming supplies from suitcase, independently. Pt has met all OT goals, discharge OT services. After therapy, pt sitting EOB with call light/phone in reach. SW in room. and daughter in room. All needs met in room. Therapy Code Descriptions/Definitions Functional [place] Measure: 0=Not Assessed/NA 4=Minimal Assistance 1=Total Assistance 5=Supervision or Setup 2=Maximal Assistance 6=Modified [place] 3=Moderate Assistance 7=Complete IndependenceSCALE: Activities may be completed with or without assistive devices. 6-Bzeldcudrv-tmqzwvs completes the activity by him/herself with no assistance from a helper. 5-Set-up or Clean-up Assistance-helper sets up or cleans up; patient completes activity. [place] assists only prior to or following the activity. 4-Supervision or Touching Assistance-helper provides verbal cues and/or touching/steadying and/or contact guard assistance as patient completes activity. Assistance may be provided throughout the activity or intermittently. 3-Partial/Moderate Assistance-helper does LESS THAN HALF the effort. [place] lifts, holds or supports trunk or limbs, but provides less than half the effort. 2-Substantial/Maximal Assistance-helper does MORE THAN HALF the effort. [place] lifts or holds trunk or limbs and provides more than half the effort. 5-Hsobzzbki-nxkgdn does ALL the effort. Patient does none of the effort to complete the activity. Or, the assistance of 2 or more helpers is required for the patient to complete the activity. If activity was not attempted, code reason: 7-Patient Refused. 9-Not Applicable-not attempted and the patient did not perform the activity before the current illness, exacerbation or injury. 10-Not Attempted due to Environmental Limitations-(lack of equipment, weather restraints, etc.). 88-Not Attempted due to Medical Conditions or Safety Concerns. Eating (QC): 6 Oral Hygiene (QC): 6 Shower/Bathe Self (QC): 6 Lower Body Dressing (QC): 6 On/Off Footwear: 6 Toileting Hygiene (QC): 6 (Pt completes independently) Toilet Transfer (QC): 6 (Pt completes independently) OT Correction Goals Chief Radiologic Technologist Goals Time Frame: May 11, 2019 Eating (QC): 6 (met) Oral Hygiene (QC): 6 (met) Toileting Hygiene (QC): 6 (met) Shower/Bathe Self (QC): 6 (met) Upper Body Dressing (QC): 6 (met) Lower Body Dressing (QC): 6 (met) On/Off Footwear (QC): 6 (met) Additional Goals: 1-Demonstrate ADL Tasks, 2-Verbalize Understanding, 3- ImproveStrength/Marj 1=Demonstrate adherence to instructed precautions during ADL tasks. 2=Patient will verbalize/demonstrate understanding of assistive devices/modifications for ADL. 3=Patient will improve strength/tolerance for activity to enable patient to perform ADL's. OT Education/Plan Problem List/Assessment Assessment: No Skilled OT Needs ID'd Discharge Recommendations Plan/Recommendations: Discharge/Goals Met Treatment Plan/Plan of Care Patient would benefit from OT for education, treatment and training to promote independence in ADL's, mobility, safety and/or upper extremity function for ADL's. Plan of Care: ADL Retraining, Caregiver Training, Functional Mobility, UE Funct Exercise/Act Treatment Duration: May 11, 2019 Frequency: 5 times per week Estimated Hrs Per Day: .25 hour per day Agreement: Yes Rehab Potential: Fair Time/GCodes Start Time: 13:05 Stop Time: 13:30 Total Time Billed (hr/min): 25 Billed Treatment Time 1 visit-ADL 2 (25 min) BAN DRAKE May 06, 2019 13:57
[2019-05-06] MEDS ORDERED: HYDR-700 PO (14:01)
--- NOTE | 2019-05-06 14:04 | Discharge Inst-Simple/Standard ---
Discharge Inst-Standard Patient Instructions/Follow Up Plan of Care/Instructions/FU: please continue to take her medications as written. Please follow up with [facility] this week. Please follow-up with the outpatient mental health resources and inpatient resources such as [facility] that we have discussed in the hospital. Activity as Tolerated: Yes Discharge Diet: No Restrictions Return to The Hospital For: Chest pain, shortness of breath, difficulty breathing, confusion, if you feel you are getting worse. Planned Outpatient Orders/Ref. Pneu Vac Indicated: Yes EITAN GARNETT MD May 06, 2019 14:04
--- NOTE | 2019-05-06 14:08 | D/C HH Face to Face Order ---
D/C Face to Face Orders Instructions for Patient Via [facility], Patient Instructions/FollowUp: Please continue to take your medications as written. Please follup with your PCP in the next week. Physician to follow Patient: Elisa Kaur DNP Discharge Diet for Home: No Restrictions Patient Data-Allergies,Ht & Wt Patient Allergies: Coded Allergies: clarithromycin (Verified Allergy, Unknown, 11/23/16) codeine (Verified Allergy, Unknown, 11/23/16) morphine (Unverified Allergy, Unknown, 11/23/16) Uncoded Allergies: STEROIDS (Allergy, Unknown, 08/13/08) Height (Feet): 5 Height (Inches): 4.00 Weight (Pounds): 132 Weight (Ounces): 8.0 Home Health Need/Face to Face Date of Face to Face: May 06, 2019 Clinical Findings: Generalized weakness and fatigue I have seen Pt wojv-bg-ultu: Yes Discharged To: Home Diagnosis/Conditions: Generalized anxiety disorder, panic attacks Patient is Homebound due to: CognItive deficits, Lauren fall risk due to instabilty Homebound Status Due to the above stated illness, injury or surgical procedure (medical condition or diagnosis) and associated clinical findings, the patient is homebound because of his/her inability to leave home except with aid of a supportive device and/or person AND leaving the home requires a considerable and taxing effort or is medically contraindicated. Pt req the following assistanc: Aid of another person Home Health Nursing Orders Home Health Services Order: Nursing Services, Streaming Media Specialist-Evaluate & Treat, Physical Therapy-Evaluate & Treat Home Health Infusion Therapy Line Start Date: May 03, 2019 Certify Stmt I certify that this patient is under my care and that I, a nurse practitioner or a physician; a operations assistant working with me, had a face to face encounter that - meets the physician face to face encounter requirements with this patient as dated. EITAN GARNETT MD May 06, 2019 14:08
[2019-05-06] MEDS: LORATADINE (CLARITIN) 10 MG TAB PO SCH (14:26)
[2019-05-06] MEDS: MULTIVIT W/MINERALS TAB (THERAGRAN M) PO SCH (14:26)
--- NOTE | 2019-05-06 14:27 | NUR ---
CM/SS visited with family multiple times today regarding discharge planning. The patients has chosen to try home health first before considering a skilled nursing placement. The family was provided a Patient Preference Form. They decided on [facility] to start with. Home Health: [facility]. A referral was made via phone call and fax to the agency who is working on getting her set up. Mine from [facility] states it will probably be able to start over the weekend. CM/SS informed [facility] of the patients "episodes" that is believed to be severe anxiety. They have information about nursing facilities in the area if they are wanting to business change manager. A private customer care assistant list was provided to the patient and the . No other concerns at this time.
--- NOTE | 2019-05-06 15:21 | Physical Therapy Daily Note ---
PT Daily Note-Current Subjective Patient is agreeable to therapy at this time. Patient is able to communicate and carry on a conversation at this time. Patient reports no pain at this time and states that she is going home today. Appearance Patient in chair with bedside table and call light within reach. Family present. Mental Status Patient Orientation: Person Transfers SCALE: Activities may be completed with or without assistive devices. 3-Zptwdorqbi-tllyvvs completes the activity by him/herself with no assistance from a helper. 5-Set-up or Clean-up Assistance-helper sets up or cleans up; patient completes activity. [place] assists only prior to or following the activity. 4-Supervision or Touching Assistance-helper provides verbal cues and/or touching/steadying and/or contact guard assistance as patient completes activity. Assistance may be provided throughout the activity or intermittently. 3-Partial/Moderate Assistance-helper does LESS THAN HALF the effort. [place] lifts, holds or supports trunk or limbs, but provides less than half the effort. 2-Substantial/Maximal Assistance-helper does MORE THAN HALF the effort. [place] lifts or holds trunk or limbs and provides more than half the effort. 1-Igqiaimqy-zeclct does ALL the effort. Patient does none of the effort to complete the activity. Or, the assistance of 2 or more helpers is required for the patient to complete the activity. If activity was not attempted, code reason: 7-Patient Refused. 9-Not Applicable-not attempted and the patient did not perform the activity before the current illness, exacerbation or injury. 10-Not Attempted due to Environmental Limitations-(lack of equipment, weather restraints, etc.). 88-Not Attempted due to Medical Conditions or Safety Concerns. Sit to Stand (QC): 6 Chair/Eer-px-Tbqbr Xfer(QC): 4 (CGA for safety) Weight Bearing Right Lower Extremity: Right Weight Bearing/Tolerated Left Lower Extremity: Left Weight Bearing/Tolerated Gait Training Does the Patient Walk?: Yes Distance: 300' Walk 10 feet (QC): 4 Walk 50 ft with 2 Turns(QC): 4 Walk 150 ft (QC): 4 Gait Persons Needed: 1 Gait Assistive Device: None CGA for safety. Patient takes small steps with a narrow RADHA. At times patient walks in a tandem pattern. Wheelchair Training Does the Pt Use a Wheelchair?: No Treatments Transfers. Ambulation. Assessment Current Status: Fair Progress Patient was unsteady during ambulation and walked with a narrow RADHA, at times in a tandem pattern. As patient fatigued her step length got shorter and gait speed decreased. At times patient crossed her feet during ambulation. Patient refused using the walker for ambulation at this time. PT Wrong Address Clerk Goals Prison Goals PT Wrong Address Clerk Goals Time Frame: May 11, 2019 Roll Left & Right (QC): 6 Sit to Lying (QC): 6 Lying-Sitting on Side/Bed(QC): 6 Sit to Stand (QC): 6 Chair/Cpp-gv-Osjud Xfer(QC): 6 Does the Patient Walk: Yes Walk 10 feet (QC): 6 Walk 50ft with 2 Turns (QC): 6 Walk 150 ft (QC): 6 PT Plan Problem List Problem List: Activity Tolerance, Functional Strength, Safety, Balance, Gait, Transfer, Bed Mobility, ROM Treatment/Plan Treatment Plan: Continue Plan of Care Treatment Plan: Bed Mobility, Education, Functional Activity Marj, Functional Strength, Gait, Safety, Therapeutic Exercise, Transfers Treatment Duration: May 11, 2019 Frequency: 6 times per week Estimated Hrs Per Day: .25 hour per day Patient and/or Family Agrees t: Yes Safety Risks/Education Patient Education: Gait Training, Correct Positioning, Safety Issues Teaching Recipient: Patient Teaching Methods: Demonstration, Discussion Response to Teaching: Reinforcement Needed Time/GCodes Time In: 1505 Time Out: 1515 Total Billed Treatment Time: 10 Total Billed Treatment 1 visit GT (10 minutes) ROCIO MANCILLA PT May 06, 2019 15:21
--- NOTE | 2019-05-06 15:39 | NUR ---
PATIENT IS EATING AND DRINKING AND AMBULATING HALLWAYS
[2019-05-06 16:17] VITALS: BP 137/81
== END 2019-05-06 16:30 | disposition home health service (06) ==
LOC: EDUNIT# 14:30 → ER 14:31 → 4TH 17:00
PROVIDERS: ADMIT Internal Medicine; ATTEND Internal Medicine
DX: R40.4 Transient alteration of awareness (principal); R41.82 Altered mental status, unspecified; R53.1 Weakness; R13.12 Dysphagia, oropharyngeal phase; K59.09 Other constipation; G43.909 Migraine, unspecified, not intractable, without status migrainosus; E03.9 Hypothyroidism, unspecified; F41.9 Anxiety disorder, unspecified; F13.90 Sedative, hypnotic, or anxiolytic use, unspecified, uncomplicated; Z88.5 Allergy status to narcotic agent; Z88.1 Allergy status to other antibiotic agents; Z88.8 Allergy status to other drugs, medicaments and biological substances; Z79.899 Other long term (current) drug therapy; Z90.710 Acquired absence of both cervix and uterus
CPT/HCPCS: 36415; 51702; 70450; 70551; 71045; 80053; 80061; 80306; 81000; 82805; 82962; 83605; 84443; 84484; 85025; 85379; 85610; 85730; 86141; 87040; 93005; 93041; 96360; 96361; G0378

== ENCOUNTER 2020-12-16 19:03 | Emergency (ER) | payer MEDICARE ==
[~2020-12-16] VITALS: Ht 167.7 cm; Wt 67.6 kg
[~2020-12-16 19:03] MED LIST changes: -ACET-2715 PO; +ACET-3075 PO; -CETI10TA20 PO; +CETI10TA49 PO; +HYDR-700 PO; +MAGN250T13 PO; +MELA1TAB51 PO; +MULT-567 PO; +NF-ZOL12.5 PO; +ZOLP10TA5 PO
[2020-12-16 19:08] VITALS: BP 173/92
--- NOTE | 2020-12-16 19:17 | ED Upper Extremity ---
General Chief Complaint: Upper Extremity Stated Complaint: FELL R WRIST PAIN Source: patient Exam Limitations: no limitations History of Present Illness Date Seen by Provider: Dec 16, 2020 Time Seen by Provider: 19:14 Initial Comments To ER with reports of right wrist pain after she fell at home. Denies any other injury. Just started Lamictal and Zyprexa on December 14. Also volunteers to me that she has spinal stenosis and does not want her back x-rayed though she did not injure it in the fall. 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 Onset: just prior to arrival Severity: moderate Pain/Injury Location: right wrist Method of Injury: fell Modifying Factors: Worse With Movement Allergies and Home Medications Allergies Coded Allergies: clarithromycin (Verified Allergy, Unknown, 11/23/16) codeine (Verified Allergy, Unknown, 11/23/16) morphine (Unverified Allergy, Unknown, 11/23/16) Uncoded Allergies: STEROIDS (Allergy, Unknown, 08/13/08) Patient Home Medication List Home Medication List Reviewed: Yes Cetirizine HCl (Zyrtec) 10 Mg Tablet, 10 MG PO DAILY, (Reported) Entered as Reported by: CHUCK CESPEDES on 11/24/15 1413 Hydroxyzine HCl (Hydroxyzine HCl) 25 Mg Tablet, 25 MG PO TID Prescribed by: EITAN GARNETT on 05/06/19 1401 Magnesium Oxide (Magnesium) 250 Mg Tablet, 2 TAB PO HS, (Reported) Entered as Reported by: FABY GONSALVES on 05/04/19 1156 Melatonin (Melatonin) 1 Mg Tablet, 1 MG PO HS, (Reported) Entered as Reported by: FABY GONSALVES on 05/04/19 1156 Multivitamin (Multivitamins) 1 Each Tablet, 1 TAB PO DAILY, (Reported) Entered as Reported by: FABY GONSALVES on 05/04/19 1156 Zolpidem Tartrate (Ambien) 10 Mg Tablet, 5 MG PO 0300,2100, (Reported) Entered as Reported by: TRA HALL on 05/10/16 1227 Review of Systems Constitutional: see HPI EENTM: see HPI Respiratory: no symptoms reported Cardiovascular: no symptoms reported Genitourinary: no symptoms reported Musculoskeletal: see HPI Skin: no symptoms reported Past Cnwotjb-Letsiz-Ptmemf Hx Immunizations Up To Date Tetanus Booster (TDap): Unknown PED Vaccines UTD: No Seasonal Allergies Seasonal Allergies: Yes (NOT SURE-MAY BE PART OF TIC BORN ILLNESS) Past Medical History Surgeries: Yes (FOOT SURGERY, HIATAL HERNIA REPAIR, ECTOPIC , WISDOM TEETH) Hysterectomy Respiratory: No Cardiac: Yes (HX ABLATION FOR A-FIB-DIDNT WORK, AFTER HIATAL HERNIA WENT AWAY) Neurological: Yes (TIC BORN ILLNESS-CAUSES TREMORS) Headaches /Migraines Reproductive Disorders: No 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, 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 Sexually Transmitted Disease: No HIV/AIDS: No Gastrointestinal: Yes Chronic Diarrhea Musculoskeletal: Yes (STENOSIS OF SPINE) Endocrine: Yes (TAKES THYROID MEDS TO HELP METABOLISM) Hypothyroidsim Loss of Vision: Bilateral Hearing Impairment: Denies Cancer: No Psychosocial: Yes Anxiety Integumentary: No Blood Disorders: Yes (TIC BORN ILLNESS) Adverse Reaction/Blood Tranf: No Family Medical History No Pertinent Family Hx Physical Exam Vital Signs Vital Signs - First Documented 12/16/20 19:08 Temp 36.5 Pulse 84 Resp 17 B/P (MAP) 173/92 (119) Pulse Ox 98 Capillary Refill : Height, Weight, BMI Height: 5'4.00" Weight: 132lbs. 8.0oz. 60.462424bs; 20.16 BMI Method:Estimated General Appearance: WD/WN, no apparent distress Neck: non-tender, full range of motion Respiratory: no respiratory distress, no accessory muscle use Gastrointestinal: normal bowel sounds, non tender Back: normal inspection Shoulder: normal inspection, non-tender Elbow/Forearm: normal inspection, non-tender Wrist: Yes normal inspection, Yes pain, Yes soft tissue tenderness Neurologic/Psychiatric: alert, normal mood/affect, oriented x 3 Skin: normal color, warm/dry Progress/Results/Core Measures Results/Orders My Orders Orders - CYRIL SINGER APRN Wrist, Right, 3 Views Or More (12/16/20 19:06) Vital Signs/I&O 12/16/20 19:08 Temp 36.5 Pulse 84 Resp 17 B/P (MAP) 173/92 (119) Pulse Ox 98 Departure Impression Primary Impression: Wrist sprain Disposition: 01 HOME, SELF-CARE Condition: Stable Departure-Patient Inst. Decision time for Depature: 19:34 Referrals: DARREL WEBSTER DO (PCP) Primary Care Physician ЕЛЕНА WEBSTER, MARINO (Family) Primary Care Physician Patient Instructions: Common Wrist Injuries Add. Discharge Instructions: 1. Splint as needed. When the pain subsides you can take it off. If pain persist in the next week follow-up with primary care for repeat imaging. All discharge instructions reviewed with patient and/or family. Voiced understanding. CYRIL SINGER CORPORATE DEVELOPMENT INTERN Dec 16, 2020 19:17
--- NOTE | 2020-12-16 19:32 | Diagnostic Imaging Report ---
EXAMINATION: Right wrist 3 or more views. REASON FOR EXAM: Fall. Right wrist pain. COMPARISON: None available. FINDINGS: There is no acute fracture or dislocation of the right wrist. There is normal alignment of the wrist and carpel bones. Degenerative changes are seen in the right wrist with joint space narrowing, marginal osteophytes and subcortical sclerosis. These findings are greatest at the right 1st CMC joint. No large joint effusion is seen in the right wrist. The surrounding soft tissues are unremarkable. IMPRESSION: No acute fracture or dislocation in the right wrist. Dictated by: Dictated on workstation # [id number]
== END 2020-12-16 19:47 | disposition home or self-care (01) ==
LOC: EDUNIT# 19:03 → ER 19:05
DX: S63.501A Unspecified sprain of right wrist, initial encounter (principal); F41.9 Anxiety disorder, unspecified; Z79.899 Other long term (current) drug therapy; W19.XXXA Unspecified fall, initial encounter; Y92.009 Unspecified place in unspecified non-institutional (private) residence as the place of occurrence of the external cause
CPT/HCPCS: 73110

== ENCOUNTER 2021-06-22 06:59 | Emergency (ER) | payer MEDICARE ==
[~2021-06-22] VITALS: Ht 167.7 cm; Wt 73.5 kg
--- NOTE | 2021-06-22 07:54 | ED Lower Extremity ---
General Chief Complaint: Lower Extremity Stated Complaint: RT LEG PAIN BEHIND KNEE Nursing Triage Note: PT AMB TO RM 6 WITH WITH COMPLAINT OF PAIN BEHIND RIGHT KNEE. STATES STARTED LAST NIGHT AROUND MIDNIGHT. DENIES INJURY. Source: patient Exam Limitations: no limitations History of Present Illness Date Seen by Provider: Jun 22, 2021 Time Seen by Provider: 07:16 Initial Comments This is 71-year-old woman presents to the emergency room accompanied by her with complaints about pain behind the right knee the lateral aspect. She denies any known injury. This pain seems to be intermittent or waxing and waning for quite some time. She has difficulty defining a timeframe. She has bilateral lower extremity edema that appears equal which is also a chronic problem. She has not yet seen a medical provider for this issue. Allergies and Home Medications Allergies Coded Allergies: clarithromycin (Verified Allergy, Unknown, 11/23/16) codeine (Verified Allergy, Unknown, 11/23/16) morphine (Unverified Allergy, Unknown, 11/23/16) Uncoded Allergies: STEROIDS (Allergy, Unknown, 08/13/08) Patient Home Medication List Home Medication List Reviewed: Yes Cetirizine HCl (Zyrtec) 10 Mg Tablet, 10 MG PO DAILY, (Reported) Entered as Reported by: CHUCK CESPEDES on 11/24/15 1413 Hydroxyzine HCl (Hydroxyzine HCl) 25 Mg Tablet, 25 MG PO TID Prescribed by: EITAN GARNETT on 05/06/19 1401 Magnesium Oxide (Magnesium) 250 Mg Tablet, 2 TAB PO HS, (Reported) Entered as Reported by: FABY GONSALVES on 05/04/19 1156 Melatonin (Melatonin) 1 Mg Tablet, 1 MG PO HS, (Reported) Entered as Reported by: FABY GONSALVES on 05/04/19 1156 Multivitamin (Multivitamins) 1 Each Tablet, 1 TAB PO DAILY, (Reported) Entered as Reported by: FABY GONSALVES on 05/04/19 1156 Zolpidem Tartrate (Ambien) 10 Mg Tablet, 5 MG PO 0300,2100, (Reported) Entered as Reported by: TRA HALL on 05/10/16 1227 Review of Systems Constitutional: no symptoms reported Cardiovascular: see HPI Musculoskeletal: see HPI Skin: no symptoms reported Psychiatric/Neurological: No Symptoms Reported Past Nigotck-Jfykas-Gywwup Hx Patient Social History Tobacco Use?: No Use of E-Cig and/or Vaping dev: No Substance use?: No Alcohol Use?: No Pt feels they are or have been: No Immunizations Up To Date Tetanus Booster (TDap): Unknown PED Vaccines UTD: No Seasonal Allergies Seasonal Allergies: Yes (NOT SURE-MAY BE PART OF TIC BORN ILLNESS) Past Medical History Surgeries: Yes (FOOT SURGERY, HIATAL HERNIA REPAIR, ECTOPIC , WISDOM TEETH) Hysterectomy Respiratory: No Cardiac: Yes (HX ABLATION FOR A-FIB-DIDNT WORK, AFTER HIATAL HERNIA WENT AWAY) Neurological: Yes (TIC BORN ILLNESS-CAUSES TREMORS) Headaches /Migraines Reproductive Disorders: 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, 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 Sexually Transmitted Disease: No HIV/AIDS: No Gastrointestinal: Yes Chronic Diarrhea Musculoskeletal: Yes (STENOSIS OF SPINE) Endocrine: Yes (TAKES THYROID MEDS TO HELP METABOLISM) Hypothyroidsim Loss of Vision: Bilateral Hearing Impairment: Denies Cancer: No Psychosocial: Yes Anxiety Integumentary: No Blood Disorders: Yes (TIC BORN ILLNESS) Adverse Reaction/Blood Tranf: No Family Medical History No Pertinent Family Hx Physical Exam Vital Signs Vital Signs - First Documented 06/22/21 07:15 Pulse 83 Resp 16 B/P (MAP) 144/98 (113) Pulse Ox 97 O2 Delivery Room Air Capillary Refill : Less Than 3 Seconds Height, Weight, BMI Height: 5'4.00" Weight: 132lbs. 8.0oz. 60.127279we; 26.00 BMI Method:Estimated General Appearance: WD/WN, no apparent distress HEENT: normal ENT inspection Cardiovascular: regular rate, rhythm, no edema Respiratory: lungs clear, normal breath sounds, no respiratory distress Hips: right hip normal range of motion, right hip no evidence of injury, right hip other (No pain with rotation) Legs: right leg non-tender, right leg normal inspection, right leg normal range of motion, right leg other (No calf tenderness, negative Homans) Knees: right knee normal range of motion, right knee pain, right knee soft tissue tenderness (Posterior lateral knee and popliteal fossa); bilateral knee swelling Ankles: right ankle non-tender; bilateral ankle swelling Feet: right foot non-tender; bilateral foot swelling; right foot other (Normal pedal pulse, capillary refill) Neurologic/Psychiatric: no motor/sensory deficits, alert, normal mood/affect Skin: normal color, warm/dry Progress/Results/Core Measures Results/Orders My Orders Orders - LUDWIN REDDING MD Us Venous Lower Ext Rt (06/22/21 07:16) Vital Signs/I&O 06/22/21 07:15 Pulse 83 Resp 16 B/P (MAP) 144/98 (113) Pulse Ox 97 O2 Delivery Room Air Blood Pressure Mean: 113 Progress Progress Note : Progress Note Ultrasound of the right lower extremity revealed no DVT. However, there was a small Khan's cyst identified. Patient was advised to take Tylenol. She reported she cannot take NSAIDs due to gastric pathologies and history of Milena fundoplication. She has been advised by surgeons in the past to avoid NSAIDs. As an alternative, I suggested she use topical lidocaine patches. Beyond that, I am deferring to the primary care team as she is on multiple medications that would potentially have a compounding of adverse effects if prescription pain medications are used. Contact information for multiple orthopedic providers was included in the discharge instructions. See discharge instructions for further discussion. Diagnostic Imaging Diagonstic Imaging: Ultrasound Plain Films/CT/US/NM/MRI: leg Comments Right lower extremity Doppler ultrasound discussed with roof service technician and report reviewed. See report below: NAME: KARLA CLAY [facility] REC#: [id number] PT STATUS: REG ER : 1950 PHYSICIAN: LUDWIN REDDING MD ADMIT DATE: 06/22/21/ER Draft Date of Exam:06/22/21 US VENOUS LOWER EXT RT PROCEDURE: US right lower extremity venous. TECHNIQUE: Multiple Real-time grayscale images were obtained over the right lower extremity in various projections. Additional spectral analysis and color Doppler duplex images were also obtained. INDICATION: Right leg pain. FINDINGS: There is no evidence of right lower extremity DVT. The right lower extremity deep venous system shows normal compressibility with normal response to augmentation and Valsalva. There appears to be a Khan's cyst in the popliteal fossa measuring 3.6 x 1.1 x 1.8 cm. IMPRESSION: 1. No evidence of right lower extremity DVT. 2. Khan's cyst. Dictated on workstation # [id number] Dict: 06/22/21 0830 Trans: 06/22/21 0837 [id number] Interpreted by: ANTHONY FREEMAN MD Departure Impression Primary Impression: Khan cyst Qualified Codes: M71.21 - Synovial cyst of popliteal space [Khan], right knee Disposition: 01 HOME, SELF-CARE Condition: Improved Departure-Patient Inst. Decision time for Depature: 08:40 Referrals: MARVIN CINTRON MD, TERRY D MD STEWART, JULIE A MD (PCP/Family) Primary Care Physician MARCO ANTONIO FORTUNE MD Patient Instructions: Khan's (Popliteal) Cyst Add. Discharge Instructions: You have a Khan's cyst behind your right knee. Seek consultation with an orthopedic surgeon for further recommendations on how to best treat this cyst. For pain you may take Tylenol (acetaminophen) up to 1000 mg every 6 hours as needed. Elevation and icing in 20-minute intervals may also help reduce pain. You may try topical pain reliever such as lidocaine patches purchased eumx-klv-qxclrab. Use per package instructions. If these measures are not hahn fficient for treating your pain, please discuss further treatment with your primary care provider. Prescription pain medications may impact your overall health, other medical conditions, or use of other medications. They should be used under the direction of your primary care provider. Call with questions or concerns. Return to the ER if you have worsening symptoms despite following these instructions. All discharge instructions reviewed with patient and/or family. Voiced understanding. Copy Copies To 1: MARTIN REZA MD, JOSHUA T MD Jun 22, 2021 07:54
--- NOTE | 2021-06-22 08:38 | Diagnostic Imaging Report ---
PROCEDURE: US right lower extremity venous. TECHNIQUE: Multiple Real-time grayscale images were obtained over the right lower extremity in various projections. Additional spectral analysis and color Doppler duplex images were also obtained. INDICATION: Right leg pain. FINDINGS: There is no evidence of right lower extremity DVT. The right lower extremity deep venous system shows normal compressibility with normal response to augmentation and Valsalva. There appears to be a Khan's cyst in the popliteal fossa measuring 3.6 x 1.1 x 1.8 cm. IMPRESSION: 1. No evidence of right lower extremity DVT. 2. Khan's cyst. Dictated by: Dictated on workstation # [id number]
[2021-06-22 09:00] VITALS: BP 135/88
[2021-06-26] MEDS ORDERED: ACHD5005 PO (11:47)
[2021-06-26] MEDS ORDERED: BACL10TA PO (11:47)
== END 2021-06-22 09:00 | disposition home or self-care (01) ==
LOC: EDUNIT# 06:59 → ER 07:07
DX: M71.21 Synovial cyst of popliteal space [Baker], right knee (principal)

== ENCOUNTER 2021-06-24 16:55 | Inpatient (IN) | payer OTHER, MEDICARE ==
[~2021-06-24] VITALS: Ht 167.7 cm; Wt 69.0 kg
[2021-06-24] MEDS ORDERED: ZIPRASIDONE 20 MG INJ (GEODON) VIAL IM ONE ×2 (17:15→18:00)
[2021-06-24] MEDS: WATER (STERILE) FOR INJ 10 ML BTL INJ SCH ×2 (17:25→18:01)
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
[2021-06-24] MEDS ORDERED: WATER (STERILE) FOR INJ 10 ML BTL INJ SCH ×2 (18:00→21:45)
[2021-06-24 18:30] LABS: BASOPHILS % (AUTO) 0 % (0-10); EOSINOPHILS % (AUTO) 1 % (0-10); HEMATOCRIT 41 % (35-52); HEMOGLOBIN 13.2 g/dL (11.5-16.0); LYMPHOCYTES # (AUTO) 1.1 10^3/uL (1.0-4.0); LYMPHOCYTES % (AUTO) 22 % (12-44); MEAN CORPUSCULAR HEMOGLOBIN 29 pg (25-34); MEAN CORPUSCULAR HGB CONC 32 g/dL (32-36); MEAN CORPUSCULAR VOLUME 89 fL (80-99); MONOCYTES # (AUTO) 0.4 10^3/uL (0.0-1.0); MONOCYTES % (AUTO) 8 % (0-12); NEUTROPHILS # (AUTO) 3.4 10^3/uL (1.8-7.8); NEUTROPHILS % (AUTO) 68 % (42-75); PLATELET COUNT 217 10^3/uL (130-400)
[2021-06-24 18:36] LABS: BILIRUBIN,URINE NEGATIVE (NEGATIVE); CLARITY,URINE CLEAR; COLOR,URINE YELLOW; GLUCOSE, URINE (UA) NEGATIVE (NEGATIVE); KETONES,URINE 1+ (NEGATIVE); LEUKOCYTE ESTERASE ,URINE NEGATIVE (NEGATIVE); NITRITE,URINE NEGATIVE (NEGATIVE); PROTEIN,URINE NEGATIVE (NEGATIVE)
[2021-06-24 18:43] LABS: BACTERIA,URINE NEGATIVE /HPF; SQUAMOUS EPITHELIAL CELL,UR RARE /HPF
[2021-06-24 18:44] LABS: CHLORIDE 109 MMOL/L (98-107); POTASSIUM 3.3 MMOL/L (3.6-5.0); SODIUM 144 MMOL/L (135-145)
[2021-06-24 18:45] LABS: CALCIUM 9.2 MG/DL (8.5-10.1)
[2021-06-24 18:46] LABS: GLUCOSE 90 MG/DL (70-105)
[2021-06-24 18:47] LABS: CARBON DIOXIDE 20 MMOL/L (21-32); TOTAL PROTEIN 6.3 GM/DL (6.4-8.2)
[2021-06-24 18:48] LABS: BILIRUBIN,TOTAL 0.6 MG/DL (0.1-1.0)
[2021-06-24 18:50] LABS: ALKALINE PHOSPHATASE 65 U/L (40-136); CREATININE SERUM 0.82 MG/DL (0.60-1.30); GFR ESTIMATED 77
[2021-06-24 18:51] LABS: BUN/CREATININE RATIO 16
[2021-06-24 18:52] LABS: ACETAMINOPHEN < 10 UG/ML (10-30); BAND NEUTROPHILS 3 %; BASOPHILS % (MANUAL) 0 %; EOSINOPHILS % (MANUAL) 1 %; LYMPHOCYTES % (MANUAL) 26 %; MONOCYTES % (MANUAL) 5 %; NEUTROPHILS % (MANUAL) 65 %; RBC MORPH NORMAL
[2021-06-24 18:53] LABS: ALANINE AMINOTRANSFERASE 23 U/L (0-55); SALICYLATE < 5.0 MG/DL (5.0-20.0)
[2021-06-24 18:56] LABS: AMPHETAMINE SCREEN, URINE NEGATIVE (NEGATIVE); BARBITURATE SCREEN URINE NEGATIVE (NEGATIVE); BENZODIAZEPINES SCREEN URINE NEGATIVE (NEGATIVE); CANNABINOID SCREEN, URINE NEGATIVE (NEGATIVE); COCAINE SCREEN URINE NEGATIVE (NEGATIVE); METHADONE STAT NEGATIVE (NEGATIVE); METHAMPHETAMINE SCREEN URINE S NEGATIVE (NEGATIVE); OPIATE SCREEN URINE NEGATIVE (NEGATIVE); OXYCODONE STAT NEGATIVE (NEGATIVE); PROPOXYPHENE STAT NEGATIVE (NEGATIVE); TRICYCLIC ANTIDEPRESSANTS SCRE NEGATIVE (NEGATIVE)
[2021-06-24] MEDS ORDERED: LACTATED RINGERS 1,000 ML IV ONE (19:00)
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
[2021-06-24] MEDS ORDERED: LORazepam INJ 2 MG/ML (ATIVAN) VIAL IVP ONE (19:30)
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
[2021-06-24] MEDS ORDERED: NALOXONE 0.4 MG/ML 1 ML (NARCAN) VIAL IV PRN (21:45)
[2021-06-24] MEDS ORDERED: LACTULOSE SYRUP 10GM/15ML (ENULOSE) 30ML UDC PO PRN (21:45)
[2021-06-24] MEDS ORDERED: ZIPRASIDONE 20 MG INJ (GEODON) VIAL IM PRN (21:45)
[2021-06-24] MEDS ORDERED: CALCIUM CARBONATE 500 MG (TUMS) TAB.CHEW PO PRN (21:45)
[2021-06-24] MEDS ORDERED: MILK OF MAGNESIA 400 MG/5 ML 30 ML UDC PO PRN (21:45)
[2021-06-24] MEDS ORDERED: LORazepam INJ 2 MG/ML (ATIVAN) VIAL IVP PRN (21:45)
[2021-06-24] MEDS ORDERED: BISACODYL 10 MG SUPP (DULCOLAX) PR PRN (21:45)
[2021-06-24] MEDS ORDERED: ONDANSETRON 4 MG (ZOFRAN) ORAL DISSOLVE TAB PO PRN (21:45)
[2021-06-24] MEDS ORDERED: diphenhydrAMINE 50 MG/ML INJ (BENADRYL) IVP PRN (21:45)
[2021-06-24] MEDS ORDERED: diphenhydrAMINE 25 MG TAB (BENADRYL) PO PRN (21:45)
[2021-06-24] MEDS ORDERED: polyethylene glycoL POWDER 17 GM (MIRALAX) PACK PO PRN (21:45)
[2021-06-24] MEDS ORDERED: ONDANSETRON 4 MG/2 ML (SDV) Z0FRAN IV PRN (21:45)
[2021-06-24] MEDS ORDERED: ANTACID SUSP 30 ML UDC (MYLANTA) PO PRN (21:45)
[2021-06-24] MEDS ORDERED: MELATONIN 3 MG TABLET PO PRN (21:45)
[2021-06-24] MEDS ORDERED: HYDROmorphone 2 MG/ML VIAL (DILAUDID) ONE (21:46)
[2021-06-24] MEDS ORDERED: NS IV 1000 ML 1,000 ML ONE (21:47)
[2021-06-24] MEDS ORDERED: LORazepam INJ 2 MG/ML (ATIVAN) VIAL ONE (21:47)
[2021-06-24] MEDS: HYDROmorphone 2 MG/ML VIAL (DILAUDID) IVP PRN (22:09)
[2021-06-24] MEDS: ENOXAPARIN 40 MG/0.4 ML (LOVENOX) SYR SC SCH (22:25)
[2021-06-25 04:42] LABS: BASOPHILS % (AUTO) 0 % (0-10); EOSINOPHILS # (AUTO) 0.1 10^3/uL (0.0-0.3); EOSINOPHILS % (AUTO) 2 % (0-10); HEMATOCRIT 39 % (35-52); HEMOGLOBIN 12.2 g/dL (11.5-16.0); LYMPHOCYTES # (AUTO) 0.9 10^3/uL (1.0-4.0); LYMPHOCYTES % (AUTO) 25 % (12-44); MEAN CORPUSCULAR HEMOGLOBIN 29 pg (25-34); MEAN CORPUSCULAR HGB CONC 32 g/dL (32-36); MEAN CORPUSCULAR VOLUME 91 fL (80-99); MEAN PLATELET VOLUME 10.1 fL (9.0-12.2); MONOCYTES # (AUTO) 0.4 10^3/uL (0.0-1.0); MONOCYTES % (AUTO) 11 % (0-12); NEUTROPHILS # (AUTO) 2.1 10^3/uL (1.8-7.8); NEUTROPHILS % (AUTO) 61 % (42-75); PLATELET COUNT 160 10^3/uL (130-400); WHITE BLOOD COUNT 3.5 10^3/uL (4.3-11.0)
[2021-06-25 04:53] LABS: ALBUMIN 3.5 GM/DL (3.2-4.5); POTASSIUM 3.4 MMOL/L (3.6-5.0)
[2021-06-25 04:54] LABS: CALCIUM 8.4 MG/DL (8.5-10.1)
[2021-06-25 04:55] LABS: TOTAL PROTEIN 5.5 GM/DL (6.4-8.2)
[2021-06-25 04:57] LABS: BILIRUBIN,TOTAL 0.7 MG/DL (0.1-1.0)
[2021-06-25 04:58] LABS: PHOSPHORUS 3.8 MG/DL (2.3-4.7)
[2021-06-25 04:59] LABS: CREATININE SERUM 0.76 MG/DL (0.60-1.30)
[2021-06-25 05:01] LABS: MAGNESIUM 1.9 MG/DL (1.6-2.4)
[2021-06-25] MEDS: HYDROmorphone 2 MG/ML VIAL (DILAUDID) IVP PRN (05:42)
[2021-06-25] MEDS ORDERED: KCL 20 MEQ TAB (K-DUR) PO SCH (06:00)
[2021-06-25] MEDS ORDERED: MAGNESIUM 1 GM/100 ML IVPB 100 ML IV SCH (06:00)
[2021-06-25] MEDS ORDERED: POTASSIUM CL 10MEQ/50ML IVPB 50 ML IV SCH (06:00)
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
[2021-06-25] MEDS: DOCUSATE SODIUM 100 MG (COLACE) CAP PO SCH ×2 (08:39→19:44)
[2021-06-25] MEDS: SENNOSIDES 8.6 MG (SENOKOT) TAB PO SCH ×2 (08:39→19:44)
[2021-06-25] MEDS: ACETAMINOPHEN 325 MG TABLET PO PRN (08:51)
[2021-06-25] MEDS ORDERED: KCL 20 MEQ TAB (K-DUR) PO ONE (09:00)
[2021-06-25] MEDS ORDERED: POTASSIUM CHLORIDE INJ 10 MEQ in NS IV 1000 ML 1,000 ML IV SCH (09:00)
[2021-06-25] MEDS ORDERED: THIAMINE INJECTION 100 MG, FOLIC ACID INJECTION 1 MG, VITAMIN MULTI INJECTION 10 ML, MA... IV SCH ×5 (09:00)
[2021-06-25] MEDS ORDERED: HYDROcodone/APAP 5 MG/325 MG (LORTAB) TAB PO PRN (12:00)
[2021-06-25] MEDS ORDERED: BACLOFEN 10 MG (LIORESAL) TAB PO PRN (12:00)
--- NOTE | 2021-06-25 17:58 | Diagnostic Imaging Report ---
EXAMINATION: Right hip unilateral 2 or 3 views (w/pelvis when done). HISTORY: Pain. COMPARISON: None available. FINDINGS: There is mild bilateral hip joint osteoarthritis. No acute fracture. Alignment is normal. IMPRESSION: Mild bilateral hip osteoarthritis without hip fracture. Dictated by: Dictated on workstation # [id number]
--- NOTE | 2021-06-25 18:01 | Diagnostic Imaging Report ---
EXAMINATION: Lumbosacral spine 2 or 3 views. HISTORY: Back pain. COMPARISON: None available. FINDINGS: There is mild L2-L3 and L3-L4 degenerative disc disease. Vertebral body heights are normal. There is dextrocurvature of the mid lumbar spine. No acute fracture is seen. No traumatic malalignment. IMPRESSION: Degenerative disease in the lumbar spine without acute fracture. Dictated by: Dictated on workstation # [id number]
[2021-06-25] MEDS: ENOXAPARIN 40 MG/0.4 ML (LOVENOX) SYR SC SCH (19:44)
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
[2021-06-26 06:10] LABS: BASOPHILS % (AUTO) 0 % (0-10); EOSINOPHILS % (AUTO) 0 % (0-10); HEMATOCRIT 37 % (35-52); HEMOGLOBIN 11.9 g/dL (11.5-16.0); LYMPHOCYTES # (AUTO) 0.9 10^3/uL (1.0-4.0); LYMPHOCYTES % (AUTO) 14 % (12-44); MEAN CORPUSCULAR HEMOGLOBIN 29 pg (25-34); MEAN CORPUSCULAR HGB CONC 33 g/dL (32-36); MEAN CORPUSCULAR VOLUME 88 fL (80-99); MEAN PLATELET VOLUME 10.9 fL (9.0-12.2); MONOCYTES # (AUTO) 0.5 10^3/uL (0.0-1.0); MONOCYTES % (AUTO) 9 % (0-12); NEUTROPHILS # (AUTO) 4.6 10^3/uL (1.8-7.8); NEUTROPHILS % (AUTO) 77 % (42-75); PLATELET COUNT 190 10^3/uL (130-400); WHITE BLOOD COUNT 5.9 10^3/uL (4.3-11.0)
[2021-06-26 06:30] LABS: ALBUMIN 3.5 GM/DL (3.2-4.5)
[2021-06-26 06:31] LABS: POTASSIUM 3.7 MMOL/L (3.6-5.0)
[2021-06-26 06:32] LABS: CALCIUM 8.7 MG/DL (8.5-10.1)
[2021-06-26 06:33] LABS: TOTAL PROTEIN 5.7 GM/DL (6.4-8.2)
[2021-06-26 06:35] LABS: BILIRUBIN,TOTAL 0.7 MG/DL (0.1-1.0)
[2021-06-26 06:37] LABS: CREATININE SERUM 0.71 MG/DL (0.60-1.30)
[2021-06-26] MEDS: MULTIVIT W/MINERALS TAB (THERAGRAN M) PO SCH ×2 (09:11→10:07)
[2021-06-26] MEDS: SENNOSIDES 8.6 MG (SENOKOT) TAB PO SCH (09:24)
[2021-06-26] MEDS: DOCUSATE SODIUM 100 MG (COLACE) CAP PO SCH (09:24)
[2021-06-26 10:02] VITALS: BP 170/77
[2021-06-26] MEDS ORDERED: BACL10TA PO (11:47)
[2021-06-26] MEDS ORDERED: ACHD5005 PO (11:47)
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
[2021-06-26 12:38] VITALS: BP 162/77
[2021-06-26] MEDS: ACETAMINOPHEN 325 MG TABLET PO PRN (12:52)
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
[2021-06-26 16:04] VITALS: BP 157/76
[2021-06-26 17:45] VITALS: BP 157/76
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
== END 2021-06-26 17:45 | DRG 884 ==
LOC: EDUNIT# 16:57 → ER 16:58 → ICU 20:29 → 4TH 06-25 14:09
PROVIDERS: ADMIT Internal Medicine; ATTEND Internal Medicine
DX: F03.91 Unspecified dementia, unspecified severity, with behavioral disturbance (principal); F05 Delirium due to known physiological condition; G47.00 Insomnia, unspecified; M25.551 Pain in right hip; I48.91 Unspecified atrial fibrillation; E03.9 Hypothyroidism, unspecified; H54.7 Unspecified visual loss; F41.9 Anxiety disorder, unspecified; K21.9 Gastro-esophageal reflux disease without esophagitis; Z20.822 Contact with and (suspected) exposure to COVID-19; Z88.1 Allergy status to other antibiotic agents; Z88.5 Allergy status to narcotic agent; V48.5XXA Car driver injured in noncollision transport accident in traffic accident, initial encounter
CPT/HCPCS: 36415; 51702; 70450; 71045; 72100; 80053; 80306; 80320; 80329; 81000; 83735; 84100; 84443; 85007; 85025; 85027; 87636; 93005